=== PATIENT | female | born 1965 | race Caucasian/White ===

== ENCOUNTER → 2017-01-17 | Outpatient (CLI) | payer BC ==
[~2017-01-17] MED LIST: ACET-1256 PO; CYCL10TA6 PO; DICL-201 PO; GABA-113 PO; GADAVIST IV PRN; HYDR-5688 PO; LOSA1TAB38 PO; MRLP17 PO
--- NOTE | 2017-01-17 22:01 | DIAGNOSTIC IMAGING REPORT ---
LUMBAR SPINE COMBINATION CLINICAL HISTORY: 51 years-old Female presenting with STENOSIS, CAUDA EQUINA COMPRESSION, lumbar pain with bilateral leg pain, no strength in the legs, trouble walking, history of falls, history of surgery January 2016, acutely worsened on 01/06/2017. TECHNIQUE: Multisequence, multiplanar MR imaging of the lumbar spine was performed before and after the administration of intravenous contrast. IV contrast: 12 mL of Gadavist. COMPARISON: 01/08/2016. FINDINGS: Localizer images: Unremarkable. Postsurgical changes of bilateral transpedicular screw and brenden fixation of L3-L5 with laminectomy defects of L3 and L4. Regional susceptibility artifact limits evaluation. Adequate posterior decompression at these levels. Slight straightening of normal lumbar lordosis. Vertebral bodies maintain normal height, alignment, and bone marrow signal intensity apart from a benign hemangioma at L5 and minimal endplate edema at L2-3. Diffuse intervertebral disc desiccation. Multilevel degenerative changes detailed below: L1-2 disc bulge and facet arthropathy. Mild bilateral neural foraminal narrowing. No significant spinal canal narrowing. L2-3: Minimal endplate bony edema noted, likely degenerative in etiology. Focal disc bulge, ligamentum flavum thickening, and facet arthropathy. There is also focal disc extrusion along the right paramedian aspect with cranial and potentially caudal migration. The extruded disc material may also extend along the right lateral aspect of the thecal sac adjacent to the facet joint (series 5 image 7). This results in significant effacement of the right lateral recess at L2-3 as well as near complete effacement of CSF. This has significantly progressed since the prior exam in 2015. Moderate bilateral neural foraminal narrowing. L3-4: Effacement of the right lateral aspect of the thecal sac at the level of L3 with nonenhancing material (series 9 image 11) resulting in near complete effacement of CSF. No significant neural foraminal stenosis. L4-5: Disc bulge and facet arthropathy result in mild bilateral neural foraminal narrowing. No significant spinal canal narrowing. L5-S1: Minimal disc bulge without significant spinal canal or neural foraminal narrowing. Spinal cord in this in good position at the level of L1. Cauda equina has a buckled appearance suggesting impingement at the L2-3 level. Extensive fatty atrophy of paraspinal musculature. Superficial subcutaneous fluid collection in the posterior soft tissues likely seroma. This extends from the level of T12-L5. Mild enhancements of the distal spinal cord and nerve roots may relate to postsurgical change. Partially visualized cystic structures in the pelvis may be intraovarian. One of these cystic structures measures nearly 5 cm. IMPRESSION: 1. Postsurgical changes of L3-L5 posterior fusion and laminectomies of L3-4. Adequate posterior decompression of the thecal sac at these levels. Postsurgical seroma in the superficial soft tissues. 2. Interval development of significant spinal stenosis at L2-3 with findings concerning for cauda equina impingement, which appears to be due to an extruded L2-3 disc. The effacement of the thecal sac extends to the level of the inferior endplate of L3, which appears to be secondary to nonenhancing material along the right lateral aspect of the thecal sac. This may represent additional extruded disc, suggesting both cranial and caudal migration. The presence of only mild bony edema at the L2-3 endplates suggests against infection/epidural abscess. Correlate for symptoms of cauda equina syndrome. 3. Very degrees of neural foraminal narrowing as above. 4. Cystic structures in the pelvis may be intraovarian, one of which measures nearly 5 cm. In the perimenopausal or postmenopausal setting, this is unexpected. Further evaluation with dedicated pelvic ultrasound on a nonurgent basis recommended. The report will be called/faxed according to standard departmental protocol. Electronically signed by: Mo Marks M.D. 01/17/2017 10:00 PM Dictated Date/Time: 01/17/2017 9:42 PM
== END | disposition home or self-care (01) ==
LOC: C.MRI 20:11
PROVIDERS: ATTEND Orthopaedic Surgery Orthopaedic Surgery of the Spine
DX: G83.4 Cauda equina syndrome (principal); M48.061 Spinal stenosis, lumbar region without neurogenic claudication

== ENCOUNTER 2017-02-08 05:54 | Inpatient (IN) | payer BC ==
--- NOTE | 2017-01-24 12:54 | PAT Medication Instructions ---
Service Date Jan 24, 2017. Current Home Medication List Acetaminophen (Tylenol), 500 TAB PO PRN Diclofenac (Voltaren), 75 MG PO BID Hydrochlorothiazide (Hctz), 50 MG PO QAM Hydrocodone/Acetaminophen 10MG/325MG (Moody 10MG/325MG), 1 TAB PO Q6H PRN for rn Losartan Potassium (Cozaar), 100 MG PO QPM [zoloft], 1 TAB PO QPM Medication Instructions For Your Scheduled Surgery - Contact your surgeon for instructions for: Diclofenac (Voltaren), 75 MG PO BID - Hold the following medications the night before surgery: Losartan Potassium (Cozaar), 100 MG PO QPM - Hold the following medications the morning of surgery: Hydrochlorothiazide (Hctz), 50 MG PO QAM - Take the following medications the morning of surgery with a sip of water: Hydrocodone/Acetaminophen 10MG/325MG (Moody 10MG/325MG), 1 TAB PO Q6H PRN for rn (if needed, can be taken up to four hours before surgery) Acetaminophen (Tylenol), 500 TAB PO PRN (if needed, can be taken up to four hours before surgery) - Take the following medications as scheduled the night before surgery: [zoloft], 1 TAB PO QPM Hydrocodone/Acetaminophen 10MG/325MG (Moody 10MG/325MG), 1 TAB PO Q6H PRN for rn (if needed) Acetaminophen (Tylenol), 500 TAB PO PRN (if needed) If you have any questions please call us at [phone] or [phone] or [phone]
[2017-01-24 13:42] LABS: BASO % 0.5 %; BASO ABS # 0.04 K/uL (0-0.2); COMPLETE YES; EOS % 5.5 %; HEMATOCRIT 45.6 % (37-47); IG% 0.1 %; LYMPH % 30.6 %; MEAN CELL VOLUME 96.8 fL (80-100); MEAN CORPUSCULAR HEMOGLOBIN 33.3 pg (25-34); MEAN CORPUSCULAR HGB CONC 34.4 g/dl (32-36); MEAN PLATELET VOLUME 9.8 fL (7.4-10.4); MONO % 5.6 %; NEUT % 57.7 %; PLATELET COUNT 286 K/uL (130-400); RED BLOOD COUNT 4.71 M/uL (4.2-5.4); WHITE BLOOD COUNT 8.16 K/uL (4.8-10.8)
[2017-01-24 13:51] LABS: URINE APPEARANCE CLEAR (CLEAR); URINE BILIRUBIN NEG (NEG); URINE COLOR YELLOW; URINE NITRITE NEG (NEG); URINE SPECIFIC GRAVITY 1.023 (1.000-1.030); UROBILINOGEN NEG (NEG)
[2017-01-24 13:54] LABS: MANUAL MICROSCOPIC REQUIRED? NO; PROTHROMBIN TIME (PATIENT) 10.2 SECONDS (9.0-12.0); REVIEW REQ? NO
--- NOTE | 2017-01-24 13:58 | DIAGNOSTIC IMAGING REPORT ---
TWO VIEW CHEST CLINICAL HISTORY: Preoperative examination. FINDINGS: PA and lateral chest radiographs are compared to study dated 02/03/2016. The cardiomediastinal silhouette is unremarkable. The lungs and pleural spaces are clear. There is no pneumothorax. The bony thorax appears intact. Degenerative change is noted in the thoracic spine. Lumbar spinal fusion hardware is partially imaged. Cholecystectomy clips are present in the right upper quadrant. IMPRESSION: No active disease in the chest. Electronically signed by: Wai Galloway M.D. 01/24/2017 1:56 PM Dictated Date/Time: 01/24/2017 1:56 PM
[2017-01-24 15:34] LABS: BLOOD UREA NITROGEN 21 mg/dl (7-18); BUN/CREATININE RATIO 38.2 (10-20); CALCIUM 9.4 mg/dl (8.5-10.1); CARBON DIOXIDE 25 mmol/L (21-32); CHLORIDE 104 mmol/L (98-107); CREATININE 0.55 mg/dl (0.60-1.20); GLUCOSE 91 mg/dl (70-99); POTASSIUM 3.6 mmol/L (3.5-5.1); SODIUM 139 mmol/L (136-145)
[2017-01-25 16:29] VITALS: BMI 46.0
--- NOTE | 2017-02-07 11:52 | HISTORY & PHYSICAL EXAMINATION ---
DATE OF ADMISSION: 02/08/2017 HISTORY OF PRESENT ILLNESS: She has severe spinal stenosis of the spine, prior spinal reconstructive surgery. Her stenosis is up at to L2-L3 level of lumbar area. She has no gross deformity. MEDICATIONS: Include tramadol and losartan. PAST MEDICAL HISTORY: No anxiety or stroke. No asthma. No angina or chest pain. Gestational diabetes is positive. No blood disorders. No history of carcinoma. No renal or liver issues. She does list obesity. SOCIAL HISTORY: She is a smoker, 4-6 cigarettes per day. No alcohol. 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 PAST SURGICAL HISTORY: Left knee replacement, 2 C-sections, cholecystectomy, partial hysterectomy, and lumbar spine surgery. ALLERGIES: Denied. MEDICATIONS: Listed already including Zoloft, [place], Voltaren, and losartan. REVIEW OF SYSTEMS: She denies any fevers, sweats, chills, weight loss, gain or constitutional issues. Denies any HEENT complaints. Denies chest pain or palpitations. No asthma, wheezing, or shortness of breath. No nausea or vomiting. Her major complaint is musculoskeletal ower extremity difficulty with ambulation, weakness and occasional falling. OBJECTIVE: GENERAL: She is 5 feet 4 inches. She is 200 pounds. She is in distress. She communicates well. No anxiety or depression. Alert and oriented. VITAL SIGNS: Blood pressure 130/80, pulse 80. HEENT: Essentially normal. Specifically, pupils were reactive to light and accommodation. CARDIAC: Normal S1, S2. LUNGS: Clear. EXTREMITIES: Pulse was taken. There is no ectopy. ABDOMEN: Obese, nontender. Bowel sounds present. She has weakness of quadriceps function, iliopsoas function, profound decreased range of motion, gait abnormality, must use a cane or walker for support. Images were reviewed. She has some spinal stenosis above a prior fusion, postsurgical changes, significant stenosis at L2-L3, cauda equina impingement, no evidence of breakdown of implants. IMPRESSION: Includes a delightful patient with severe stenosis, prior lumbar spine surgery, slight degenerative scoliosis. DISPOSITION: Provinding a laminectomy and fusion at L1-L2, L2-L3, removal of existing rods and more than likely reinsertion to be done at [facility] coming up tomorrow.
[2017-02-08] VITALS (9 sets, daily range): BP systolic 134–171; BP diastolic 79–101; PULSE 81–100; TEMP 36.3–37; O2SAT 94–100; Ht 162.6 cm; Wt 121.5 kg
[~2017-02-08] VITALS: Ht 162.6 cm; Wt 121.5 kg
[~2017-02-08 05:54] MED LIST changes: -CYCL10TA6 PO; -GABA-113 PO; -GADAVIST IV PRN; +HYDR-4079 PO; -HYDR-5688 PO; +HYDR50TA3 PO; -MRLP17 PO; +zoloft PO
[2017-02-08] MEDS ORDERED: LACTATED RINGER'S 1000ML 1,000 ML IV SCH (06:00)
[2017-02-08] MEDS ORDERED: CEFAZOLIN 3000MG IV PUSH 15 ML IV SCH (06:00)
[2017-02-08] MEDS ORDERED: NSS 1000ML IV SCH (06:00)
[2017-02-08] MEDS ORDERED: GELATIN SPONGE SZ 100 ONE ×3 (06:49→10:05)
[2017-02-08] MEDS ORDERED: BUPIVACAINE/EPINEPHRINE 0.5% MPF 1:200,000 30 ML VIAL ONE (06:50)
[2017-02-08] MEDS ORDERED: THROMBIN FOR SOLN 20000 UNIT KIT ONE (06:50)
[2017-02-08] MEDS ORDERED: VANCOMYCIN HCL 1000MG/20ML VIAL ONE (06:50)
[2017-02-08] MEDS ORDERED: BACITRACIN 50000 UNIT VIAL ONE (06:50)
[2017-02-08] MEDS ORDERED: ONDANSETRON INJ 2 MG/ML 2 ML VIAL ONE ×2 (06:56→08:43)
[2017-02-08] MEDS ORDERED: LIDOCAINE HCL 2% 2 ML VIAL (20MG/ML) ONE (06:56)
[2017-02-08] MEDS ORDERED: MIDAZOLAM HCL 1 MG/ML 2ML VIAL ONE (06:56)
[2017-02-08] MEDS ORDERED: GLYCOPYRROLATE INJ 0.2 MG/ML VIAL ONE ×2 (06:56→08:43)
[2017-02-08] MEDS ORDERED: NEOSTIGMINE METHYLSULFATE 5 MG/5 ML SYR ONE (06:56)
[2017-02-08] MEDS ORDERED: DEXAMETHASONE SOD INJ 4 MG/ML VIAL ONE (06:56)
[2017-02-08] MEDS ORDERED: PROPOFOL IV EMULSION 10 MG/ML 20 ML VIAL IV ONE ×2 (06:56→08:42)
[2017-02-08] MEDS ORDERED: FENTANYL CITRATE INJ 50 MCG/1 ML 2 ML VIAL ONE ×4 (06:57→11:07)
--- NOTE | 2017-02-08 07:26 | History & Physical Bridge Note ---
H&P Re-Evaluation Bridge Note: I have examined the patient, reviewed the History & Physical and in the interval since the performance of the History & Physical I have noted the following changes of clinical significance: PLAN; DECOMPRESSION AND FUSION L1- 2, L2-3, REMOVAL OF OLD IMPLANTS AND REPLACEMENT
[2017-02-08] MEDS ORDERED: HYDROmorphone INJ 2 MG/ML SYR/VIAL ONE (08:11)
[2017-02-08] MEDS ORDERED: ROCURONIUM BROMIDE 10 MG/ML 5 ML VIAL IV ONE (08:43)
[2017-02-08] MEDS ORDERED: PROMETHAZINE HCL INJ 6.25 MG in SODIUM CHLORIDE 0.9% 50ML 50 ML IV PRN (09:00)
[2017-02-08] MEDS ORDERED: ATROPINE SULFATE 0.1 MG/ML 5ML SYR IV PRN (09:00)
[2017-02-08] MEDS ORDERED: EpHEDrine SULFATE INJ 50 MG/ML AMP IV PRN (09:00)
[2017-02-08] MEDS ORDERED: ONDANSETRON INJ 2 MG/ML 2 ML VIAL IV PRN ×2 (09:00→11:45)
[2017-02-08] MEDS ORDERED: ACETAMINOPHEN 1000 MG/100 ML IV IV ONE (09:43)
--- NOTE | 2017-02-08 11:07 | DIAGNOSTIC IMAGING REPORT ---
SPINE ONE VIEW, ANY LEVEL HISTORY: 51 years-old Female REMOVE HARDWARE/LAMINECTOMY/FUSION L1-5 status post removal of hardware. Laminectomy and fusion at L1-L5 COMPARISON: Lumbar spine radiographs 01/06/2017, lumbar spine MRI 01/17/2017 TECHNIQUE: 2 spot fluoroscopic images of the lumbar spine were obtained utilizing 20.2 seconds fluoroscopy time FINDINGS: Posterior interbody brenden and screw fusion hardware is seen extending from L1-L5. There is a few millimeters anterolisthesis L3 on L4. Alignment is otherwise satisfactory. Multilevel endplate spurring and intervertebral disc space narrowing of the spine. IMPRESSION: Fluoroscopic assistance as above. Please see operative report for further details. The above report was generated using voice recognition software. It may contain grammatical, syntax or spelling errors. Electronically signed by: Juan Garces M.D. 02/08/2017 11:05 AM Dictated Date/Time: 02/08/2017 11:02 AM
--- NOTE | 2017-02-08 11:37 | [facility] Post Operative Brief Note ---
Immediate Operative Summary Operative Date Feb 08, 2017. Pre-Operative Diagnosis Spinal stenosis Post-Operative Diagnosis Spinal stenosis Procedure(s) Performed L1-L2, L2-L3 Laminectomy and Fusion, L3-L4, L4-L5 Removal Existing Hardware and Reimplantation of new hardware Surgeon Dr. Esequiel Smyth Finishing Wire Sawyer Surgeon(s) Charly Evans PA-C Estimated Blood Loss 500 mL Findings stenosis and instability Specimens Permanent specimens A: Explanted hardware lumbar spine Complication(s) None Disposition Recovery Room / PACU
[2017-02-08] MEDS: FENTANYL CITRATE INJ 50 MCG/1 ML 2 ML VIAL IV PRN ×7 (11:38→12:45)
[2017-02-08] MEDS ORDERED: METOCLOPRAMIDE HCL INJ 5 MG/ML 2 ML VIAL IV PRN (11:45)
[2017-02-08] MEDS ORDERED: LORAZEPAM INJ 1 MG in SYRINGE 0.5 ML IV PRN (11:45)
[2017-02-08] MEDS ORDERED: CEFAZOLIN IV 1,000 MG in DEXTROSE 5% 50ML 50 ML IV SCH (11:45)
[2017-02-08] MEDS ORDERED: MAGNESIUM HYDROXIDE SUSP 30 ML UDC PO PRN (11:45)
[2017-02-08] MEDS ORDERED: HYDROmorphone INJ 1 MG/ML SYR IV PRN (11:45)
[2017-02-08] MEDS ORDERED: LORAZEPAM 1 MG TAB PO PRN (11:45)
[2017-02-08] MEDS ORDERED: OXYCODONE/ACETAMINOPHEN 5-325 TAB PO PRN ×2 (11:45)
[2017-02-08] MEDS ORDERED: HYDROmorphone INJ 2 MG/ML SYR/VIAL IV PRN (11:45)
[2017-02-08] MEDS ORDERED: ACETAMINOPHEN 325 MG TAB PO PRN (11:45)
[2017-02-08] MEDS ORDERED: PROMETHAZINE HCL INJ 12.5 MG in SODIUM CHLORIDE 0.9% 50ML 50 ML IV PRN (11:45)
[2017-02-08] MEDS: HYDROmorphone INJ 1 MG/ML SYR IV PRN ×6 (11:55→12:21)
[2017-02-08 12:11] LABS: HEMATOCRIT 39.7 % (37-47)
[2017-02-08] MEDS ORDERED: LORAZEPAM 2 MG/ML 1 ML VIAL ONE (12:22)
--- NOTE | 2017-02-08 12:29 | OPERATIVE REPORT ---
DATE OF OPERATION: 02/08/2017 PREOPERATIVE DIAGNOSIS: Severe stenosis and instability, lumbar spine at L1, L2, L3 and instabilities at the same levels. POSTOPERATIVE DIAGNOSIS: Same. PROCEDURES: 1. Extraction of prior instrumentation L3, L4, L5 lumbar spine. 2. Decompression lumbar spine at L1-L2, and L2-L3 lumbar spine. 3. Pedicle screw instrumentation, L1-L2 and revision L3, L4 and L5. 4. Posterior lateral effusion L1 through L4. 5. Posterior decompression laminectomy, foraminotomy and facetectomy L1 through L3. SURGEON: Dr. Smyth. TRUCK CLEANER: Charly Evans PA-C. COMPLICATIONS: Zero. BLOOD LOSS: Controlled, 500 mL. Sponge and needle count correct at the close. Globus instrumentation used. DESCRIPTION OF PROCEDURE: The patient was taken to the operating room and general intubated anesthetic provided to the patient. Antibiotics delivered, Acevedo catheter inserted, placed prone, prepped and draped sterile. We made a skin incision and fascia incision, putting a deep self-retaining retractor. The dissection was fairly tedious, but fairly easily done. We had cold exposure from L1 down to L5 bilaterally. I first removed the longitudinal brenden and caps from L3-L5. This opened up the spinal area. I meticulously decompressed the spinal canal L1, L2, L3, facetectomy, foraminotomy, partial facetectomy. We took off a significant amount of ligamentum flavum hypertrophy that was placed with the mechanical decompression of the associated nerve roots. We then instrumented the spine. On the right hand side, we exchanged screws and safely got pedicle screws in L1, L2, L3, L4, L5 on the right and duplicated the same effort on the left hand side. We connected it with a lordotic brenden for support. We tightened down the caps. We used a cross connector as well. We did posterolateral bone grafting at L1 down to L4 to initiate the fusion. We first irrigated thoroughly with about 800 mL of fluid, put some Gelfoam on the dura, put some vancomycin powder as well. We closed fascia to fascia with #1 Vicryl suture over a Hemovac drain, 2-0 in the subcuticular layer and staple gun on the skin. Sterile dressing applied. The patient returned to recovery room satisfactory and stable. No apparent complications. I attest to the content of the Intraoperative Record and any orders documented therein. Any exception s are noted below.
[2017-02-08] MEDS ORDERED: NURSING VERBAL MED ORDER ONE ×2 (12:30→12:45)
[2017-02-08] MEDS ORDERED: KETOROLAC TROMETHAMINE 30 MG/ML VIAL ONE (12:35)
[2017-02-08] MEDS ORDERED: HYDROmorphone HCL 0.5MG/ML 50 ML CASSETTE ONE (12:35)
[2017-02-08] MEDS ORDERED: KETOROLAC TROMETHAMINE 30 MG/ML VIAL IV. STA (13:20)
[2017-02-08] MEDS ORDERED: FENTANYL CITRATE INJ 50 MCG/1 ML 2 ML VIAL IV PRN (13:30)
[2017-02-08] MEDS ORDERED: NALOXONE HCL 0.4 MG/1 ML VIAL/CARP IV PRN (13:45)
[2017-02-08] MEDS: SODIUM CHLORIDE 0.9% 1000ML 1,000 ML IV SCH ×2 (13:45→14:23)
[2017-02-08] MEDS: HYDROmorphone HCL 0.5MG/ML 50 ML CASSETTE IV PRN (15:03)
[2017-02-08] MEDS: CEFAZOLIN IV 2,000 MG in SYRINGE 0 ML IV SCH ×2 (16:24→23:28)
[2017-02-08] MEDS: ACETAMINOPHEN IV 1,000 MG in EMPTY BAG 0 ML IV SCH ×2 (16:24→23:29)
[2017-02-08] MEDS: DEXAMETHASONE INJ 10 MG in SYRINGE 0 ML IV SCH ×2 (16:25→23:29)
[2017-02-08] MEDS: LOSARTAN POTASSIUM 50 MG TAB PO SCH (21:04)
[2017-02-09] VITALS (9 sets, daily range): BP systolic 141–164; BP diastolic 80–95; PULSE 95–112; TEMP 36.8–37.5; O2SAT 93–99
[2017-02-09] MEDS: SODIUM CHLORIDE 0.9% 1000ML 1,000 ML IV SCH ×2 (01:33)
[2017-02-09] MEDS ORDERED: BISACODYL 5 MG TABEC PO PRN (06:00)
[2017-02-09] MEDS ORDERED: BISACODYL 10 MG SUPP PR PRN (06:00)
[2017-02-09] MEDS: HYDROmorphone HCL 0.5MG/ML 50 ML CASSETTE IV PRN ×2 (07:04→22:51)
[2017-02-09] MEDS: ACETAMINOPHEN IV 1,000 MG in EMPTY BAG 0 ML IV SCH ×2 (07:35→15:31)
[2017-02-09] MEDS: DEXAMETHASONE INJ 10 MG in SYRINGE 0 ML IV SCH ×2 (07:35→15:30)
[2017-02-09] MEDS: CEFAZOLIN IV 2,000 MG in SYRINGE 0 ML IV SCH (07:35)
[2017-02-09] MEDS: HYDROCHLOROTHIAZIDE 50 MG TAB PO SCH (07:36)
[2017-02-09] MEDS: POLYETHYLENE (MIRALAX) 17 GM PACK PO SCH (07:36)
--- NOTE | 2017-02-09 10:22 | Anesthesiology Progress Note ---
Anesthesia Post Op Note Date & Time Feb 09, 2017 at 10:21 Vital Signs Vital Signs Past 12 Hours Date Time Temp Pulse Resp B/P (MAP) Pulse Ox O2 Delivery O2 Flow Rate FiO2 02/09/17 07:47 36.9 107 16 156/92 (113) 99 Room Air 02/09/17 07:30 Room Air 02/09/17 03:50 36.8 95 14 141/82 (101) 97 Room Air 02/09/17 00:00 Room Air 02/08/17 23:12 36.8 100 20 151/90 (110) 96 Room Air Notes Mental Status: alert / awake / arousable, participated in evaluation Pt Amnestic to Procedure: Yes Nausea / Vomiting: adequately controlled Pain: adequately controlled Airway Patency, RR, SpO2: stable & adequate BP & HR: stable & adequate Hydration State: stable & adequate Anesthetic Complications: no major complications apparent
--- NOTE | 2017-02-09 11:18 | PROGRESS NOTE ---
DATE: 02/09/2017 OBJECTIVE: Vital signs stable, alert, oriented. Mentation normal. Improvement in neurological status. 39.7 hematocrit. ASSESSMENT: Status post reconstructive lumbar spine surgery. DISPOSITION: We will get up and ambulatory today. We are pushing for [facility]. I think she needs a good 7-10 days there I think is the appropriate pathway as well. Hopefully get her to [facility] tomorrow or the next day.
[2017-02-09] MEDS ORDERED: NURSING VERBAL MED ORDER ONE (14:45)
[2017-02-09] MEDS: LOSARTAN POTASSIUM 50 MG TAB PO SCH (20:43)
[2017-02-10] MEDS: DEXAMETHASONE INJ 10 MG in SYRINGE 0 ML IV SCH
[2017-02-10] MEDS: ACETAMINOPHEN IV 1,000 MG in EMPTY BAG 0 ML IV SCH ×3 (00:01→16:00)
[2017-02-10 03:00] VITALS: BP 138/78; PULSE 95; TEMP 36.7; TEMP 36.9; O2SAT 94; O2SAT 96
[2017-02-10] MEDS: HYDROmorphone HCL 0.5MG/ML 50 ML CASSETTE IV PRN (06:56)
[2017-02-10] MEDS ORDERED: NURSING VERBAL MED ORDER ONE (07:15)
[2017-02-10 08:00] VITALS: BP 134/86; PULSE 88; TEMP 36.8; O2SAT 100
--- NOTE | 2017-02-10 08:05 | Discharge Instructions ---
Discharge Instructions Date of Service Feb 10, 2017. Admission Reason for Admission: Lumbar Spinal Stenosis Discharge Discharge Diagnosis / Problem: same, spinal reconstruction Discharge Goals Goal(s): Improve function Activity Recommendations Activity Limitations: as noted below Lifting Limitations: gradually increase as tolerated, until after follow-up appointment Exercise/Sports Limitations: gradually increase as tolerated May Resume Sexual Activity: after follow-up appointment Shower/Bathe: keep incision dry Driving or Machine Use: careful with bending . Current Hospital Diet Patient's current hospital diet: Regular Diet Discharge Diet Recommended Diet: Regular Diet Procedures Procedures Performed: L1-L2, L2-L3 Laminectomy and Fusion, L3-L4, L4-L5 Removal Existing Hardware and Reimplantation of new hardware Pending Studies Studies pending at discharge: no Medical Emergencies . Who to Call and When: Medical Emergencies: If at any time you feel your situation is an emergency, please call 911 immediately. . Non-Emergent Contact Non-Emergency issues call your: Surgeon . "Provider Documentation" section prepared by Esequiel Smyth. . VTE Core Measure Inpt VTE Proph given/why not?: Treatment not indicated
[2017-02-10] MEDS: HYDROCHLOROTHIAZIDE 50 MG TAB PO SCH (08:22)
[2017-02-10] MEDS: POLYETHYLENE (MIRALAX) 17 GM PACK PO SCH (08:22)
[2017-02-10 09:03] VITALS: O2SAT 100
[2017-02-10] MEDS: OXYCODONE HCL IR 5 MG TAB (IMMEDIATE RELEASE) PO PRN ×2 (11:34→16:06)
[2017-02-10 15:07] VITALS: BP 134/86; PULSE 88; TEMP 36.8; O2SAT 100
[2017-02-10 15:15] VITALS: BP 159/88; PULSE 107; TEMP 36.7; O2SAT 96
--- NOTE | 2017-02-11 08:55 | DISCHARGE SUMMARY ---
She is improved. She is stable. She was ready for discharge on 02/10/2017. That was accomplished, went to [facility]. She had no significant complications. No chest pain or shortness of breath. Vital signs stable. Neurological improvement seen already. Discharged home to [facility]. Follow up in 10 days. Instructions, precautions, warnings provided. Will continue with her medications.
== END 2017-02-10 18:10 | DRG 460 ==
LOC: C.ACU 05:54 → C.3E 11:38 → ENRESERV 12:16
PROVIDERS: ADMIT Orthopaedic Surgery Orthopaedic Surgery of the Spine; ATTEND Orthopaedic Surgery Orthopaedic Surgery of the Spine
PROC: 0SP004Z Removal of Internal Fixation Device from Lumbar Vertebral Joint, Open Approach (ICD-10-PCS; principal; 2017-02-08 07:30)
PROC: 0SG10K1 Fusion of 2 or more Lumbar Vertebral Joints with Nonautologous Tissue Substitute, Posterior Approach, Posterior Column, Open Approach (ICD-10-PCS; principal; 2017-02-08 07:30)
DX: M48.061 Spinal stenosis, lumbar region without neurogenic claudication (principal); Z68.41 Body mass index [BMI] 40.0-44.9, adult; M53.2X6 Spinal instabilities, lumbar region; F17.210 Nicotine dependence, cigarettes, uncomplicated; Z79.899 Other long term (current) drug therapy; Z79.891 Long term (current) use of opiate analgesic; Z98.1 Arthrodesis status; E66.9 Obesity, unspecified

== ENCOUNTER → 2017-03-23 | Outpatient (CLI) | payer BC ==
--- NOTE | 2017-03-23 15:53 | MAMMOGRAPHY REPORT ---
BILATERAL DIGITAL SCREENING MAMMOGRAM TOMOSYNTHESIS WITH CAD: 03/23/2017 CLINICAL HISTORY: Routine screening. Patient has no complaints. TECHNIQUE: Breast tomosynthesis in addition to standard 2D mammography was performed. Current study was also evaluated with a Computer Aided Detection (CAD) system. COMPARISON: Comparison is made to exams dated: 03/18/2016 mammogram, 03/11/2015 mammogram, 03/10/2014 beth mogram, 03/05/2012 mammogram, 03/07/2013 mammogram, and 03/04/2011 mammogram - [facility]ter. BREAST COMPOSITION: The tissue of both breasts is almost entirely fatty. FINDINGS: No suspicious masses, calcifications, or areas of architectural distortion are noted in ei ther breast. There has been no significant interval change compared to prior exams. IMPRESSION: ACR BI-RADS CATEGORY 1: NEGATIVE There is no mammographic evidence of malignancy. A 1 year screening mammogram is recommended. The pa tient will receive written notification of the results. Approximately 10% of breast cancers are not detected with mammography. A negative mammographic report should not delay biopsy if a clinically suggestive mass is present. Leny Reeder M.D. /:03/23/2017 10:35:03 [employer] Truck Driver: Shaniqua HAUSER(Constantine)(M), [facility] letter sent: Normal 1/2 BI-RADS Code: ACR BI-RADS Category 1: Negative
== END | disposition home or self-care (01) ==
LOC: C.MAMM 08:23
PROVIDERS: ATTEND Family Medicine
DX: Z12.31 Encounter for screening mammogram for malignant neoplasm of breast (principal)

== ENCOUNTER 2019-09-03 13:18 | Inpatient (IN) ==
[2019-09-03] MEDS ORDERED: PROCHLORPERAZINE 2 ML IV ONE (15:12)
[2019-09-03] MEDS ORDERED: ACETAMINOPHEN 500 MG TAB PO STA (15:12)
[2019-09-03] MEDS ORDERED: SODIUM CHLORIDE 0.9% 1000ML 1,000 ML IV SCH (15:14)
[2019-09-03 15:44] LABS: Basophils # (auto) 0.02 K/uL (0-0.2); Basophils % (auto) 0.1 %; Eosinophils # (auto) 0.04 K/uL (0-0.5); Eosinophils % (auto) 0.3 %; Hematocrit (blood only) 42.9 % (37-47); Hemoglobin 14.7 g/dL (12.0-16.0); Immature Granulocytes # (auto) 0.03 K/uL (0.00-0.02); Immature Granulocytes % (auto) 0.2 %; Lymphocytes # (auto) 1.31 K/uL (1.2-3.4); Lymphocytes % (auto) 9.8 %; Mean Corpuscular Hemoglobin 33.3 pg (25-34); Mean Corpuscular Hgb Conc 34.3 g/dL (32-36); Mean Corpuscular Volume 97.3 fL (80-100); Mean Platelet Volume 10.5 fL (7.4-10.4); Monocytes # (auto) 1.07 K/uL (0.11-0.59); Neutrophils # (auto) 10.94 K/uL (1.4-6.5); Neutrophils % (auto) 81.6 %; Platelet Count 258 K/uL (130-400); RDW Coefficient of Variation 12.6 % (11.5-14.5); RDW Standard Deviation 44.6 fL (36.4-46.3); Red Blood Count 4.41 M/uL (4.2-5.4); White Blood Count 13.41 K/uL (4.8-10.8)
[2019-09-03 15:54] LABS: BUN Creatinine Ratio 26.5 (10-20); Calcium 9.8 mg/dl (8.5-10.1); Creatinine Clr Calc Pharmacy 92.7 ml/min; Est GFR (African American) 85.2; Est GFR (Non-African American) 73.5; Potassium 2.8 mmol/L (3.5-5.1)
--- NOTE | 2019-09-03 15:59 | CT Scan Report ---
HEAD CT NONCONTRAST CT DOSE: 1121.36 mGy.cm HISTORY: Neck pain. headache TECHNIQUE: Multiaxial CT images of the head were performed without the use of intravenous contrast. A utomated exposure control was utilized for this study. A dose lowering technique was utilized adheri ng to the principles of ALARA. Comparison: None. Findings: The paranasal sinuses and mastoid air cells are clear. The calvarium and skull base are int act. The ventricles and sulci are within normal limits. There is no mass, hematoma, midline shift, or acute infarct. Impression: No acute intracranial abnormality. ACT 112: Negative or not required by law. Electronically signed by: Zhen Low M.D. 09/03/2019 3:58 PM
--- NOTE | 2019-09-03 16:03 | CT Scan Report ---
CERVICAL SPINE CT CT DOSE: HISTORY: neck pain TECHNIQUE: Multiaxial CT images of the cervical spine were performed and reformatted in the sagittal and coronal plane without the use of contrast. A dose lowering technique was utilized adhering to th e principles of ALARA. COMPARISON: None. FINDINGS: No fractures. Prevertebral soft tissues and the C1-C2 interval are intact. No pneumothorax. Mild dextroscoliosis which could be positional. 2 mm of anterolisthesis of C3 on C4 is likely due to long-standing degenerative change. Severe disc space narrowing at C4-C5 and moderate disc space narr owing at C5-C6 with endplate osteophytes. Mild right and moderate left facet osteoarthritis throughou t the majority of the cervical spine. Mild central canal narrowing at C4-C5 and C5-C6 due to the broa d-based posterior disc osteophyte complexes. IMPRESSION: 1. No fractures within the cervical spine. 2. Degenerative changes as described above. ACT 112: Negative or not required by law. Electronically signed by: Zhen Low M.D. 09/03/2019 4:01 PM
[2019-09-03] MEDS ORDERED: POTASSIUM CHLORIDE 10 MEQ TABCR PO STA (16:15)
[2019-09-03 17:21] LABS: Lyme Ab IgG w/WB Rflx Negative (Negative); Lyme Ab IgM w/WB Rflx Negative (Negative)
--- NOTE | 2019-09-03 17:46 | Fluoroscopy Report ---
FLUOROSCOPIC GUIDED LUMBAR PUNCTURE CLINICAL HISTORY: Neck pain. Leukocytosis. PROCEDURE: The risks, benefits, and alternatives to the procedure is discussed with the patient who v oiced understanding. Written informed consent was obtained. The patient was placed prone on the fluor oscopy table. The lower back was prepped and draped in the usual sterile fashion. 1% lidocaine was us ed for local anesthesia. A 20-gauge spinal needle was inserted into the L3-L4 laminectomy level, and approximately 10 cc of clear colorless cerebrospinal fluid was removed. A single spot fluoroscopic im age was saved. The patient tolerated the procedure well. There were no immediate complications. The p atient was then returned to the emergency department for further observation. Fluoroscopy time: 4 seconds. IMPRESSION: Fluoroscopic guided lumbar puncture with removal of approximately 10 cc of cerebrospinal fluid. There were no immediate complications. ACT 112: Negative or not required by law. Electronically signed by: Wai Galloway M.D. 09/03/2019 5:45 PM
[2019-09-03 18:05] LABS: CSF Glucose 71 mg/dl (40-70); Total Protein CSF 35.1 mg/dl (15-45)
[2019-09-03 18:24] LABS: Appearance CSF Clear; CSF Count Tube # 3; CSF Xanthrochromic No xanthochromia; Color CSF Colorless
[2019-09-03 18:26] LABS: Red Blood Cell CSF (A) 2 /uL (0-)
[2019-09-03 18:29] LABS: White Blood Cell CSF (A) 18 /uL (0-5)
[2019-09-03] MEDS ORDERED: VANCOMYCIN CONSULT ACTIVE PRN ×2 (18:34→21:14)
[2019-09-03] MEDS ORDERED: cefTRIAXone SODIUM 2,000 MG/70 ML BAG IV STA (18:34)
[2019-09-03] MEDS ORDERED: VANCOMYCIN HCL 2,500 MG in SODIUM CHLORIDE 0.9% 500 ML IV ONE (18:34)
[2019-09-03] MEDS ORDERED: DEXAMETHASONE SOD INJ 4 MG/ML VIAL IV STA (18:34)
[2019-09-03 18:35] LABS: CSF Chemistry Tube # 1
[2019-09-03] MEDS ORDERED: AMPICILLIN 2,000 MG in SODIUM CHLOR 0.9% AD-VAN 100 ML IV SCH (18:45)
--- NOTE | 2019-09-03 19:02 | History & Physical Report ---
Date of Service September 03, 2019 Assessment & Plan (1) Meningitis: Patient came to the emergency department with neck pain leukocytosis and vomiting lumbar puncture is abnormal with elevated white count mildly elevated protein concern for meningitis was undertaken cultures were sent patient was initiated on Rocephin ampicillin vancomycin and dexamethasone which will be continued until cultures are negative. This will be also unless the bio fire analysis of cerebrospinal fluid confirms a viral meningitis which is more likely to be discovered. Patient was administered dexamethasone in the emergency department prior to antibiotic ministration this might be continued the last Gram stain or culture confirmed meningococcal suspicion (2) Lumbar stenosis: Patient with history of chronic pain lumbar spinal stenosis status post surgical repair taking gabapentin which will be continued with offered Tylenol and morphine as needed (3) Diabetes: Patient typically takes Trulicity and metformin typically seeing [facility] patient week given sliding scale insulin and these medications will be held at this time she will be on a carbohydrate conservative diet (4) Hypothyroidism: Patient be maintained on Synthroid 25 mcg a day (5) Hypertension: Patient typically is on hydrochlorothiazide this is held that she is hydrated after lumbar puncture. Patient is marked hypokalemia in the ER this will be augmented by IV fluid and oral medication a magnesium will be checked in the morning (6) DVT prophylaxis: SCDs will be employed for DVT prevention given recent lumbar puncture History of Present Illness Primary Care Provider: [facility] 54-year-old female who has a history of diabetes chronic back pain who presents with 2-day history of headache neck pain and vomiting. She is found be markedly hypokalemic with a potassium of 2.8 however she has leukocytosis and there was initially some concern of possible meningitis. A lumbar puncture was performed which showed elevation of white count normal glucose and elevated protein. Subsequently a concern for meningitis was undertaken the patient was placed in isolation she was given ampicillin vancomycin dexamethasone and ceftriaxone. She was asked to be admitted until culture results and bio fire analysis of her cerebrospinal fluid could be undertaken. Remainder of her laboratories incl uding renal function hemoglobin and glucose were normal. The patient has a pending Lyme test also. Allergies Allergy/AdvReac Type Severity Reaction Status Date / Time celecoxib Allergy Intermediate RASH, Verified 09/03/19 15:21 TOLERATES ADVIL adhesive Allergy Unknown REDNESS Verified 09/03/19 15:21 WITH BANDAIDS Home Medications Home Medications Medication Instructions Recorded Confirmed Type dulaglutide [Trulicity] 1.5 mg SUBCUT WK 09/03/19 09/03/19 History gabapentin 300 - 600 mg PO BID 09/03/19 09/03/19 History hydrochlorothiazide 25 mg PO QAM 09/03/19 09/03/19 History levothyroxine 25 mcg PO QAM 09/03/19 09/03/19 History metformin 500 mg PO QAM 09/03/19 09/03/19 History naproxen 375 mg PO BID 09/03/19 09/03/19 History Past Med/Surg History Surgical History History of section History of cholecystectomy History of dilation and curettage History of foot surgery History of hysteroscopy with endometrial ablation Family History Mother Breast cancer Social History Feels Safe at Home: Yes Smoking Status: Current every day smoker Review of Systems Review of Systems: Mild distress and fatigue no headache, blurry or double vision no speech or swallowing issues no chest pain, pressure or palpitations no shortness of breath, cough or wheezes no abdominal pain, nausea or vomiting, diarrhea or constipation no dysuria, hematuria or frequency no focal joint pain or swelling no back pain, CVA tenderness or radicular pain no bruising, bleeding or rashes no focal signs of weakness or numbness or altered sensation no complaints or anxiety or depression. Physical Exam Physical Exam: The patient appeared well nourished and normally developed. Vital signs as documented. Head exam is normocephalic atraumatic no scleral icterus Neck is without JVD, thyromegaly, or carotid bruits. Lungs are clear to auscultation, no focal loss of breath sounds Cardiac exam, Rhythm is regular.. No murmurs, rubs or gallops. Abdominal exam reveals normal bowel sounds, soft non tender, no masses Extremities are nonedematous and both pedal pulses are normal. Neurologic exam is alert and oriented, no focal loss of strength or sensation Skin is without bruises or rashes Psychologically is without concerns for anxiety or depression Results & Data Results & Data ([facility]) Vital Signs (Past 12 Hours) Vital Signs Temp Pulse Pulse Resp BP Pulse Ox 09/03/19 18:01 97 H 12 96 09/03/19 18:00 91 H 19 132/84 95 09/03/19 17:45 94 H 16 143/81 H 94 09/03/19 17:37 96 H 98 09/03/19 17:36 126/83 96 09/03/19 16:30 96 H 16 134/86 09/03/19 16:00 101 H 19 09/03/19 15:38 95 H 18 98 09/03/19 15:30 98 H 22 09/03/19 15:23 98 H 20 09/03/19 13:25 98.4 F 98 H 18 154/[address] scan of the head 09/03/2019- negative CT scan of the neck 09/03/2019 no fractures within the cervical spine degenerative changes with mild central canal narrowing C4-5 C5-6 due to broad- based posterior disc osteophyte complexes. Code Status & VTE Plan VTE Prophylaxis Plan VTE Prophylaxis will be ordered: No PG Care Time/CCT Total # of Minutes Spent Total Time Spent with Patient: Total time spent is greater than 50% in coordination of care (as documented) at patient's floor/unit and/or counseling patient: Coding Level of Care Code 42361 Initial Inpt Care Lvl 3 Diagnoses Meningitis G03.9 Lumbar stenosis M48.061 Diabetes E11.9 Hypothyroidism E03.9 Hypertension I10 DVT prophylaxis Z29.9
--- NOTE | 2019-09-03 19:19 | Emergency Department Note ---
History of Present Illness General Chief complaint: Vomiting Stated complaint: VOMITING, NECK PAIN Time Seen by Provider: 09/03/19 14:37 Source: patient Mode of arrival: ambulatory Limitations: no limitations History of Present Illness Provider complaint: Headache, neck pain, vomiting Maximum Pain Intensity: 4 This patient is a 54-year-old female who presents to the emergency department with complaints of headache, neck pain and vomiting over the last several days. Patient states that she has not had a fever. Patient has a history of lumbar decompression and has hardware in place. She denies any history of significant headaches but does take gabapentin and NSAIDs for chronic back pain. Patient denies any chest pain, shortness of breath, abdominal pain, blood in the emesis or stools. Home Medications Home Medications Medication Instructions Recorded Confirmed Type dulaglutide [Trulicity] 1.5 mg SUBCUT WK 09/03/19 09/03/19 History gabapentin 300 - 600 mg PO BID 09/03/19 09/03/19 History hydrochlorothiazide 25 mg PO QAM 09/03/19 09/03/19 History levothyroxine 25 mcg PO QAM 09/03/19 09/03/19 History metformin 500 mg PO QAM 09/03/19 09/03/19 History naproxen 375 mg PO BID 09/03/19 09/03/19 History Allergies Allergy/AdvReac Type Severity Reaction Status Date / Time celecoxib Allergy Intermediate RASH, Verified 09/03/19 15:21 TOLERATES ADVIL adhesive Allergy Unknown REDNESS Verified 09/03/19 15:21 WITH BANDAIDS Past Med/Surg History Surgical History History of section History of cholecystectomy History of dilation and curettage History of foot surgery History of hysteroscopy with endometrial ablation Family History Mother Breast cancer Social History Feels Safe at Home: Yes Smoking Status: Current every day smoker Review of Systems See HPI for pertinent positives & negatives. and A total of 10 systems reviewed and were otherwise negative Physical Exam Vital Signs Vital Signs - 24 hr 09/03/19 13:25 09/03/19 15:23 09/03/19 15:30 Temperature 36.9 C Temperature Source Oral Pulse Rate 98 H 98 H 98 H Pulse Rate [Left Apical] Pulse Rate from SpO2 Sensor Pulse Rhythm [Left Apical] Pulse Strength [Left Apical] Respiratory Rate 18 20 22 Respiratory Effort / Characteristics Non-Labored Spontaneous Respiratory Depth Normal Blood Pressure 154/85 H Blood Pressure Mean 108 Pulse Oximetry 98 Oxygen Delivery Method Sepsis Recent Fever Within 48 Hours No Sepsis New/Unexplained Change in Mental Status No Sepsis Action Taken by Nursing No Action Required 09/03/19 15:38 09/03/19 16:00 09/03/19 16:30 Temperature Temperature Source Pulse Rate 101 H 96 H Pulse Rate [Left Apical] 95 H Pulse Rate from SpO2 Sensor Pulse Rhythm [Left Apical] Regular Pulse Strength [Left Apical] Normal Respiratory Rate 18 19 16 Respiratory Effort / Characteristics Non-Labored Spontaneous Respiratory Depth Normal Blood Pressure 134/86 Blood Pressure Mean 102 Pulse Oximetry 98 Oxygen Delivery Method Room Air Sepsis Recent Fever Within 48 Hours Sepsis New/Unexplained Change in Mental Status Sepsis Action Taken by Nursing 09/03/19 17:36 09/03/19 17:37 09/03/19 17:45 Temperature Temperature Source Pulse Rate 96 H 94 H Pulse Rate [Left Apical] Pulse Rate from SpO2 Sensor 92 H 97 H 94 H Pulse Rhythm [Left Apical] Pulse Strength [Left Apical] Respiratory Rate 16 Respiratory Effort / Characteristics Respiratory Depth Blood Pressure 126/83 143/81 H Blood Pressure Mean 98 96 Pulse Oximetry 96 98 94 Oxygen Delivery Method Sepsis Recent Fever Within 48 Hours Sepsis New/Unexplained Change in Mental Status Sepsis Action Taken by Nursing 09/03/19 18:00 09/03/19 18:01 Temperature Temperature Source Pulse Rate 91 H 97 H Pulse Rate [Left Apical] Pulse Rate from SpO2 Sensor 93 H 97 H Pulse Rhythm [Left Apical] Pulse Strength [Left Apical] Respiratory Rate 19 12 Respiratory Effort / Characteristics Respiratory Depth Blood Pressure 132/84 Blood Pressure Mean 109 Pulse Oximetry 95 96 Oxygen Delivery Method Sepsis Recent Fever Within 48 Hours Sepsis New/Unexplained Change in Mental Status Sepsis Action Taken by Nursing Vital signs reviewed. General: Generally well-appearing 54-year-old female, in no significant distress HEENT: No scleral icterus, PERRLA, neck supple. Atraumatic. Cardiovascular: Regular rate and rhythm, no extra sounds. Pulmonary: Clear to auscultation bilaterally, normal work of breathing. Abdomen: Soft, nontender, nondistended, positive bowel sounds. Musculoskeletal: Atraumatic, no peripheral edema. Nontender to palpation over the cervical, thoracic and lumbar spines. Tender to palpation of the trapezius muscles and cervical paraspinous muscles bilaterally Neurologic: Patient awake alert and oriented x 3, full range of motion of the neck without difficulty. Post surgical change noted to the lumbar spine that appears to be well-healed. Skin: Warm, dry, no rash Course Administered Medications Discontinued Medications Acetaminophen (Tylenol) 1,000 mg PO NOW STA Stop: 09/03/19 15:13 Last Admin: 09/03/19 15:35 Dose: 1,000 mg Documented by: [id number] Dexamethasone (Decadron) 10 mg IV NOW STA Stop: 09/03/19 18:35 Last Admin: 09/03/19 18:56 Dose: 10 mg Documented by: [id number] Diphenhydramine HCl (Benadryl Capsule) 25 mg PO NOW ONE Stop: 09/03/19 15:14 Last Admin: 09/03/19 15:36 Dose: 25 mg Documented by: [id number] Prochlorperazine (Compazine) 2 mls @ 1 mls/min IV ONE ONE Stop: 09/03/19 15:13 Last Admin: 09/03/19 15:35 Dose: 1 mls/min Documented by: [id number] Sodium Chloride (Nss 1000ml) 1,000 mls @ 999 mls/hr IV .Q1H1M CHAPITO Stop: 09/03/19 16:14 Last Infusion: 09/03/19 16:37 Dose: 0 mls/hr Documented by: [id number] Admin: 09/03/19 15:35 Dose: 999 mls/hr Documented by: [id number] Ceftriaxone Sodium (Rocephin) 2,000 mg in 70 mls @ 140 mls/hr IV NOW STA Stop: 09/03/19 19:03 Last Admin: 09/03/19 18:56 Dose: 140 mls/hr Documented by: [id number] Potassium Chloride (Klor-Con M10) 40 meq PO NOW STA Stop: 09/03/19 16:16 Last Admin: 09/03/19 18:17 Dose: 40 meq Documented by: [id number] Medical Decision Making Differential Diagnosis Differential diagnosis Intracranial hemorrhage, intracranial mass, migraine headache, tension headache, sinusitis, meningitis Medical Records Attestation: I reviewed the patient's medical records. Home Medications Current Medication List: was personally reviewed by me Laboratory Data Attestation: I reviewed the patient's lab results. Result diagrams: 09/03/19 15:27 09/03/19 15:27 Lab Results 09/03/19 09/03/19 09/03/19 Range/Units 15:27 15:27 15:27 WBC 13.41 H (4.8-10.8) K/uL RBC 4.41 (4.2-5.4) M/uL Hgb 14.7 (12.0-16.0) g/dL Hct 42.9 (37-47) % MCV 97.3 (80-100) fL MCH 33.3 (25-34) pg MCHC 34.3 (32-36) g/dL RDW Std Deviation 44.6 (36.4-46.3) fL RDW Coeff of Leo 12.6 (11.5-14.5) % Plt Count 258 (130-400) K/uL MPV 10.5 H (7.4-10.4) fL Immature Gran % (Auto) 0.2 % Neut % (Auto) 81.6 % Lymph % (Auto) 9.8 % Coles % (Auto) 8.0 % Eos % (Auto) 0.3 % Baso % (Auto) 0.1 % Neut # (Auto) 10.94 H (1.4-6.5) K/uL Lymph # (Auto) 1.31 (1.2-3.4) K/uL Coles # (Auto) 1.07 H (0.11-0.59) K/uL Eos # (Auto) 0.04 (0-0.5) K/uL Baso # (Auto) 0.02 (0-0.2) K/uL Immature Gran # (Auto) 0.03 H (0.00-0.02) K/uL Sodium 139 (136-145) mmol/L Potassium 2.8 L (3.5-5.1) mmol/L Chloride 105 (98-107) mmol/L Carbon Dioxide 30 (21-32) mmol/L Anion Gap 4.0 (3-11) BUN 24 H (7-18) mg/dl Creatinine 0.89 (0.6-1.2) mg/dl Est Cr Clr Drug Dosing 92.7 ml/min Est GFR ( Amer) 85.2 Est GFR (Non-Af Amer) 73.5 BUN/Creatinine Ratio 26.5 H (10-20) Glucose 118 H (70-99) mg/dl Calcium 9.8 (8.5-10.1) mg/dl CSF Appearance CSF Color Xanthrochromic CSF WBC (0-5) /uL CSF RBC (0-) /uL CSF Cell Count Tube # CSF Chemistry Tube # CSF Glucose (40-70) mg/dl CSF Total Protein (15-45) mg/dl Lyme Disease IgG Ab Negative (Negative) Lyme Disease IgM Ab Negative (Negative) 09/03/19 Range/Units 17:30 WBC (4.8-10.8) K/uL RBC (4.2-5.4) M/uL Hgb (12.0-16.0) g/dL Hct (37-47) % MCV (80-100) fL MCH (25-34) pg MCHC (32-36) g/dL RDW Std Deviation (36.4-46.3) fL RDW Coeff of Leo (11.5-14.5) % Plt Count (130-400) K/uL MPV (7.4-10.4) fL Immature Gran % (Auto) % Neut % (Auto) % Lymph % (Auto) % Coles % (Auto) % Eos % (Auto) % Baso % (Auto) % Neut # (Auto) (1.4-6.5) K/uL Lymph # (Auto) (1.2-3.4) K/uL Coles # (Auto) (0.11-0.59) K/uL Eos # (Auto) (0-0.5) K/uL Baso # (Auto) (0-0.2) K/uL Immature Gran # (Auto) (0.00-0.02) K/uL Sodium (136-145) mmol/L Potassium (3.5-5.1) mmol/L Chloride (98-107) mmol/L Carbon Dioxide (21-32) mmol/L Anion Gap (3-11) BUN (7-18) mg/dl Creatinine (0.6-1.2) mg/dl Est Cr Clr Drug Dosing ml/min Est GFR ( Amer) Est GFR (Non-Af Amer) BUN/Creatinine Ratio (10-20) Glucose (70-99) mg/dl Calcium (8.5-10.1) mg/dl CSF Appearance Clear CSF Color Colorless Xanthrochromic No xanthochromia CSF WBC 18 H* (0-5) /uL CSF RBC 2 (0-) /uL CSF Cell Count Tube # 3 CSF Chemistry Tube # 1 CSF Glucose 71 H (40-70) mg/dl CSF Total Protein 35.1 (15-45) mg/dl Lyme Disease IgG Ab (Negative) Lyme Disease IgM Ab (Negative) Imaging Data Radiologist's Impression: HEAD CT NONCONTRAST CT DOSE: 1121.36 mGy.cm HISTORY: Neck pain. headache TECHNIQUE: Multiaxial CT images of the head were performed without the use of intravenous contrast. Automated exposure control was utilized for this study. A dose lowering technique was utilized adhering to the principles of ALARA. Comparison: None. Findings: The paranasal sinuses and mastoid air cells are clear. The calvarium and skull base are intact. The ventricles and sulci are within normal limits. There is no mass, hematoma, midline shift, or acute infarct. Impression: No acute intracranial abnormality. ACT 112: Negative or not required by law. Electronically signed by: Zhen Low M.D. 09/03/2019 3:58 PM Dictated: 09/03/19 1553 Transcribed: 09/03/[address] DOSE: HISTORY: neck pain TECHNIQUE: Multiaxial CT images of the cervical spine were performed and reformatted in the sagittal and coronal plane without the use of contrast. A d ose lowering technique was utilized adhering to the principles of ALARA. COMPARISON: None. FINDINGS: No fractures. Prevertebral soft tissues and the C1-C2 interval are intact. No pneumothorax. Mild dextroscoliosis which could be positional. 2 mm of anterolisthesis of C3 on C4 is likely due to long-standing degenerative change. Severe disc space narrowing at C4-C5 and moderate disc space narrowing at C5-C6 with endplate osteophytes. Mild right and moderate left facet osteoarthritis throughout the majority of the cervical spine. Mild central canal narrowing at C4-C5 and C5-C6 due to the broad-based posterior disc osteophyte complexes. IMPRESSION: 1. No fractures within the cervical spine. 2. Degenerative changes as described above. ACT 112: Negative or not required by law. Electronically signed by: Zhen Low M.D. 09/03/2019 4:01 PM Dictated: 09/03/19 1558 Transcribed: 09/03/19 1558 Blood Pressure Blood Pressure Findings: Elevated blood pressure Blood Pressure Disposition: further management by hospitalist MDM Narrative This patient was evaluated and appeared to be in no significant distress. IV access was obtained and the patient was hydrated with normal saline solution. An order for cardiac monitoring was placed and the patient was found to be in normal sinus rhythm at 98 bpm. The patient was medicated with IV Compazine and IV Benadryl. CT scan of the head and neck was performed and reveals no acute abnormality, degenerative changes are noted. Patient's laboratory work reveals an elevated WBC. Given the patient's neck pain, headaches, vomiting and leukocytosis, a lumbar puncture was recommended. Patient agreed after disc ussing the pros and cons. Given her elevated BMI and postsurgical change to the lumbar spine, radiology was consulted for LP under fluoroscopy. CSF was obtained and reveals 18 WBCs, and slightly elevated glucose and normal protein. Patient was medicated with IV vancomycin, IV ceftriaxone and IV ampicillin after 10 mg of IV dexamethasone. Findings were discussed with the patient as well as Dr. Saldana of the hospitalist service and the patient will be evaluated for admission and further management. Impression & Plan Meningitis Discharge Plan Visit Data Chief Complaint: Vomiting Stated Complaint: VOMITING, NECK PAIN ED Provider: [facility] ED Midlevel Provider: Harris Gil Discharge Problem: Meningitis Patient Disposition: Home - Self-Care Discharge Instructions Adelita/Other Patient Handouts: Neck Exercises Active Neck Rotation, Radiculopathy Cervical Forms Stand Alone Forms: [facility], Virtual Emergency Department, Important Visit Information Prescriptions Prescriptions: No Action metformin 500 mg Tablet 500 mg PO QAM RF: 0 naproxen 375 mg Tablet 375 mg PO BID RF: 0 levothyroxine 25 mcg Tablet 25 mcg PO QAM RF: 0 hydrochlorothiazide 25 mg Tablet 25 mg PO QAM RF: 0 gabapentin 300 mg Tablet Extended Release 24 Hr 300 - 600 mg PO BID RF: 0 Trulicity 1.5 mg/0.5 mL Pen Injector 1.5 mg SUBCUT WK RF: 0 Referrals Referrals: [facility],Medicine [Primary Care Provider] -
[2019-09-03] MEDS ORDERED: CARBOHYDRATES FOR HYPOGLYCEMIA PO PRN (21:14)
[2019-09-03] MEDS ORDERED: GLUCOSE 10 TABS/TUBE PO PRN (21:14)
[2019-09-03] MEDS ORDERED: GLUCOSE 40% GEL 15 GM TUBE PO PRN (21:14)
[2019-09-03] MEDS ORDERED: MoRPHine SULFATE 2 MG/ML CARP IV PRN (21:14)
[2019-09-03] MEDS ORDERED: ONDANSETRON INJ 2 MG/ML 2 ML VIAL IV PRN (21:14)
[2019-09-03] MEDS ORDERED: LORazepam 0.5 MG/1 ML VIAL IV PRN (21:14)
[2019-09-03] MEDS ORDERED: DEXTROSE 50% 50 ML SYRINGE IV PRN (21:14)
[2019-09-03] MEDS ORDERED: GLUCAGON FOR INJ 1 MG VIAL SQ PRN (21:14)
[2019-09-03] MEDS ORDERED: PHARMACY GLYCEMIC MGMT CONSULT PRN (21:35)
[2019-09-03] MEDS: NAPROXEN 375 MG TAB PO SCH (22:22)
[2019-09-03] MEDS: POTASSIUM CHLORIDE 20 MEQ TABCR PO SCH (22:22)
[2019-09-03] MEDS: GABAPENTIN 300 MG CAP PO SCH (22:22)
[2019-09-03] MEDS: AMPICILLIN 2,000 MG in SODIUM CHLOR 0.9% AD-VAN 100 ML IV SCH (22:23)
[2019-09-03] MEDS: NSS + 20MEQ KCL 20 MEQ/1,000 ML BAG IV SCH (22:23)
[2019-09-03] MEDS: INSULIN ASPART 100 UNITS/ML 3 ML PEN SC SCH (22:26)
[2019-09-03] MEDS ORDERED: NovoLIN-N (NPH) PER UNIT CHARGE SQ ONE (22:30)
--- NOTE | 2019-09-03 22:46 | Pharmacy Report ---
Pharmacy Abx Dose Short Note - Date of Service September 03, 2019 - Assessment & Plan Assessment 54 year old F receiving ampicillin/vancomycin/Rocephin for treatment of possible meningitis Day # 1 of antimicrobial therapy. Plan Vancomycin * Vancomycin loading dose of 2500 mg IV x1 (21.9 mg/kg) given in ED. * Start vancomycin 1500 mg IV q10 hours at 0600 tomorrow (population pharmacokinetics suggest half-life of 8.88 hours plus elimination constant of 0.078 hr-1) * Trough prior to 1600 dose on 09/04/19 to assess for accumulation (will not be at steady state) * lower mg/kg plus extended dosing given due to body habitus. Pharmacy will continue to follow and will adjust dose/frequency as necessary. Thank you.
[2019-09-04] MEDS ORDERED: INSULIN ASPART 100 UNITS/ML 3 ML PEN SC SCH (04:00)
[2019-09-04] MEDS: AMPICILLIN 2,000 MG in SODIUM CHLOR 0.9% AD-VAN 100 ML IV SCH ×4 (04:01→21:39)
[2019-09-04] MEDS: LEVOTHYROXINE SODIUM 25 MCG TABLET PO SCH (05:25)
[2019-09-04] MEDS: VANCOMYCIN HCL 1,500 MG in SODIUM CHLORIDE 0.9% 500 ML IV SCH ×2 (05:25→17:24)
[2019-09-04] MEDS: cefTRIAXone SODIUM 2,000 MG in DEXTROSE 5% 50 ML IV SCH ×2 (05:25→18:10)
[2019-09-04 06:10] LABS: Hematocrit (blood only) 40.7 % (37-47); Mean Corpuscular Hgb Conc 34.4 g/dL (32-36); Mean Platelet Volume 10.7 fL (7.4-10.4); Platelet Count 254 K/uL (130-400); RDW Coefficient of Variation 12.7 % (11.5-14.5); RDW Standard Deviation 44.2 fL (36.4-46.3); Red Blood Count 4.24 M/uL (4.2-5.4); White Blood Count 11.08 K/uL (4.8-10.8)
[2019-09-04 06:40] LABS: Calcium 9.1 mg/dl (8.5-10.1); Creatinine Clr Calc Pharmacy 107.8 ml/min; Est GFR (African American) 106.5; Est GFR (Non-African American) 91.8; Magnesium 2.3 mg/dl (1.8-2.4); Potassium 4.1 mmol/L (3.5-5.1)
[2019-09-04 07:37] LABS: Estimated Average Glucose 120 mg/dl; Hemoglobin A1C 5.8 % (4.5-5.6)
[2019-09-04] MEDS ORDERED: NovoLIN-N (NPH) PER UNIT CHARGE SQ ONE (08:00)
[2019-09-04] MEDS: NAPROXEN 375 MG TAB PO SCH ×2 (08:26→20:09)
[2019-09-04] MEDS: POTASSIUM CHLORIDE 20 MEQ TABCR PO SCH ×2 (08:26→20:09)
[2019-09-04] MEDS: GABAPENTIN 300 MG CAP PO SCH ×3 (08:27→20:08)
[2019-09-04] MEDS: INSULIN ASPART 100 UNITS/ML 3 ML PEN SC SCH ×4 (08:30→21:09)
[2019-09-04] MEDS: NSS + 20MEQ KCL 20 MEQ/1,000 ML BAG IV SCH ×3 (09:37→22:06)
[2019-09-04] MEDS ORDERED: ACYCLOVIR SOD 775 MG in DEXTROSE 5% 250 ML IV SCH (10:00)
--- NOTE | 2019-09-04 10:51 | Pharmacy Report ---
Pharmacy Glycemic Short Note 2 - Date of Service September 04, 2019 - Glycemic Short BSG Results (Last 24 hours): 09/03/19 09/03/19 09/04/19 15:27 21:28 04:01 Glucose 118 H POC Glucose 157 H 163 H 09/04/19 09/04/19 05:32 08:11 Glucose 162 H POC Glucose 146 H OUTPATIENT ANTIDIABETIC REGIMEN: * Metformin 500mg daily * Trulicity 1.5mg weekly * HbA1c: 5.8% (09/04/19) ASSESSMENT: * Ms Quinones was admitted yesterday with suspicion of meningitis. * Pt received 10mg IV dexamethasone yesterday, which is expected to contribute to significant steroid-induced hyperglycemia. * NPH was given last evening and again this morning, to help cover DXM. * Novolog parameters loosened slightly this morning, as insulin requirements are expected to lessen as DXM wears off. PLAN FOR INPATIENT GLYCEMIC CONTROL: * Hold outpatient oral diabetes medications * Basal insulin * NPH 30 units SQ x1 dose last evening, then * NPH 15 units SQ x1 dose this morning * Bolus insulin * NovoLog per scale ACHS or Q6hrs while NPO * Goal Range: Low 110 mg/dL - High 140 mg/dL * Correction Factor: 20 mg/dL/unit * Nutritional / Prandial insulin per carb ratio of 1 unit per 7 grams CHO consumed PLAN FOR DISCHARGE: * Patient's A1c (5.8%) indicates great glycemic control as an outpatient. * Expect that pt may resume home regimen on discharge, as long as she does not report having episodes of hypoglycemia.
[2019-09-04 11:47] LABS: Cryptococcus neoformans/ga PCR Not Detected (NotDetected); Cytomegalovirus PCR Not Detected (NotDetected); Enterovirus PCR Not Detected (NotDetected); Escherichia coli K1 PCR Not Detected (NotDetected); Haemophilius influenzae PCR Not Detected (NotDetected); Herpes Simplex Virus 1 PCR Not Detected (NotDetected); Herpes Simplex Virus 2 PCR Not Detected (NotDetected); Human Herpes Virus 6 PCR Not Detected (NotDetected); Human Parechovirus PCR Not Detected (NotDetected); Listeria monocytogenes PCR Not Detected (NotDetected); Neisseria meningitidis PCR Not Detected (NotDetected); Streptococcus agalactiae PCR Not Detected (NotDetected); Streptococcus pneumoniae PCR Not Detected (NotDetected); Varicella Zoster Virus PCR Not Detected (NotDetected)
--- NOTE | 2019-09-04 12:16 | Hospitalist Progress Note ---
Date of Service September 04, 2019 Assessment & Plan (1) Meningitis: * Patient came to the emergency department with headache,neck pain, fevers at home, leukocytosis and vomiting * Lumbar puncture abnormal with elevated white count. Mildly elevated protein concern for meningitis was undertaken cultures were sent patient was initiated on Rocephin ampicillin vancomycin and dexamethasone in ER. * Of note, patient did receive dexamethasone prior to antibiotic administration and this could contribute to * Continue Rocephin, Ampicillin, Vancomycin until cultures are negative * Added Acyclovir empirically --> discontinued now that Biofire negative, Lyme CSF negative * COVID pending -- to be sent out as no more in house testing available today (2) Lumbar stenosis: * Patient with history of chronic pain lumbar spinal stenosis s/p surgical repair * Continue home gabapentin * Added tylenol, morphine prn (3) Diabetes: * A1c 5.8 * Patient on Trulicity 1.5mg SQ weekly and Metformin 500mg PO daily * BSG ac/hs * ISS while inpatient * BSGs acceptable * Continue to monitor (4) Hypertension: * Chronic. Well controlled --> currently 133/85 * Will resume HCTZ (5) Hypokalemia: * Markedly low K on admission at 2.8 --> given oral and IVF replacement. Mag 2.3 * K improved to 4.1 on AM labs * Mag wnl (6) Hypothyroidism: * Chronic. Last TSH 10/31/18 --> will repeat in AM * Continue home levothyroxine 25mcg PO daily (7) UTI (urinary tract infection): * Patient with reported hematuria/dysuria and typically asymptomatic with previous UTIs * UA obtained -- 1+ leuk esterase, >30 WBC, 10-30 RBC, trace blood, 1+ protein, trace glucose, 1+ ketones, negative bacteria * Follow cultures --> already on rocephin/ampicillin/vanc as above * May need further imaging (8) DVT prophylaxis: * SCDs will be employed for DVT prevention given recent lumbar puncture Admission and Anticipated Discharge Date Admission Date: September 03, 2019 Supervising Physician Co-Signing Physician Notes PA Supervision Note: I did not personally see or examine the patient today, but I verified all choudhury points of SWATHI Anderson's assessment and plan with the following exceptions/additions: Admitted with fevers at home, SUMMERS, neck pain, N/V, and concern for meningitis. Also with urinary symptoms but no CVA tenderness or back pain. While UA is abnormal, not sure it correlates with infection as no bacteria present, but perhaps. Urobilinogen concerning especially given N/V. No LFTs done on admission--> will order for in the AM but clinically seems improved. Check Hepatitis panel too in AM. COVID test sent today and pending -Continue abx for meningitis until CSF cx negative Subjective Patient evaluated this morning. Feeling better. Patient states that on admission she had a headache rated 7/10 and currently is a 3/10. She states this headache lasted 3 days prior to admission and started in her neck and wrapped up around to the front of her head. She states the headache is now "in the socket". She also notes that she had been having what felt like fever/chills with associated nausea/vomiting/cramping. Last episode of vomiting yesterday around 4-5pm. One episode of diarrhea this morning. She also notes that she has had UTIs in the past but has never had symptoms with them. She notes that she has had increased burning with urination and has noted blood in her urine over a month ago and again most recently. Pain neck/headache not worsened by flexion/extension of the head. She denies chest pain, shortness of breath, abdominal pain, n/v currently. Review of Systems Review of Systems: All systems reviewed & are unremarkable except as noted in HPI & below Physical Exam Constitutional: WD/WN, vitals as above + obese; no acute distress Eyes: + anicteric sclerae and PERRL ENMT: external ear and nose normal, oropharynx normal Neck: trachea midline, no thyromegaly Respiratory: normal respiratory effort, lungs clear to auscultation Cardiovascular: RRR, no murmur, no edema Gastrointestinal (Abdomen): normal bowel sounds, soft, nontender, no hepatosplenomegaly Musculoskeletal: no cyanosis or clubbing, extremities motor strength 5/5 Skin: no rashes, warm and dry Neurologic: PERRL, EOMI, accommodation nl, no face palsy, no dysarthria negative Kernig/Brudzinski Psychiatric: A+Ox3, euthymic affect Lymphatic: no cervical or axillary lymphadenopathy Results & Data Results & Data ([facility]) Vital Signs (Past 12 Hours) Vital Signs Temp Pulse Resp BP Pulse Ox 09/04/19 08:04 36.5 C 76 18 125/81 98 09/04/19 04:11 36.4 C L 76 15 136/90 97 Laboratory Results 09/04/19 09/04/19 09/04/19 Range/Units 17:23 16:00 13:45 WBC (4.8-10.8) K/uL RBC (4.2-5.4) M/uL Hgb (12.0-16.0) g/dL Hct (37-47) % MCV (80-100) fL MCH (25-34) pg MCHC (32-36) g/dL RDW Std Deviation (36.4-46.3) fL RDW Coeff of Leo (11.5-14.5) % Plt Count (130-400) K/uL MPV (7.4-10.4) fL Sodium (136-145) mmol/L Potassium (3.5-5.1) mmol/L Chloride (98-107) mmol/L Carbon Dioxide (21-32) mmol/L Anion Gap (3-11) BUN (7-18) mg/dl Creatinine (0.6-1.2) mg/dl Est Cr Clr Drug Dosing ml/min Est GFR ( Amer) Est GFR (Non-Af Amer) BUN/Creatinine Ratio (10-20) Glucose (70-99) mg/dl POC Glucose 117 H (70-99) mg/dl Estimat Average Glucose mg/dl Hemoglobin A1c (4.5-5.6) % Calcium (8.5-10.1) mg/dl Magnesium (1.8-2.4) mg/dl Urine Color Urine Appearance (Clear) Urine pH (4.5-7.5) Ur Specific [place] (1.000-1.030) Urine Protein (Negative) Urine Glucose (UA) (Negative) Urine Ketones (Negative) Urine Blood (Negative) Urine Nitrite (Negative) Urine Bilirubin (Negative) Urine Urobilinogen (Negative) Ur Leukocyte Esterase (Negative) Urine WBC (Auto) (0-5) /hpf Urine RBC (Auto) (0-4) /hpf U Hyaline Cast (Auto) (0-5) /lpf U Epithel Cells (Auto) (0-5) /lpf Urine Bacteria (Auto) (Negative) CSF Appearance CSF Color Xanthrochromic CSF WBC (0-5) /uL CSF RBC (0-) /uL CSF Cell Count Tube # CSF Chemistry Tube # CSF Glucose (40-70) mg/dl CSF Total Protein (15-45) mg/dl CSF C.neoform/gat PCR (NotDetected) CSF CMV DNA (PCR) (NotDetected) CSF Enterovirus (PCR) (NotDetected) CSF E. coli K1 (PCR) (NotDetected) CSF H. influenzae (PCR) (NotDetected) CSF HSV I (PCR) (NotDetected) CSF HSV II (PCR) (NotDetected) CSF HHV 6 (PCR) (NotDetected) CSF L.monocytogenes PCR (NotDetected) CSF N. meningitidis PCR (NotDetected) CSF Parechovirus (PCR) (NotDetected) CSF S. agalactiae (PCR) (NotDetected) CSF S. pneumoniae (PCR) (NotDetected) CSF VZV DNA (PCR) (NotDetected) Vancomycin Trough 14.0 (See Comment) mcg/ml SARS-CoV-2 RNA (RT-PCR) Pending 09/04/19 09/04/19 09/04/19 Range/Units 13:00 12:16 08:11 WBC (4.8-10.8) K/uL RBC (4.2-5.4) M/uL Hgb (12.0-16.0) g/dL Hct (37-47) % MCV (80-100) fL MCH (25-34) pg MCHC (32-36) g/dL RDW Std Deviation (36.4-46.3) fL RDW Coeff of Leo (11.5-14.5) % Plt Count (130-400) K/uL MPV (7.4-10.4) fL Sodium (136-145) mmol/L Potassium (3.5-5.1) mmol/L Chloride (98-107) mmol/L Carbon Dioxide (21-32) mmol/L Anion Gap (3-11) BUN (7-18) mg/dl Creatinine (0.6-1.2) mg/dl Est Cr Clr Drug Dosing ml/min Est GFR ( Amer) Est GFR (Non-Af Amer) BUN/Creatinine Ratio (10-20) Glucose (70-99) mg/dl POC Glucose 161 H 146 H (70-99) mg/dl Estimat Average Glucose mg/dl Hemoglobin A1c (4.5-5.6) % Calcium (8.5-10.1) mg/dl Magnesium (1.8-2.4) mg/dl Urine Color Dark Yellow Urine Appearance Cloudy A (Clear) Urine pH 6.5 (4.5-7.5) Ur Specific [place] 1.038 H (1.000-1.030) Urine Protein 1+ H (Negative) Urine Glucose (UA) Trace H (Negative) Urine Ketones 1+ H (Negative) Urine Blood Trace H (Negative) Urine Nitrite Negative (Negative) Urine Bilirubin Negative (Negative) Urine Urobilinogen Positive H (Negative) Ur Leukocyte Esterase 1+ H (Negative) Urine WBC (Auto) >30 H (0-5) /hpf Urine RBC (Auto) 10-30 H (0-4) /hpf U Hyaline Cast (Auto) 5-10 H (0-5) /lpf U Epithel Cells (Auto) 20-30 H (0-5) /lpf Urine Bacteria (Auto) Negative (Negative) CSF Appearance CSF Color Xanthrochromic CSF WBC (0-5) /uL CSF RBC (0-) /uL CSF Cell Count Tube # CSF Chemistry Tube # CSF Glucose (40-70) mg/dl CSF Total Protein (15-45) mg/dl CSF C.neoform/gat PCR (NotDetected) CSF CMV DNA (PCR) (NotDetected) CSF Enterovirus (PCR) (NotDetected) CSF E. coli K1 (PCR) (NotDetected) CSF H. influenzae (PCR) (NotDetected) CSF HSV I (PCR) (NotDetected) CSF HSV II (PCR) (NotDetected) CSF HHV 6 (PCR) (NotDetected) CSF L.monocytogenes PCR (NotDetected) CSF N. meningitidis PCR (NotDetected) CSF Parechovirus (PCR) (NotDetected) CSF S. agalactiae (PCR) (NotDetected) CSF S. pneumoniae (PCR) (NotDetected) CSF VZV DNA (PCR) (NotDetected) Vancomycin Trough (See Comment) mcg/ml SARS-CoV-2 RNA (RT-PCR) 09/04/19 09/04/19 09/04/19 Range/Units 05:32 05:32 05:32 WBC 11.08 H (4.8-10.8) K/uL RBC 4.24 (4.2-5.4) M/uL Hgb 14.0 (12.0-16.0) g/dL Hct 40.7 (37-47) % MCV 96.0 (80-100) fL MCH 33.0 (25-34) pg MCHC 34.4 (32-36) g/dL RDW Std Deviation 44.2 (36.4-46.3) fL RDW Coeff of Leo 12.7 (11.5-14.5) % Plt Count 254 (130-400) K/uL MPV 10.7 H (7.4-10.4) fL Sodium 140 (136-145) mmol/L Potassium 4.1 D (3.5-5.1) mmol/L Chloride 109 H (98-107) mmol/L Carbon Dioxide 25 (21-32) mmol/L Anion Gap 7.0 (3-11) BUN 26 H (7-18) mg/dl Creatinine 0.74 (0.6-1.2) mg/dl Est Cr Clr Drug Dosing 107.8 ml/min Est GFR ( Amer) 106.5 Est GFR (Non-Af Amer) 91.8 BUN/Creatinine Ratio 35.0 H (10-20) Glucose 162 H (70-99) mg/dl POC Glucose (70-99) mg/dl Estimat Average Glucose 120 mg/dl Hemoglobin A1c 5.8 H (4.5-5.6) % Calcium 9.1 (8.5-10.1) mg/dl Magnesium 2.3 (1.8-2.4) mg/dl Urine Color Urine Appearance (Clear) Urine pH (4.5-7.5) Ur Specific [place] (1.000-1.030) Urine Protein (Negative) Urine Glucose (UA) (Negative) Urine Ketones (Negative) Urine Blood (Negative) Urine Nitrite (Negative) Urine Bilirubin (Negative) Urine Urobilinogen (Negative) Ur Leukocyte Esterase (Negative) Urine WBC (Auto) (0-5) /hpf Urine RBC (Auto) (0-4) /hpf U Hyaline Cast (Auto) (0-5) /lpf U Epithel Cells (Auto) (0-5) /lpf Urine Bacteria (Auto) (Negative) CSF Appearance CSF Color Xanthrochromic CSF WBC (0-5) /uL CSF RBC (0-) /uL CSF Cell Count Tube # CSF Chemistry Tube # CSF Glucose (40-70) mg/dl CSF Total Protein (15-45) mg/dl CSF C.neoform/gat PCR (NotDetected) CSF CMV DNA (PCR) (NotDetected) CSF Enterovirus (PCR) (NotDetected) CSF E. coli K1 (PCR) (NotDetected) CSF H. influenzae (PCR) (NotDetected) CSF HSV I (PCR) (NotDetected) CSF HSV II (PCR) (NotDetected) CSF HHV 6 (PCR) (NotDetected) CSF L.monocytogenes PCR (NotDetected) CSF N. meningitidis PCR (NotDetected) CSF Parechovirus (PCR) (NotDetected) CSF S. agalactiae (PCR) (NotDetected) CSF S. pneumoniae (PCR) (NotDetected) CSF VZV DNA (PCR) (NotDetected) Vancomycin Trough (See Comment) mcg/ml SARS-CoV-2 RNA (RT-PCR) 09/04/19 09/03/19 09/03/19 Range/Units 04:01 21:28 17:36 WBC (4.8-10.8) K/uL RBC (4.2-5.4) M/uL Hgb (12.0-16.0) g/dL Hct (37-47) % MCV (80-100) fL MCH (25-34) pg MCHC (32-36) g/dL RDW Std Deviation (36.4-46.3) fL RDW Coeff of Leo (11.5-14.5) % Plt Count (130-400) K/uL MPV (7.4-10.4) fL Sodium (136-145) mmol/L Potassium (3.5-5.1) mmol/L Chloride (98-107) mmol/L Carbon Dioxide (21-32) mmol/L Anion Gap (3-11) BUN (7-18) mg/dl Creatinine (0.6-1.2) mg/dl Est Cr Clr Drug Dosing ml/min Est GFR ( Amer) Est GFR (Non-Af Amer) BUN/Creatinine Ratio (10-20) Glucose (70-99) mg/dl POC Glucose 163 H 157 H (70-99) mg/dl Estimat Average Glucose mg/dl Hemoglobin A1c (4.5-5.6) % Calcium (8.5-10.1) mg/dl Magnesium (1.8-2.4) mg/dl Urine Color Urine Appearance (Clear) Urine pH (4.5-7.5) Ur Specific [place] (1.000-1.030) Urine Protein (Negative) Urine Glucose (UA) (Negative) Urine Ketones (Negative) Urine Blood (Negative) Urine Nitrite (Negative) Urine Bilirubin (Negative) Urine Urobilinogen (Negative) Ur Leukocyte Esterase (Negative) Urine WBC (Auto) (0-5) /hpf Urine RBC (Auto) (0-4) /hpf U Hyaline Cast (Auto) (0-5) /lpf U Epithel Cells (Auto) (0-5) /lpf Urine Bacteria (Auto) (Negative) CSF Appearance CSF Color Xanthrochromic CSF WBC (0-5) /uL CSF RBC (0-) /uL CSF Cell Count Tube # CSF Chemistry Tube # CSF Glucose (40-70) mg/dl CSF Total Protein (15-45) mg/dl CSF C.neoform/gat PCR Not Detected (NotDetected) CSF CMV DNA (PCR) Not Detected (NotDetected) CSF Enterovirus (PCR) Not Detected (NotDetected) CSF E. coli K1 (PCR) Not Detected (NotDetected) CSF H. influenzae (PCR) Not Detected (NotDetected) CSF HSV I (PCR) Not Detected (NotDetected) CSF HSV II (PCR) Not Detected (NotDetected) CSF HHV 6 (PCR) Not Detected (NotDetected) CSF L.monocytogenes PCR Not Detected (NotDetected) CSF N. meningitidis PCR Not Detected (NotDetected) CSF Parechovirus (PCR) Not Detected (NotDetected) CSF S. agalactiae (PCR) Not Detected (NotDetected) CSF S. pneumoniae (PCR) Not Detected (NotDetected) CSF VZV DNA (PCR) Not Detected (NotDetected) Vancomycin Trough (See Comment) mcg/ml SARS-CoV-2 RNA (RT-PCR) 09/03/19 Range/Units 17:30 WBC (4.8-10.8) K/uL RBC (4.2-5.4) M/uL Hgb (12.0-16.0) g/dL Hct (37-47) % MCV (80-100) fL MCH (25-34) pg MCHC (32-36) g/dL RDW Std Deviation (36.4-46.3) fL RDW Coeff of Leo (11.5-14.5) % Plt Count (130-400) K/uL MPV (7.4-10.4) fL Sodium (136-145) mmol/L Potassium (3.5-5.1) mmol/L Chloride (98-107) mmol/L Carbon Dioxide (21-32) mmol/L Anion Gap (3-11) BUN (7-18) mg/dl Creatinine (0.6-1.2) mg/dl Est Cr Clr Drug Dosing ml/min Est GFR ( Amer) Est GFR (Non-Af Amer) BUN/Creatinine Ratio (10-20) Glucose (70-99) mg/dl POC Glucose (70-99) mg/dl Estimat Average Glucose mg/dl Hemoglobin A1c (4.5-5.6) % Calcium (8.5-10.1) mg/dl Magnesium (1.8-2.4) mg/dl Urine Color Urine Appearance (Clear) Urine pH (4.5-7.5) Ur Specific [place] (1.000-1.030) Urine Protein (Negative) Urine Glucose (UA) (Negative) Urine Ketones (Negative) Urine Blood (Negative) Urine Nitrite (Negative) Urine Bilirubin (Negative) Urine Urobilinogen (Negative) Ur Leukocyte Esterase (Negative) Urine WBC (Auto) (0-5) /hpf Urine RBC (Auto) (0-4) /hpf U Hyaline Cast (Auto) (0-5) /lpf U Epithel Cells (Auto) (0-5) /lpf Urine Bacteria (Auto) (Negative) CSF Appearance Clear CSF Color Colorless Xanthrochromic No xanthochromia CSF WBC 18 H* (0-5) /uL CSF RBC 2 (0-) /uL CSF Cell Count Tube # 3 CSF Chemistry Tube # 1 CSF Glucose 71 H (40-70) mg/dl CSF Total Protein 35.1 (15-45) mg/dl CSF C.neoform/gat PCR (NotDetected) CSF CMV DNA (PCR) (NotDetected) CSF Enterovirus (PCR) (NotDetected) CSF E. coli K1 (PCR) (NotDetected) CSF H. influenzae (PCR) (NotDetected) CSF HSV I (PCR) (NotDetected) CSF HSV II (PCR) (NotDetected) CSF HHV 6 (PCR) (NotDetected) CSF L.monocytogenes PCR (NotDetected) CSF N. meningitidis PCR (NotDetected) CSF Parechovirus (PCR) (NotDetected) CSF S. agalactiae (PCR) (NotDetected) CSF S. pneumoniae (PCR) (NotDetected) CSF VZV DNA (PCR) (NotDetected) Vancomycin Trough (See Comment) mcg/ml SARS-CoV-2 RNA (RT-PCR) PG Care Time/CCT Total # of Minutes Spent Total Time Spent with Patient: Total time spent is greater than 50% in coordination of care (as documented) at patient's floor/unit and/or counseling patient: Coding Level of Care Code 45195 Subseq Hosp Care Lvl 3 Diagnoses Meningitis G03.9 Lumbar stenosis M48.061 Diabetes E11.9 Hypertension I10 Hypokalemia E87.6 Hypothyroidism E03.9 UTI (urinary tract infection) N39.0 DVT prophylaxis Z29.9
[2019-09-04 13:30] LABS: Appearance Urine Cloudy (Clear); Bacteria Urine Automated Negative (Negative); Blood Urine Trace (Negative); Color Urine Dark Yellow; Epithelial Cell Urine Auto 20-30 /lpf (0-5); Glucose Urine UA Trace (Negative); Ketones Urine 1+ (Negative); Leukocyte Esterase Urine 1+ (Negative); Nitrite Urine Negative (Negative); Protein Urine 1+ (Negative); Specific Gravity Urine 1.038 (1.000-1.030); Urobilinogen Urine Positive (Negative); WBC Urine Automated >30 /hpf (0-5); pH Urine 6.5 (4.5-7.5)
[2019-09-04 13:43] LABS: Bilirubin Urine Negative (Negative); Ictotest Urine Negative (Negative)
[2019-09-04] MEDS ORDERED: VANCOMYCIN TROUGH ONE (15:30)
--- NOTE | 2019-09-04 17:00 | Pharmacy Report ---
Pharmacy Abx Dose Short Note - Date of Service September 04, 2019 - Assessment & Plan Assessment 54 year old F receiving vancomycin, Rocephin, and acyclovir for treatment of meningitis Day # 2 of antimicrobial therapy. Plan Vancomycin * Trough level of 14 mcg/mL is almost therapeutic --- expect accumulation due to body habitus. * Change to 1500 mg IV every 12 hours * Goal trough level for meningitis: 15 to 20 mcg/mL * Trough ordered for: 09/06/19 Pharmacy will continue to follow and will adjust dose/frequency as necessary. Thank you.
[2019-09-04] MEDS: ACETAMINOPHEN 325 MG TAB PO PRN (18:09)
[2019-09-04] MEDS: hydroCHLOROthiazide 25 MG TAB PO SCH (19:17)
[2019-09-04] MEDS ORDERED: ZOLPIDEM TARTRATE 5 MG TAB PO ONE (22:20)
[2019-09-05] MEDS: AMPICILLIN 2,000 MG in SODIUM CHLOR 0.9% AD-VAN 100 ML IV SCH ×2 (04:06→08:56)
[2019-09-05] MEDS: cefTRIAXone SODIUM 2,000 MG in DEXTROSE 5% 50 ML IV SCH (04:48)
[2019-09-05] MEDS ORDERED: VANCOMYCIN HCL 1,500 MG in SODIUM CHLORIDE 0.9% 500 ML IV SCH (05:00)
[2019-09-05] MEDS: LEVOTHYROXINE SODIUM 25 MCG TABLET PO SCH (05:39)
[2019-09-05 07:44] LABS: Alanine Aminotransferase 47 U/L (12-78); Albumin Level 2.4 gm/dl (3.4-5.0); Aspartate Aminotransferase 34 U/L (15-37); BUN Creatinine Ratio 29.7 (10-20); Bilirubin Direct < 0.1 mg/dl (0-0.2); Blood Urea Nitrogen 22 mg/dl (7-18); Calcium 8.6 mg/dl (8.5-10.1); Carbon Dioxide 25 mmol/L (21-32); Chloride 110 mmol/L (98-107); Creatinine Clr Calc Pharmacy 106.4 ml/min; Est GFR (African American) 104.7; Est GFR (Non-African American) 90.4; Glucose 92 mg/dl (70-99); Potassium 3.2 mmol/L (3.5-5.1); Sodium 141 mmol/L (136-145)
[2019-09-05 07:58] LABS: Alkaline Phosphatase 64 U/L (45-117); Bilirubin,Total 0.3 mg/dl (0.2-1); Total Protein 6.2 gm/dl (6.4-8.2)
[2019-09-05 08:16] LABS: Hepatitis B Surface Antigen Neg (Neg)
[2019-09-05 08:19] LABS: Hematocrit (blood only) 35.9 % (37-47); Hemoglobin 12.4 g/dL (12.0-16.0); Mean Corpuscular Hemoglobin 33.2 pg (25-34); Mean Corpuscular Hgb Conc 34.5 g/dL (32-36); Mean Corpuscular Volume 96.2 fL (80-100); Mean Platelet Volume 10.6 fL (7.4-10.4); Platelet Count 260 K/uL (130-400); RDW Coefficient of Variation 12.9 % (11.5-14.5); RDW Standard Deviation 45.4 fL (36.4-46.3); Red Blood Count 3.73 M/uL (4.2-5.4); White Blood Count 10.12 K/uL (4.8-10.8)
[2019-09-05] MEDS ORDERED: POTASSIUM CHLORIDE 20 MEQ TABCR PO STA (08:36)
[2019-09-05 08:45] LABS: Hepatitis C IgG 13Yrs+Old_Rflx Neg (Neg)
[2019-09-05] MEDS: NAPROXEN 375 MG TAB PO SCH ×2 (08:54→20:44)
[2019-09-05] MEDS: GABAPENTIN 300 MG CAP PO SCH (08:54)
[2019-09-05] MEDS: hydroCHLOROthiazide 25 MG TAB PO SCH (08:54)
[2019-09-05] MEDS: NSS + 20MEQ KCL 20 MEQ/1,000 ML BAG IV SCH (08:56)
[2019-09-05] MEDS: INSULIN ASPART 100 UNITS/ML 3 ML PEN SC SCH ×4 (09:55→20:51)
--- NOTE | 2019-09-05 10:22 | Hospitalist Progress Note ---
Date of Service September 05, 2019 Assessment & Plan (1) Meningitis: RULED OUT * Patient came to the emergency department with headache,neck pain, fevers at home, leukocytosis and vomiting * Lumbar puncture abnormal with elevated white count. Mildly elevated protein concern for meningitis was undertaken cultures were sent patient was initiated on Rocephin ampicillin vancomycin and dexamethasone in ER. * CSF Gram Stain without WBC or organisms seen/Culture NO GROWTH - FINAL * Of note, patient did receive dexamethasone prior to antibiotic administration and this could contribute to elevated WBCs in CSF on initial labs * --> discontinued Ampicillin, Vancomycin, Acyclovir (biofire, Lyme CSF negat katelyn) * Continue rocephin for now in case of [employer] disease, but switched to 2gm daily Urine culture with pin-point growth, re-incubating --> follow * COVID pending -- was send out (2) Lumbar stenosis: * Patient with history of chronic pain lumbar spinal stenosis s/p surgical repair * Continue home gabapentin but changed to 300mg QAM and 600mg HS as that is how she takes at home and helps her get better sleep * Added tylenol, morphine prn (3) Diabetes: * A1c 5.8 * Patient on Trulicity 1.5mg SQ weekly and Metformin 500mg PO daily * BSG ac/hs * ISS while inpatient * BSGs acceptable * Continue to monitor (4) Hypertension: * Chronic. Had episode 151/101 evening 09/03 * Resumed HCTZ, however patient now again with hypokalemia, K 3.2 * --> will switch to lisinopril 5mg QAM. Patient also with DM and should be on MATHIEU/ARB * BP currently 135/74 (5) Hypokalemia: * Markedly low K on admission at 2.8 --> given oral and IVF replacement. Mag 2.3. Had resolved * K 3.2 on AM labs --> given 40MEQ PO (of note, resumed her HCTZ 09/03) --> may ne ed to be on PO supplementation outpatient but will switch to lisinopril and repeat labs in AM * Repeat in AM (6) Hypothyroidism: * Chronic. Last TSH 10/31/18 1.65--> currently 4.5, upper limit of normal but in setting of acute illness * Continue home levothyroxine 25mcg PO daily * Rec repeat TFT in 6-8 weeks outpatient and possibly need to increase dose of levothyroxine (7) UTI (urinary tract infection): * Patient with reported hematuria/dysuria and typically asymptomatic with previous UTIs * UA obtained -- 1+ leuk esterase, >30 WBC, 10-30 RBC, trace blood, 1+ protein, trace glucose, 1+ ketones, negative bacteria * Follow cultures --> already on rocephin/ampicillin/vanc as above and now just Rocephin * Initial cultures without growth however re-incubating --> follow * Hepatitis panel -- Bs antigen, C antibody negative. others pending * LFTs on AM labs wnl (8) Hematuria: * Family hx renal ca (mother in her 60s) --> blood on UA. No evidence of stones. No CVA tenderness on exam * Ordered Renal US -- not to be done until after covid resulted * Will check urine cytology but will need further work-up outpatient (9) DVT prophylaxis: * SCDs will be employed for DVT prevention given recent lumbar puncture Dispo: awaiting COVID results. Possible discharge tomorrow. Admission and Anticipated Discharge Date Admission Date: September 03, 2019 Supervising Physician Co-Signing Physician Notes PA Supervision Note: I did not personally see or examine the patient today, but I verified all choudhury points of SWATHI Anderson's assessment and plan with the following exceptions/additions: None Subjective Patient evaluated this morning. Headache resolved. Still with urinary frequency and dysuria as well as hematuria. Denies any itching or discharge. Minimal improvement with Pyridium as she has utilized this in the past with UTI. No further n/v. One bowel movement, no further diarrhea. Denies abdominal pain. Denies back pain outside of her typical stenosis type pain. Did not get much sleep last night and would like gabapentin dosing changed as she takes this 300mg in the morning and 600mg in the evening. Currently denies chest pain, shortness of breath, abdominal pain at this time. Denies visual changes or neck pain. She states she thought maybe her sugars were running high at home prior to admission because she has a son with DM I and thought she had been having symptoms similar to when he had been in DKA. Sugars have been controlled while inpatient. Of note, she states her mother was diagnosed with renal carcinoma in her sixties and does have some concerns that her hematuria may have been from this. No history of stones. History of hysterectomy for heavy bleeding, but does have ovaries/cervix. She states that she has had a 40lb weight loss in the past 4 months since starting Trulicity and has noticed early satiety as well. Discussed obtaining US but unfortunately will await results of COVID testing prior to going down for testing. Questions/concerns addressed at this time. Review of Systems Review of Systems: All systems reviewed & are unremarkable except as noted in HPI & below Physical Exam Constitutional: WD/WN, vitals as above + obese; no acute distress Eyes: + anicteric sclerae and PERRL ENMT: external ear and nose normal, oropharynx normal Neck: trachea midline, no thyromegaly Respiratory: normal respiratory effort, lungs clear to auscultation Cardiovascular: RRR, no murmur, no edema Gastrointestinal (Abdomen): normal bowel sounds, soft, nontender, no hepatosplenomegaly Musculoskeletal: no cyanosis or clubbing, extremities motor strength 5/5 Skin: no rashes, warm and dry Neurologic: PERRL, EOMI, accommodation nl, no face palsy, no dysarthria Psychiatric: A+Ox3, euthymic affect Genitourinary: no CVA tenderness Lymphatic: no cervical or axillary lymphadenopathy Results & Data Results & Data ([facility]) Vital Signs (Past 12 Hours) Vital Signs Temp Pulse Resp BP Pulse Ox 09/05/19 09:10 36.6 C 83 16 127/83 99 09/04/19 23:26 36.8 C 74 16 129/84 96 Laboratory Results 09/05/19 09/05/19 09/05/19 Range/Units 13:33 08:50 06:40 WBC (4.8-10.8) K/uL RBC (4.2-5.4) M/uL Hgb (12.0-16.0) g/dL Hct (37-47) % MCV (80-100) fL MCH (25-34) pg MCHC (32-36) g/dL RDW Std Deviation (36.4-46.3) fL RDW Coeff of Leo (11.5-14.5) % Plt Count (130-400) K/uL MPV (7.4-10.4) fL Sodium (136-145) mmol/L Potassium (3.5-5.1) mmol/L Chloride (98-107) mmol/L Carbon Dioxide (21-32) mmol/L Anion Gap (3-11) BUN (7-18) mg/dl Creatinine (0.6-1.2) mg/dl Est Cr Clr Drug Dosing ml/min Est GFR ( Amer) Est GFR (Non-Af Amer) BUN/Creatinine Ratio (10-20) Glucose (70-99) mg/dl POC Glucose 109 H 75 (70-99) mg/dl Calcium (8.5-10.1) mg/dl Total Bilirubin (0.2-1) mg/dl Direct Bilirubin (0-0.2) mg/dl AST (15-37) U/L ALT (12-78) U/L Alkaline Phosphatase (45-117) U/L Total Protein (6.4-8.2) gm/dl Albumin (3.4-5.0) gm/dl TSH (0.300-4.500) uIu/ml Fld Lyme DNA (PCR) (Not Detected) Vancomycin Trough (See Comment) mcg/ml Lyme Specimen Source Hepatitis A IgM Ab Pending Hep Bs Antigen (Neg) Hep B Core IgM Ab Pending Hepatitis C Antibody (Neg) 09/05/19 09/05/19 09/05/19 Range/Units 06:40 06:40 06:40 WBC 10.12 (4.8-10.8) K/uL RBC 3.73 L (4.2-5.4) M/uL Hgb 12.4 (12.0-16.0) g/dL Hct 35.9 L (37-47) % MCV 96.2 (80-100) fL MCH 33.2 (25-34) pg MCHC 34.5 (32-36) g/dL RDW Std Deviation 45.4 (36.4-46.3) fL RDW Coeff of Leo 12.9 (11.5-14.5) % Plt Count 260 (130-400) K/uL MPV 10.6 H (7.4-10.4) fL Sodium 141 (136-145) mmol/L Potassium 3.2 L D (3.5-5.1) mmol/L Chloride 110 H (98-107) mmol/L Carbon Dioxide 25 (21-32) mmol/L Anion Gap 6.0 (3-11) BUN 22 H (7-18) mg/dl Creatinine 0.75 (0.6-1.2) mg/dl Est Cr Clr Drug Dosing 106.4 ml/min Est GFR ( Amer) 104.7 Est GFR (Non-Af Amer) 90.4 BUN/Creatinine Ratio 29.7 H (10-20) Glucose 92 (70-99) mg/dl POC Glucose (70-99) mg/dl Calcium 8.6 (8.5-10.1) mg/dl Total Bilirubin 0.3 (0.2-1) mg/dl Direct Bilirubin < 0.1 (0-0.2) mg/dl AST 34 (15-37) U/L ALT 47 (12-78) U/L Alkaline Phosphatase 64 (45-117) U/L Total Protein 6.2 L (6.4-8.2) gm/dl Albumin 2.4 L (3.4-5.0) gm/dl TSH 4.500 (0.300-4.500) uIu/ml Fld Lyme DNA (PCR) (Not Detected) Vancomycin Trough (See Comment) mcg/ml Lyme Specimen Source Hepatitis A IgM Ab Hep Bs Antigen Neg (Neg) Hep B Core IgM Ab Hepatitis C Antibody Neg (Neg) 09/04/19 09/04/19 09/04/19 Range/Units 20:49 17:23 16:00 WBC (4.8-10.8) K/uL RBC (4.2-5.4) M/uL Hgb (12.0-16.0) g/dL Hct (37-47) % MCV (80-100) fL MCH (25-34) pg MCHC (32-36) g/dL RDW Std Deviation (36.4-46.3) fL RDW Coeff of Leo (11.5-14.5) % Plt Count (130-400) K/uL MPV (7.4-10.4) fL Sodium (136-145) mmol/L Potassium (3.5-5.1) mmol/L Chloride (98-107) mmol/L Carbon Dioxide (21-32) mmol/L Anion Gap (3-11) BUN (7-18) mg/dl Creatinine (0.6-1.2) mg/dl Est Cr Clr Drug Dosing ml/min Est GFR ( Amer) Est GFR (Non-Af Amer) BUN/Creatinine Ratio (10-20) Glucose (70-99) mg/dl POC Glucose 132 H 117 H (70-99) mg/dl Calcium (8.5-10.1) mg/dl Total Bilirubin (0.2-1) mg/dl Direct Bilirubin (0-0.2) mg/dl AST (15-37) U/L ALT (12-78) U/L Alkaline Phosphatase (45-117) U/L Total Protein (6.4-8.2) gm/dl Albumin (3.4-5.0) gm/dl TSH (0.300-4.500) uIu/ml Fld Lyme DNA (PCR) (Not Detected) Vancomycin Trough 14.0 (See Comment) mcg/ml Lyme Specimen Source Hepatitis A IgM Ab Hep Bs Antigen (Neg) Hep B Core IgM Ab Hepatitis C Antibody (Neg) 09/03/19 Range/Units 17:30 WBC (4.8-10.8) K/uL RBC (4.2-5.4) M/uL Hgb (12.0-16.0) g/dL Hct (37-47) % MCV (80-100) fL MCH (25-34) pg MCHC (32-36) g/dL RDW Std Deviation (36.4-46.3) fL RDW Coeff of Leo (11.5-14.5) % Plt Count (130-400) K/uL MPV (7.4-10.4) fL Sodium (136-145) mmol/L Potassium (3.5-5.1) mmol/L Chloride (98-107) mmol/L Carbon Dioxide (21-32) mmol/L Anion Gap (3-11) BUN (7-18) mg/dl Creatinine (0.6-1.2) mg/dl Est Cr Clr Drug Dosing ml/min Est GFR ( Amer) Est GFR (Non-Af Amer) BUN/Creatinine Ratio (10-20) Glucose (70-99) mg/dl POC Glucose (70-99) mg/dl Calcium (8.5-10.1) mg/dl Total Bilirubin (0.2-1) mg/dl Direct Bilirubin (0-0.2) mg/dl AST (15-37) U/L ALT (12-78) U/L Alkaline Phosphatase (45-117) U/L Total Protein (6.4-8.2) gm/dl Albumin (3.4-5.0) gm/dl TSH (0.300-4.500) uIu/ml Fld Lyme DNA (PCR) Not detected (Not Detected) Vancomycin Trough (See Comment) mcg/ml Lyme Specimen Source CSF Hepatitis A IgM Ab Hep Bs Antigen (Neg) Hep B Core IgM Ab Hepatitis C Antibody (Neg) PG Care Time/CCT Total # of Minutes Spent Total Time Spent with Patient: Total time spent is greater than 50% in coordination of care (as documented) at patient's floor/unit and/or counseling patient: Coding Level of Care Code 21483 Subseq Hosp Care Lvl 3 Diagnoses Meningitis G03.9 Lumbar stenosis M48.061 Diabetes E11.9 Hypertension I10 Hypokalemia E87.6 Hypothyroidism E03.9 UTI (urinary tract infection) N39.0 Hematuria R31.9 DVT prophylaxis Z29.9
[2019-09-05] MEDS: ACETAMINOPHEN 325 MG TAB PO PRN ×2 (10:24→18:30)
[2019-09-05] MEDS: PHENAZOPYRIDINE HCL 100 MG TAB PO PRN ×2 (11:15→20:45)
--- NOTE | 2019-09-05 14:12 | Pharmacy Report ---
Pharmacy Glycemic Short Note 2 - Date of Service September 05, 2019 - Glycemic Short BSG Results (Last 24 hours): 09/04/19 09/04/19 09/05/19 17:23 20:49 06:40 Glucose 92 POC Glucose 117 H 132 H 09/05/19 09/05/19 08:50 13:33 Glucose POC Glucose 75 109 H OUTPATIENT ANTIDIABETIC REGIMEN: * Metformin 500mg daily * Trulicity 1.5mg weekly * HbA1c: 5.8% (09/04/19) ASSESSMENT: 09/04: * Katrin has demonstrated excellent glycemic control over the past 24 hours * No further basal insulin will be given today per fasting BSG was 75 mg/dL * Post prandial BSGs at/near goal. May need to loosen Novolog CF/CR moving forward. 09/03: * Ms Quinones was admitted yesterday with suspicion of meningitis. * Pt received 10mg IV dexamethasone yesterday, which is expected to contribute to significant steroid-induced hyperglycemia. * NPH was given last evening and again this morning, to help cover DXM. * Novolog parameters loosened slightly this morning, as insulin requirements are expected to lessen as DXM wears off. PLAN FOR INPATIENT GLYCEMIC CONTROL: * Hold outpatient oral diabetes medications * Basal insulin * none today * Bolus insulin * NovoLog per scale ACHS or Q6hrs while NPO * Goal Range: Low 110 mg/dL - High 140 mg/dL * Correction Factor: 20 mg/dL/unit * Nutritional / Prandial insulin per carb ratio of 1 unit per 7 grams CHO consumed PLAN FOR DISCHARGE: * Patient's A1c (5.8%) indicates great glycemic control as an outpatient. * Expect that pt may resume home regimen on discharge, as long as she does not report having episodes of hypoglycemia.
[2019-09-05 14:44] LABS: Lyme DNA PCR CSF or Synovial Not detected (Not Detected); Lyme DNA Source CSF
[2019-09-05] MEDS: lisinopriL 5 MG TAB PO SCH (17:46)
[2019-09-05] MEDS ORDERED: POLYETHYLENE (MIRALAX) 17 GM PACK PO PRN (19:11)
[2019-09-05] MEDS: GABAPENTIN 600 MG TAB PO SCH (20:44)
[2019-09-05] MEDS ORDERED: ZOLPIDEM TARTRATE 5 MG TAB PO PRN (20:51)
[2019-09-06] MEDS: ACETAMINOPHEN 325 MG TAB PO PRN ×2 (00:12→19:08)
[2019-09-06] MEDS ORDERED: VANCOMYCIN TROUGH ONE (04:30)
[2019-09-06 05:15] LABS: Hepatitis A Antibody IgM NON-REACTIVE (NON-REACTIVE); Hepatitis B Core Antibody IgM NON-REACTIVE (NON-REACTIVE)
[2019-09-06] MEDS: cefTRIAXone SODIUM 2,000 MG in DEXTROSE 5% 50 ML IV SCH (05:15)
[2019-09-06] MEDS: LEVOTHYROXINE SODIUM 25 MCG TABLET PO SCH (05:16)
[2019-09-06] MEDS: lisinopriL 5 MG TAB PO SCH (08:30)
[2019-09-06] MEDS: PHENAZOPYRIDINE HCL 100 MG TAB PO PRN (08:30)
[2019-09-06] MEDS: NAPROXEN 375 MG TAB PO SCH ×2 (08:30→20:26)
[2019-09-06] MEDS: GABAPENTIN 300 MG CAP PO SCH (08:37)
[2019-09-06] MEDS: INSULIN ASPART 100 UNITS/ML 3 ML PEN SC SCH ×4 (08:40→21:04)
[2019-09-06 09:14] LABS: Hemoglobin 12.7 g/dL (12.0-16.0); Mean Corpuscular Hemoglobin 32.3 pg (25-34); Mean Corpuscular Hgb Conc 32.6 g/dL (32-36); Mean Corpuscular Volume 99.2 fL (80-100); Platelet Count 268 K/uL (130-400); RDW Standard Deviation 47.6 fL (36.4-46.3); Red Blood Count 3.93 M/uL (4.2-5.4)
[2019-09-06 09:46] LABS: BUN Creatinine Ratio 19.3 (10-20); Calcium 8.8 mg/dl (8.5-10.1); Creatinine Clr Calc Pharmacy 122.7 ml/min; Est GFR (African American) 116.7; Est GFR (Non-African American) 100.7; Potassium 3.4 mmol/L (3.5-5.1)
--- NOTE | 2019-09-06 10:29 | Pharmacy Report ---
Pharmacy Glycemic Short Note 2 - Date of Service September 06, 2019 - Glycemic Short BSG Results (Last 24 hours): 09/05/19 09/05/19 09/05/19 13:33 17:44 20:33 Glucose POC Glucose 109 H 91 104 H 09/06/19 09/06/19 08:30 08:43 Glucose 99 POC Glucose 98 OUTPATIENT ANTIDIABETIC REGIMEN: * Metformin 500mg daily * Trulicity 1.5mg weekly * HbA1c: 5.8% (09/04/19) ASSESSMENT: 09/05: * Katrin received only 9 units of novolog yesterday with excellent BSG control * Patient is tolerating an oral diet and will likely be discharged soon, therefore I will resume home dose of metformin. * I will remove novolog carb coverage with metformin on board. 09/04: * Katrin has demonstrated excellent glycemic control over the past 24 hours * No further basal insulin will be given today per fasting BSG was 75 mg/dL * Post prandial BSGs at/near goal. May need to loosen Novolog CF/CR moving forward. 09/03: * Ms Quinones was admitted yesterday with suspicion of meningitis. * Pt received 10mg IV dexamethasone yesterday, which is expected to contribute to significant steroid-induced hyperglycemia. * NPH was given last evening and again this morning, to help cover DXM. * Novolog parameters loosened slightly this morning, as insulin requirements are expected to lessen as DXM wears off. PLAN FOR INPATIENT GLYCEMIC CONTROL: * Resume metformin 500 mg PO daily * Basal insulin * none * Bolus insulin - remove carb ratio * NovoLog per scale ACHS or Q6hrs while NPO * Goal Range: Low 110 mg/dL - High 140 mg/dL * Correction Factor: 20 mg/dL/unit PLAN FOR DISCHARGE: * Patient's A1c (5.8%) indicates great glycemic control as an outpatient. * Expect that pt may resume home regimen on discharge, as long as she does not report having episodes of hypoglycemia.
[2019-09-06] MEDS ORDERED: POTASSIUM CHLORIDE 20 MEQ TABCR PO STA (11:09)
--- NOTE | 2019-09-06 11:17 | Ultrasound Report ---
RENAL ULTRASOUND HISTORY: hematuria COMPARISON: Abdomen and pelvis CT 06/10/2014. FINDINGS: Right kidney: 13.8 cm. No hydronephrosis. Normal corticomedullary differentiation and cortical thickn ess. Left kidney: 13.4 cm. Mild left hydronephrosis. Normal corticomedullary differentiation and cortical thickness. Bladder: Bladder distended and not visualized. IMPRESSION: 1. Mild left hydronephrosis. 2. Normal right kidney. ACT 112: Positive. There are findings on this exam that require communication between the performing entity and the patient following Patient Test Result Information Act ([place] Act 112) guidelines. Electronically signed by: Zhen Low M.D. 09/06/2019 11:16 AM
[2019-09-06] MEDS: METFORMIN HCL 500 MG TAB PO SCH (11:40)
[2019-09-06] MEDS ORDERED: IOVERSOL 100ml IV PRN (14:15)
--- NOTE | 2019-09-06 15:02 | CT Scan Report ---
CT UROGRAM CLINICAL HISTORY: Hematuria. COMPARISON STUDY: Abdominal CT dated 06/10/2014. TECHNIQUE: Before and following the IV administration of 93 cc of Optiray 320, CT urogram of the abd omen and pelvis is performed from the lung bases to the proximal femora. Images are reviewed in the a xial, sagittal, and coronal planes. IV contrast was administered without complication. A dose loweri ng technique was utilized adhering to the principles of ALARA. The examination is degraded by streak artifact from extensive metallic spinal hardware. CT DOSE: 2067.66 mGycm FINDINGS: Lung bases: The heart is normal in size and without pericardial effusion. The lung bases are clear. Liver: The contrast-enhanced liver is enlarged, measuring 19.7 cm in length. The liver demonstrates d iffusely diminished attenuation consistent with hepatic steatosis. There is no intrahepatic biliary d uctal dilatation. The hepatic veins and portal veins are patent. Gallbladder: Surgically absent noting clips in the gallbladder fossa. Spleen: Normal in size and attenuation. Pancreas: Moderately atrophic and grossly unremarkable. Adrenal glands: There is mild nodular thickening of the adrenal glands. Kidneys and ureters: The contrast enhanced kidneys are normal in size. There is a 5 mm obstructing ca lculus in the left proximal ureter at the level of L4 seen on image #167. This causes mild to moderat e left hydroureteronephrosis comment with associated left-sided perinephric stranding. An additional punctate nonobstructing calculus is noted in left kidney. No right renal calculi are identified and t here is no right-sided hydronephrosis. The kidneys enhance symmetrically. There is slightly delayed e xcretion from the left kidney. There is no enhancing renal cortical mass lesion identified. There is no evidence of urothelial lesion within the renal pelvis bilaterally or along the course of either ur eter. The left ureter is not opacified by excreted contrast. There is also suboptimal opacification o f the mid to distal right ureter. Abdominal vasculature: The abdominal aorta is normal in course and caliber. Bowel: There is no bowel obstruction. Moderate fecal retention is seen throughout the colon. The appe ndix is well-visualized and normal. Peritoneum: There is no intraperitoneal free air or abdominal ascites. There is laxity of the ventral pelvic wall. Lymphadenopathy: None. Pelvic viscera: The bladder is normal as visualized. The uterus is diminutive versus surgically absen t. Gas is noted within the vagina. No adnexal lesion is seen. Skeletal structures: The skeletal structures are osteopenic. There is advanced lumbosacral spondylosi s. There is postoperative change from laminectomy and posterior fusion seen from L1-L5. Lucency aroun d the interpedicular screws at L1 suggests loosening. The left L1 screw extends through the superior endplate of the L1 vertebral body which is sclerotic. Sclerotic change is seen in the sacroiliac join ts. No lytic or blastic lesions are seen. IMPRESSION: 1. There is a 5 mm obstructing calculus in the left proximal ureter. This causes mild left hydrourete ronephrosis. 2. An additional punctate nonobstructing calculus is seen in the left kidney. No right renal calculi are identified. 3. There is postoperative change from extensive lumbar spinal fusion surgery as above. There is evide nce of loosening of the L1 interpedicular screws. The left interpedicular screw at L1 extends through the superior endplate and into the disc space. 4. No enhancing renal cortical mass is identified. No evidence of urothelial lesion is seen; however, the left renal collecting system and left ureter are not well opacified. 5. Hepatomegaly and hepatic steatosis. 6. Moderate constipation. 7. Additional findings as above. ACT 112: Negative or not required by law. Electronically signed by: Wai Galloway M.D. 09/06/2019 3:01 PM
[2019-09-06] MEDS ORDERED: MoRPHine SULFATE 2 MG/ML CARP IV PRN (15:30)
--- NOTE | 2019-09-06 15:44 | Hospitalist Progress Note ---
Date of Service September 06, 2019 Assessment & Plan (1) Hydronephrosis with obstructing calculus: Patient with reported hematuria x 1 month * Family hx renal ca (mother in her 60s) --> blood on UA. Urine cytology pending given family hx renal ca in 60s * Ordered Renal US -- showed L sided hydro * CT A/P with 5mm L obstructing calculus in left proximal ureter with mild left hydroureteronephrosis, additional punctate nonobstructing calculus L kidney. Of note, evidence of loosening of L1 interpedicular screws * Cr stable * Nephrology consulted -- appreciate assistance Will be made NPO after midnight Strain all urine Morphine prn pain (2) Hematuria: * Secondary to stone (3) Lumbar stenosis: * Patient with history of chronic pain lumbar spinal stenosis s/p surgical repair [address] Smyth * Continue home gabapentin but changed to 300mg QAM and 600mg HS as that is how she takes at home and helps her get better sleep * Added tylenol, morphine prn * CT A/P --> with postoperative change from extensive lumbar spinal fusion surgery as above. There is evidence of loosening of the L1 interpedicular screws. The left interpedicular screw at L1 extends through the superior endplate and into the disc space. * Will discuss with ortho spine to see if this requires further evaluation (4) Meningitis: RULED OUT * Patient came to the emergency department with headache,neck pain, fevers at home, leukocytosis and vomiting * Lumbar puncture abnormal with elevated white count. Mildly elevated protein concern for meningitis was undertaken cultures were sent patient was initiated on Rocephin ampicillin vancomycin and dexamethasone in ER. * CSF Gram Stain without WBC or organisms seen/Culture NO GROWTH - FINAL * Of note, patient did receive dexamethasone prior to antibiotic administration and this could contribute to elevated WBCs in CSF on initial labs * --> discontinued Ampicillin, Vancomycin, Acyclovir (biofire, Lyme CSF negative) * Continue rocephin for now in case of [employer] disease, but switched to 2gm daily Urine culture with pin-point growth, re-incubating --> follow * COVID negative (5) Diabetes: * A1c 5.8 * Patient on Trulicity 1.5mg SQ weekly and Metformin 500mg PO daily * BSG ac/hs * ISS while inpatient * BSGs acceptable * Continue to monitor (6) Hypertension: * Chronic. Had episode 151/101 evening 09/03 * Resumed HCTZ, however patient now again with hypokalemia, K 3.2 * --> switched to lisinopril 5mg QAM. Patient also with DM and should be on MATHIEU/ARB * BP currently 112/74 (7) Hypokalemia: * Markedly low K on admission at 2.8 --> given oral and IVF replacement. Mag 2.3. Had resolved * K 3.4 with switch from HCTZ to Lisinopril (given hx DM) -- ordered 20meq PO replacement * BMP in AM (8) Hypothyroidism: * Chronic. Last TSH 10/31/18 1.65--> currently 4.5, upper limit of normal but in setting of acute illness * Continue home levothyroxine 25mcg PO daily * Rec repeat TFT in 6-8 weeks outpatient and possibly need to increase dose of levothyroxine (9) UTI (urinary tract infection): * Patient with reported hematuria/dysuria and typically asymptomatic with previous UTIs * UA obtained -- 1+ leuk esterase, >30 WBC, 10-30 RBC, trace blood, 1+ protein, trace glucose, 1+ ketones, negative bacteria * Follow cultures --> already on rocephin/ampicillin/vanc as above prior to obtaining UA --> continued now on Rocephin (will continue to cover given hydro) * Initial cultures without growth however re-incubating --> normal sonny * Hepatitis panel -- Bs antigen, C antibody negative. others pending * LFTs on AM labs wnl (10) Abnormal finding of diagnostic imaging: See above (11) DVT prophylaxis: * SCDs will be employed for DVT prevention given recent lumbar puncture Dispo: Urology consulted for obstructing stone --> NPO after midnight for possible intervention Admission and Anticipated Discharge Date Admission Date: September 03, 2019 Supervising Physician Co-Signing Physician Notes SWATHI Supervision Note: I did not personally see or examine the patient today, but I verified all choudhury points of SWATHI Anderson's assessment and plan with the following exceptions/additions: None Subjective Patient evaluated this morning. States she is feeling better. Decreased pain with urination and frequency. Discussed renal US results and that we will obtain CT to r/o stone/masses. Denied headache, nausea or pain at this time outside of with urination. Upon re-evaluation this afternoon following CT patient with increased lower back pain. Discussed findings of 5mm obstructing stone and that we will consult Urology for possible stent/stone extraction. Denies fevers, chills, chest pain, shortness of breath, abdominal pain, n/v/d at this time. Will be made NPO after midnight in anticipation for intervention. Review of Systems Review of Systems: All systems reviewed & are unremarkable except as noted in HPI & below Physical Exam Constitutional: WD/WN, vitals as above + obese; no acute distress Eyes: + anicteric sclerae and PERRL ENMT: external ear and nose normal, oropharynx normal Neck: trachea midline, no thyromegaly Respiratory: normal respiratory effort, lungs clear to auscultation Cardiovascular: RRR, no murmur, no edema Gastrointestinal (Abdomen): normal bowel sounds, soft, nontender, no hepatosplenomegaly Musculoskeletal: no cyanosis or clubbing, extremities motor strength 5/5 Skin: no rashes, warm and dry Neurologic: PERRL, EOMI, accommodation nl, no face palsy, no dysarthria Psychiatric: A+Ox3, euthymic affect Genitourinary: no CVA tenderness (initially, then L CVA tenderness in after noon) Lymphatic: no cervical or axillary lymphadenopathy Results & Data Results & Data ([facility]) Vital Signs (Past 12 Hours) Vital Signs Temp Pulse Resp BP Pulse Ox 09/06/19 08:43 36.5 C 76 16 112/74 95 Laboratory Results 09/06/19 09/06/19 09/06/19 Range/Units 11:54 08:43 08:43 WBC 8.60 (4.8-10.8) K/uL RBC 3.93 L (4.2-5.4) M/uL Hgb 12.7 (12.0-16.0) g/dL Hct 39.0 (37-47) % MCV 99.2 (80-100) fL MCH 32.3 (25-34) pg MCHC 32.6 (32-36) g/dL RDW Std Deviation 47.6 H (36.4-46.3) fL RDW Coeff of Leo 13.0 (11.5-14.5) % Plt Count 268 (130-400) K/uL MPV 10.0 (7.4-10.4) fL Sodium 142 (136-145) mmol/L Potassium 3.4 L (3.5-5.1) mmol/L Chloride 109 H (98-107) mmol/L Carbon Dioxide 27 (21-32) mmol/L Anion Gap 6.0 (3-11) BUN 13 (7-18) mg/dl Creatinine 0.65 (0.6-1.2) mg/dl Est Cr Clr Drug Dosing 122.7 ml/min Est GFR ( Amer) 116.7 Est GFR (Non-Af Amer) 100.7 BUN/Creatinine Ratio 19.3 (10-20) Glucose 99 (70-99) mg/dl POC Glucose 113 H (70-99) mg/dl Calcium 8.8 (8.5-10.1) mg/dl Hepatitis A IgM Ab (NON-REACTIVE) Hep B Core IgM Ab (NON-REACTIVE) SARS-CoV-2 RNA (RT-PCR) (Negative) 09/06/19 09/05/19 09/05/19 Range/Units 08:30 20:33 17:44 WBC (4.8-10.8) K/uL RBC (4.2-5.4) M/uL Hgb (12.0-16.0) g/dL Hct (37-47) % MCV (80-100) fL MCH (25-34) pg MCHC (32-36) g/dL RDW Std Deviation (36.4-46.3) fL RDW Coeff of Leo (11.5-14.5) % Plt Count (130-400) K/uL MPV (7.4-10.4) fL Sodium (136-145) mmol/L Potassium (3.5-5.1) mmol/L Chloride (98-107) mmol/L Carbon Dioxide (21-32) mmol/L Anion Gap (3-11) BUN (7-18) mg/dl Creatinine (0.6-1.2) mg/dl Est Cr Clr Drug Dosing ml/min Est GFR ( Amer) Est GFR (Non-Af Amer) BUN/Creatinine Ratio (10-20) Glucose (70-99) mg/dl POC Glucose 98 104 H 91 (70-99) mg/dl Calcium (8.5-10.1) mg/dl Hepatitis A IgM Ab (NON-REACTIVE) Hep B Core IgM Ab (NON-REACTIVE) SARS-CoV-2 RNA (RT-PCR) (Negative) 09/05/19 09/04/19 Range/Units 06:40 13:45 WBC (4.8-10.8) K/uL RBC (4.2-5.4) M/uL Hgb (12.0-16.0) g/dL Hct (37-47) % MCV (80-100) fL MCH (25-34) pg MCHC (32-36) g/dL RDW Std Deviation (36.4-46.3) fL RDW Coeff of Leo (11.5-14.5) % Plt Count (130-400) K/uL MPV (7.4-10.4) fL Sodium (136-145) mmol/L Potassium (3.5-5.1) mmol/L Chloride (98-107) mmol/L Carbon Dioxide (21-32) mmol/L Anion Gap (3-11) BUN (7-18) mg/dl Creatinine (0.6-1.2) mg/dl Est Cr Clr Drug Dosing ml/min Est GFR ( Amer) Est GFR (Non-Af Amer) BUN/Creatinine Ratio (10-20) Glucose (70-99) mg/dl POC Glucose (70-99) mg/dl Calcium (8.5-10.1) mg/dl Hepatitis A IgM Ab NON-REACTIVE (NON-REACTIVE) Hep B Core IgM Ab NON-REACTIVE (NON-REACTIVE) SARS-CoV-2 RNA (RT-PCR) NEGATIVE (Negative) Diagnostic Findings Renal US IMPRESSION: 1. Mild left hydronephrosis. 2. Normal right kidney. CT Abdomen /Pelvis w/wo IMPRESSION: 1. There is a 5 mm obstructing calculus in the left proximal ureter. This causes mild left hydroureteronephrosis. 2. An additional punctate nonobstructing calculus is seen in the left kidney. No right renal calculi are identified. 3. There is postoperative change from extensive lumbar spinal fusion surgery as above. There is evidence of loosening of the L1 interpedicular screws. The left interpedicular screw at L1 extends through the superior endplate and into the disc space. 4. No enhancing renal cortical mass is identified. No evidence of urothelial lesion is seen; however, the left renal collecting system and left ureter are no t well opacified. 5. Hepatomegaly and hepatic steatosis. 6. Moderate constipation. 7. Additional findings as above. PG Care Time/CCT Total # of Minutes Spent Total Time Spent with Patient: Total time spent is greater than 50% in coordination of care (as documented) at patient's floor/unit and/or counseling patient: Coding Level of Care Code 73527 Subseq Hosp Care Lvl 3 Diagnoses Hydronephrosis with obstructing calculus N13.2 Hematuria R31.9 Lumbar stenosis M48.061 Meningitis G03.9 Diabetes E11.9 Hypertension I10 Hypokalemia E87.6 Hypothyroidism E03.9 UTI (urinary tract infection) N39.0 Abnormal finding of diagnostic imaging R93.89 DVT prophylaxis Z29.9
[2019-09-06] MEDS: MoRPHine SULFATE 4 MG/ML 1 ML CARP\\VIAL IV PRN ×2 (16:13→21:09)
[2019-09-06] MEDS: GABAPENTIN 600 MG TAB PO SCH (20:26)
[2019-09-07] MEDS: NSS + 20MEQ KCL 20 MEQ/1,000 ML BAG IV SCH ×2 (00:25→13:47)
[2019-09-07] MEDS: TAMSULOSIN HCL 0.4 MG CAP PO SCH ×2 (00:25→20:32)
[2019-09-07] MEDS: MoRPHine SULFATE 4 MG/ML 1 ML CARP\\VIAL IV PRN ×2 (04:04→23:12)
[2019-09-07] MEDS: LEVOTHYROXINE SODIUM 25 MCG TABLET PO SCH (05:29)
[2019-09-07] MEDS: cefTRIAXone SODIUM 2,000 MG in DEXTROSE 5% 50 ML IV SCH (05:30)
[2019-09-07] MEDS ORDERED: Nursing to Pharmacy Communication SCH ×2 (06:00→17:00)
[2019-09-07] MEDS: INSULIN ASPART 100 UNITS/ML 3 ML PEN SC SCH ×4 (06:39→20:44)
[2019-09-07 07:27] LABS: Hematocrit (blood only) 36.8 % (37-47); Hemoglobin 12.1 g/dL (12.0-16.0); Mean Corpuscular Hemoglobin 32.8 pg (25-34); Mean Corpuscular Hgb Conc 32.9 g/dL (32-36); Mean Corpuscular Volume 99.7 fL (80-100); Platelet Count 271 K/uL (130-400); RDW Coefficient of Variation 12.9 % (11.5-14.5); RDW Standard Deviation 47.3 fL (36.4-46.3); Red Blood Count 3.69 M/uL (4.2-5.4); White Blood Count 8.96 K/uL (4.8-10.8)
[2019-09-07 07:52] LABS: BUN Creatinine Ratio 21.4 (10-20); Calcium 8.6 mg/dl (8.5-10.1); Creatinine Clr Calc Pharmacy 128.7 ml/min; Est GFR (African American) 118.5; Est GFR (Non-African American) 102.2; Potassium 3.6 mmol/L (3.5-5.1)
[2019-09-07] MEDS: NAPROXEN 375 MG TAB PO SCH ×2 (09:03→20:33)
[2019-09-07] MEDS: GABAPENTIN 300 MG CAP PO SCH (09:03)
--- NOTE | 2019-09-07 09:12 | Urology Consultation ---
Date of Consultation September 07, 2019 Assessment & Plan (1) Hydronephrosis with obstructing calculus: 4 to 5 mm left proximal ureteral calculus We had a very clarke conversation today that I am uncertain that the stone is causing her symptoms although it is certainly a possibility I have discussed the option of observation and trial of passage, intervention in the form of emergent cystoscopy and ureteral stent placement, delayed intervention for definitive stone treatment as a solitary surgeryoutpatient She was very aggressive with attacking me and stating that she cannot return in the future for an outpatient procedure and would have to have everything taken care of as an inpatient I have discussed that emergent stent placement will require a second procedure regardless as I will not be able to treat her stone definitively during a single setting She remains resolute that she would like intervention RAEANN I have discussed this with the operating room, unfortunately given the current emergency schedule it is better to delay the surgery until tomorrow morning I will place her on the schedule for cystoscopy left ureteral stent placement for tomorrow morning She can have a diet now and can be n.p.o. after midnight in preparation History of Present Illness Attending Physician: Karuna Torres MD History of Present Illness Consult placed secondary to left proximal ureteral calculus identified during CT to work-up indeterminate pain0 Has had a variety of urinary symptoms since her admission including some dysuria, urgency, frequencythe symptoms seem to wax and wane She additionally has chronic lower back pain related to prior spine surgeries She reports that her only pain now is the chronic lower back pain She also has had intermittent nausea and some vomiting She denies a history of kidney stones Unfortunately, she was very challenging to deal with during this visit as she immediately began to attack me verbally stating that we needed to go to the operating room immediately because she is not getting answers and she does not have insurance CT showing a 4 to 5 mm left proximal ureteral calculus with minimal hydronephrosis and minimal perinephric stranding No leukocytosis, creatinine 0.62 Urine culture negative Allergies Allergy/AdvReac Type Severity Reaction Status Date / Time celecoxib Allergy Intermediate RASH, Verified 09/03/19 15:21 TOLERATES ADVIL adhesive Allergy Unknown REDNESS Verified 09/03/19 15:21 WITH BANDAIDS Home Medications Home Medications Medication Instructions Recorded Confirmed Type dulaglutide [Trulicity] 1.5 mg SUBCUT WK 09/03/19 09/03/19 History gabapentin 300 - 600 mg PO BID 09/03/19 09/03/19 History hydrochlorothiazide 25 mg PO QAM 09/03/19 09/03/19 History levothyroxine 25 mcg PO QAM 09/03/19 09/03/19 History metformin 500 mg PO QAM 09/03/19 09/03/19 History naproxen 375 mg PO BID 09/03/19 09/03/19 History Patient History Medical History (Updated 09/07/19 @ 09:14 by Usman Urban MD) Hypertension Hypothyroidism Surgical History History of section History of cholecystectomy History of dilation and curettage History of foot surgery History of hysteroscopy with endometrial ablation Family History Mother Breast cancer Social History Preferred Language: [place] Citizen Communication Ability: Effective 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 Beliefs That Will Affect Care: None Current Living Situation: Spouse and Family Feels Safe at Home: Yes Smoking Status: Current every day smoker Tobacco Type: cigarettes ; Cigarettes Per Day: 1/2 pack ; Second Hand Exposure: Yes ; Hx Alcohol Use: Yes Alcohol type: beer, wine and hard liquor Hx Substance Use: No Review of Systems Constitutional: + body aches; no fever, no chills and no fatigue Eyes: no worsening vision Ear, Nose, Mouth, Throat: no facial pain and no pain with swallowing Respiratory: no cough and no dyspnea Cardiovascular: no chest pain and no palpitations Gastrointestinal: + abdominal pain, + nausea and + vomiting Genitourinary: + dysuria and + hematuria; no difficulty urinating and no urinary frequency Musculoskeletal: + back pain Integumentary: no rash and no urticaria Neurologic: no gait abnormality and no unsteadiness Psychiatric: no behavioral changes and no depression Endocrine: no fatigue Physical Exam Physical Exam: Nontoxic appearing Abdomen soft, no rebound, no significant left flank pain Constitutional: well developed and well nourished Neck: neck nontender Respiratory: normal respiratory effort; no respiratory distress and does not use accessory muscles Cardiovascular: Rate/Rhythm: regular rate Vessels: radial pulses present Extremities: no edema Gastrointestinal (Abdomen): Inspection/Auscultation: abdomen normal to inspection Percussion/Palpation: abdomen soft; abdomen nontender and no guarding Musculoskeletal: Head/Neck/Chest: normocephalic and head atraumatic Extremities: extremities normal to inspection Skin: no rashes and no lesions Trauma: no evidence of skin trauma Neurologic: awake; not obtunded Speech / Cognition: normal speech Motor/Sensory: no tremor Psychiatric: Orientation: alert and oriented x 3 Lymphatic: no lymphadenopathy Results & Data Vital Signs (Past 12 Hours) Vital Signs Temp Pulse Resp BP Pulse Ox 09/07/19 07:20 36.6 C 68 16 116/76 97 09/06/19 23:10 36.5 C 76 17 141/85 H 99 PG Care Time/CCT Total # of Minutes Spent Total Time Spent with Patient: Total time spent is greater than 50% in coordination of care (as documented) at patient's floor/unit and/or counseling patient: Coding Level of Care Code 43439 Inpt Consult Level 4 Diagnoses Hydronephrosis with obstructing calculus N13.2
[2019-09-07] MEDS: METFORMIN HCL 500 MG TAB PO SCH (09:31)
[2019-09-07] MEDS ORDERED: hydroCHLOROthiazide 25 MG TAB PO STA (10:35)
[2019-09-07] MEDS ORDERED: LORazepam 0.5 MG TAB PO STA (10:37)
--- NOTE | 2019-09-07 11:03 | Pharmacy Report ---
Pharmacy Glycemic Short Note 2 - Date of Service September 07, 2019 - Glycemic Short BSG Results (Last 24 hours): 09/06/19 09/06/19 09/06/19 11:54 16:31 20:35 Glucose POC Glucose 113 H 116 H 141 H 09/07/19 09/07/19 06:18 06:57 Glucose 104 H POC Glucose 113 H OUTPATIENT ANTIDIABETIC REGIMEN: * Metformin 500mg daily * Trulicity 1.5mg weekly * HbA1c: 5.8% (09/04/19) ASSESSMENT: * Patient is scheduled for ureteral stent insertion/removal tomorrow morning * NPO after midnight * IV contrast administered yesterday for abdominal/pelvis CT scan * BSGs well-controlled yesterday - ranging 98-141 mg/dL * Patient received metformin 500 mg x 1 + 7 units of prandial/correctional insulin PLAN FOR INPATIENT GLYCEMIC CONTROL: * Metformin previously restarted - will d/c in light of IV contrast and uncertainty in diet moving forward * Basal insulin * none * Bolus insulin - add carb coverage with discontinuation of metformin * NovoLog per scale ACHS or Q6hrs while NPO * Goal Range: Low 110 mg/dL - High 140 mg/dL * Correction Factor: 20 mg/dL/unit * INS:CHO Ratio: 1unit per 10 gm CHO consumed PLAN FOR DISCHARGE: * Patient's A1c (5.8%) indicates great glycemic control as an outpatient. * Expect that pt may resume home regimen on discharge, as long as she does not report having episodes of hypoglycemia.
--- NOTE | 2019-09-07 11:47 | Hospitalist Progress Note ---
Date of Service September 07, 2019 Assessment & Plan (1) Hydronephrosis with obstructing calculus: Patient with reported hematuria x 1 month * Family hx renal ca (mother in her 60s) --> blood on UA. Urine cytology pending given family hx renal ca in 60s * Ordered Renal US -- showed L sided hydro * CT A/P with 5mm L obstructing calculus in left proximal ureter with mild left hydroureteronephrosis, additional punctate nonobstructing calculus L kidney. Of note, evidence of loosening of L1 interpedicular screws * Cr stable * Nephrology consulted -- appreciate assistance To have diet today, NPO after midnight Continue to strain all urine Pain/nausea control (2) Hematuria: * Secondary to stone (3) Lumbar stenosis: * Patient with history of chronic pain lumbar spinal stenosis s/p surgical repair [address] Smyth * Continue home gabapentin but changed to 300mg QAM and 600mg HS as that is how she takes at home and helps her get better sleep * Added tylenol, morphine prn * CT A/P --> with postoperative change from extensive lumbar spinal fusion surgery as above. There is evidence of loosening of the L1 interpedicular screws. The left interpedicular screw at L1 extends through the superior endplate and into the disc space. * Discussed case with ortho spine early childhood education worker -- rec follow up imaging but non- urgent As patient with increasing back pain, highly likely secondary to obstructing stone with hydro and CVA tenderness, but will obtain MRI lumbar spine for further evaluation and will set up outpatient follow up pending results (4) Meningitis: RULED OUT * Patient came to the emergency department with headache,neck pain, fevers at home, leukocytosis and vomiting * Lumbar puncture abnormal with elevated white count. Mildly elevated protein concern for meningitis was undertaken cultures were sent patient was initiated on Rocephin ampicillin vancomycin and dexamethasone in ER. * CSF Gram Stain without WBC or organisms seen/Culture NO GROWTH - FINAL * Of note, patient did receive dexamethasone prior to antibiotic administration and this could contribute to elevated WBCs in CSF on initial labs * --> discontinued Ampicillin, Vancomycin, Acyclovir (biofire, Lyme CSF negative) * Continue rocephin for now in case of [employer] disease, but switched to 2gm daily Urine culture with pin-point growth, re-incubating --> follow * COVID negative (5) Diabetes: * A1c 5.8 * Patient on Trulicity 1.5mg SQ weekly and Metformin 500mg PO daily * BSG ac/hs * ISS while inpatient * BSGs acceptable * Continue to monitor (6) Hypertension: * Chronic. Had episode 151/101 evening 09/03 * Resumed HCTZ, however patient again with hypokalemia, K 3.2 and was switched to lisinopril 5mg. * Given HCTZ x 1 dose given increased edema today --> would consider combination product in future to prevent continued hypokalemia * BP 141/83 * Continue to monitor (7) Hypokalemia: * Markedly low K on admission at 2.8 --> given oral and IVF replacement. Mag 2.3 * K 3.6 (8) Hypothyroidism: * Chronic. Last TSH 10/31/18 1.65--> currently 4.5, upper limit of normal but in setting of acute illness * Continue home levothyroxine 25mcg PO daily * Rec repeat TFT in 6-8 weeks outpatient and possibly need to increase dose of levothyroxine (9) UTI (urinary tract infection): * Patient with reported hematuria/dysuria and typically asymptomatic with previous UTIs * UA obtained -- 1+ leuk esterase, >30 WBC, 10-30 RBC, trace blood, 1+ protein, trace glucose, 1+ ketones, negative bacteria * Cultures with low counts probable skin sonny, HOWEVER was collected after already on abx for meningitis as above * Continued now on Rocephin (will continue to cover given hydro) unless otherwise rec by Urology for OR tomorrow * Initial cultures without growth however re-incubating --> normal sonny * Hepatitis panel negative. LFTs wnl (10) Abnormal finding of diagnostic imaging: See above (11) DVT prophylaxis: * SCDs will be employed for DVT prevention given recent lumbar puncture * Chemoproph held as patient for OR in AM Dispo: OR tomorrow with Dr. Urban Admission and Anticipated Discharge Date Admission Date: September 03, 2019 Supervising Physician Co-Signing Physician Notes PA Supervision Note: I did not personally see or examine the patient today, but I verified all choudhury points of SWATHI Anderson's assessment and plan with the following exceptions/additions: None Subjective Patient evaluated this morning. Became tearful as she said she did not have a good interaction this morning after being woken up from her sleep to discuss treatment for her stone. Patient felt provider did not want to be here on a holiday weekend and that pain not possibly related to her stone seen on imaging. Denies passing of stone with urination after starting flomax. Less hematuria. Denies fevers/chills, chest pain, shortness of breath, abdominal pain, headache at this time. Does have some increased swelling of legs/hands today since stopping her HCTZ. Discussed resuming this medication and possibly getting a combination product to help with swelling and keep potassium from dropping. States she has a aching pain in her left back today. Tolerable with medication ordered. Some nausea. Agreeable to MRI this afternoon for further evaluation of findings on imaging as discussed with ortho spine early childhood education worker. Plan for diet today and NPO after midnight for OR in AM. Questions/concerns addressed at this time. Review of Systems Review of Systems: All systems reviewed & are unremarkable except as noted in HPI & below Physical Exam Constitutional: WD/WN, vitals as above + obese; no acute distress Eyes: + anicteric sclerae and PERRL Neck: trachea midline, no thyromegaly Respiratory: normal respiratory effort, lungs clear to auscultation Cardiovascular: Rate/Rhythm: regular rate and regular rhythm Heart Sounds: no murmur Extremities: + edema (b/l LE) Gastrointestinal (Abdomen): normal bowel sounds, soft, nontender, no hepatosplenomegaly Musculoskeletal: no cyanosis or clubbing, extremities motor strength 5/5 Skin: no rashes, warm and dry Neurologic: PERRL, EOMI, accommodation nl, no face palsy, no dysarthria Psychiatric: Orientation: alert and oriented x 3 Affect: + tearful affect Genitourinary: + CVA tenderness (LEFT) Lymphatic: no cervical or axillary lymphadenopathy Results & Data Results & Data ([facility]) Vital Signs (Past 12 Hours) Vital Signs Temp Pulse Resp BP Pulse Ox 09/07/19 07:20 36.6 C 68 16 116/76 97 Laboratory Results 09/07/19 09/07/19 09/07/19 Range/Units 06:57 06:57 06:18 WBC 8.96 (4.8-10.8) K/uL RBC 3.69 L (4.2-5.4) M/uL Hgb 12.1 (12.0-16.0) g/dL Hct 36.8 L (37-47) % MCV 99.7 (80-100) fL MCH 32.8 (25-34) pg MCHC 32.9 (32-36) g/dL RDW Std Deviation 47.3 H (36.4-46.3) fL RDW Coeff of Leo 12.9 (11.5-14.5) % Plt Count 271 (130-400) K/uL MPV 10.0 (7.4-10.4) fL Sodium 142 (136-145) mmol/L Potassium 3.6 (3.5-5.1) mmol/L Chloride 110 H (98-107) mmol/L Carbon Dioxide 30 (21-32) mmol/L Anion Gap 2.0 L (3-11) BUN 13 (7-18) mg/dl Creatinine 0.62 (0.6-1.2) mg/dl Est Cr Clr Drug Dosing 128.7 ml/min Est GFR ( Amer) 118.5 Est GFR (Non-Af Amer) 102.2 BUN/Creatinine Ratio 21.4 H (10-20) Glucose 104 H (70-99) mg/dl POC Glucose 113 H (70-99) mg/dl Calcium 8.6 (8.5-10.1) mg/dl 09/06/19 09/06/19 09/06/19 Range/Units 20:35 16:31 11:54 WBC (4.8-10.8) K/uL RBC (4.2-5.4) M/uL Hgb (12.0-16.0) g/dL Hct (37-47) % MCV (80-100) fL MCH (25-34) pg MCHC (32-36) g/dL RDW Std Deviation (36.4-46.3) fL RDW Coeff of Leo (11.5-14.5) % Plt Count (130-400) K/uL MPV (7.4-10.4) fL Sodium (136-145) mmol/L Potassium (3.5-5.1) mmol/L Chloride (98-107) mmol/L Carbon Dioxide (21-32) mmol/L Anion Gap (3-11) BUN (7-18) mg/dl Creatinine (0.6-1.2) mg/dl Est Cr Clr Drug Dosing ml/min Est GFR ( Amer) Est GFR (Non-Af Amer) BUN/Creatinine Ratio (10-20) Glucose (70-99) mg/dl POC Glucose 141 H 116 H 113 H (70-99) mg/dl Calcium (8.5-10.1) mg/dl PG Care Time/CCT Total # of Minutes Spent Total Time Spent with Patient: Total time spent is greater than 50% in coordination of care (as documented) at patient's floor/unit and/or counseling patient: Coding Level of Care Code 96301 Subseq Hosp Care Lvl 3 Diagnoses Hydronephrosis with obstructing calculus N13.2 Hematuria R31.9 Lumbar stenosis M48.061 Meningitis G03.9 Diabetes E11.9 Hypertension I10 Hypokalemia E87.6 Hypothyroidism E03.9 UTI (urinary tract infection) N39.0 Abnormal finding of diagnostic imaging R93.89 DVT prophylaxis Z29.9
[2019-09-07] MEDS: GABAPENTIN 600 MG TAB PO SCH (20:33)
[2019-09-07] MEDS ORDERED: GADOBUTROL 30ML VIAL IV PRN (22:25)
[2019-09-08] MEDS ORDERED: Nursing to Pharmacy Communication SCH ×2 (03:30→09:45)
[2019-09-08] MEDS: cefTRIAXone SODIUM 2,000 MG in DEXTROSE 5% 50 ML IV SCH (05:11)
[2019-09-08] MEDS: LEVOTHYROXINE SODIUM 25 MCG TABLET PO SCH (05:12)
[2019-09-08] MEDS ORDERED: INSULIN ASPART 100 UNITS/ML 3 ML PEN SC SCH ×2 (06:00→11:30)
[2019-09-08 07:02] LABS: BUN Creatinine Ratio 19.4 (10-20); Calcium 8.9 mg/dl (8.5-10.1); Creatinine Clr Calc Pharmacy 147.7 ml/min; Potassium 3.5 mmol/L (3.5-5.1)
--- NOTE | 2019-09-08 07:21 | Urology Progress Note ---
Date of Service September 08, 2019 Assessment & Plan (1) Hydronephrosis, left: Left hydronephrosis secondary to an obstructing ureteral calculus Plan for cystoscopy left ureteral stent placement today Currently on ceftriaxonethis should be sufficient coverage for the procedure Subjective No major changes overnight Prepared for the OR this morning for cystoscopy and left ureteral stent placement Physical Exam Constitutional: well developed and well nourished Neck: neck nontender Respiratory: normal respiratory effort; no respiratory distress and does not use accessory muscles Cardiovascular: Rate/Rhythm: regular rate Vessels: radial pulses present Extremities: no edema Gastrointestinal (Abdomen): Inspection/Auscultation: abdomen normal to inspection Percussion/Palpation: abdomen soft; abdomen nontender and no guarding Musculoskeletal: Head/Neck/Chest: normocephalic and head atraumatic Extremities: extremities normal to inspection Skin: no rashes and no lesions Trauma: no evidence of skin trauma Neurologic: awake; not obtunded Speech / Cognition: normal speech Motor/Sensory: no tremor Psychiatric: Orientation: alert and oriented x 3 Lymphatic: no lymphadenopathy Results & Data Vital Signs (Past 12 Hours) Vital Signs Temp Pulse Resp BP Pulse Ox 09/08/19 06:33 36.9 C 72 16 97 09/07/19 22:53 36.9 C 81 16 151/75 H 94 PG Care Time/CCT Total # of Minutes Spent Total Time Spent with Patient: Total time spent is greater than 50% in coordination of care (as documented) at patient's floor/unit and/or counseling patient: Coding Level of Care Code 44275 Subseq Hosp Care Lvl 2 Diagnoses Hydronephrosis, left N13.30
[2019-09-08] MEDS ORDERED: ATROPINE SULFATE 0.1 MG/ML 10ML SYR IV PRN (07:25)
[2019-09-08] MEDS ORDERED: ONDANSETRON INJ 2 MG/ML 2 ML VIAL IV PRN (07:25)
[2019-09-08] MEDS ORDERED: fentaNYL citrate 100 MCG/2 ML VIAL IV PRN (07:25)
[2019-09-08] MEDS ORDERED: ePHEDrine sulfate 50 MG/ML AMP IV PRN (07:25)
[2019-09-08] MEDS ORDERED: MIDAZOLAM HCL 1 MG/ML 2ML VIAL ONE (08:11)
[2019-09-08] MEDS ORDERED: PROPOFOL IV EMULSION 10 MG/ML 20 ML VIAL IV ONE (08:11)
[2019-09-08] MEDS ORDERED: fentaNYL citrate 100 MCG/2 ML VIAL ONE (08:11)
[2019-09-08] MEDS ORDERED: LIDOCAINE HCL 2% 2 ML VIAL/AMP(20MG/ML) INFIL ONE (08:11)
--- NOTE | 2019-09-08 08:24 | Anesthesiology Consultation ---
Date of Service September 08, 2019 Assessment & Plan (1) Encounter for pre-operative examination: Chart Review Chart Review: Acceptable Risk for Surgery Consults Requested none ASA ASA3 Proposed Anesthesia Anesthesia Type: MAC Risk / Benefits Reviewed With: PT / POA / Parent / Guardian, Accepts Plan and Informed Consent Obtained History Surgery Operation Date: 09/08/19 08:30 Proposed Procedures p Ureteral Stent Insertion/Removal(Left) - Usman Urban MD Height/Weight Height: 5 ft 4 in Weight: 114.4 kg Allergies Allergy/AdvReac Type Severity Reaction Status Date / Time celecoxib Allergy Intermediate RASH, Verified 09/03/19 15:21 TOLERATES ADVIL adhesive Allergy Unknown REDNESS Verified 09/03/19 15:21 WITH BANDAIDS Medications Home Medications Medication Instructions Recorded Confirmed Last Taken dulaglutide [Trulicity] 1.5 mg SUBCUT WK 09/03/19 09/03/19 08/31/19 gabapentin 300 - 600 mg PO BID 09/03/19 09/03/19 09/03/19 hydrochlorothiazide 25 mg PO QAM 09/03/19 09/03/19 09/02/19 levothyroxine 25 mcg PO QAM 09/03/19 09/03/19 09/02/19 metformin 500 mg PO QAM 09/03/19 09/03/19 09/01/19 naproxen 375 mg PO BID 09/03/19 09/03/19 09/03/19 Active Medications Generic Name Dose Route Start Last Admin Trade Name Freq PRN Reason Stop Dose Admin Acetaminophen 650 mg 09/03/19 21:14 09/06/19 19:08 Tylenol PO 10/03/19 21:13 650 mg Q4H PRN Administration pain/fever Gabapentin 300 mg 09/06/19 09:00 09/07/19 09:03 Neurontin PO 10/06/19 08:59 300 mg QAM CHAPITO Administration Gabapentin 600 mg 09/05/19 21:00 09/07/19 20:33 Neurontin PO 10/05/19 20:59 600 mg HS CHAPITO Administration Gadobutrol 11.4 ml 09/07/19 22:25 09/07/19 22:01 Gadavist 30ml IV 09/11/19 22:24 11.4 ml ONCE PRN Administration Interaction Checking Ceftriaxone Sodium 2,000 mg/ 70 mls @ 140 mls/hr 09/06/19 06:00 09/08/19 05:41 Dextrose IV 09/14/19 05:59 Infused Q24H CHAPITO Infusion Protocol Insulin Aspart 0 units 09/08/19 06:00 09/08/19 06:08 Novolog Flexpen SC 10/08/19 05:59 Not Given Q6 CHAPITO Protocol Ioversol 93 ml 09/06/19 14:15 09/06/19 14:15 Optiray 320 100ml IV 09/10/19 14:14 93 ml ONCE PRN Administration Interaction Checking Levothyroxine Sodium 25 mcg 09/04/19 06:30 09/08/19 05:12 Synthroid PO 10/04/19 06:29 Not Given DAILYBB CHAPITO Lisinopril 5 mg 09/05/19 16:30 09/06/19 08:30 Zestril PO 10/05/19 16:29 5 mg QAM CHAPITO Administration Morphine Sulfate 2 mg 09/03/19 21:14 09/05/19 01:07 Morphine Sulfate IV 09/17/19 21:13 2 mg Q4 PRN Administration Pain Morphine Sulfate 4 mg 09/03/19 21:14 09/07/19 23:12 Morphine Sulfate IV 09/17/19 21:13 4 mg Q4 PRN Administration Pain Naproxen 375 mg 09/03/19 23:00 09/07/19 20:33 Naprosyn PO 10/03/19 22:59 375 mg BID CHAPITO Administration Phenazopyridine HCl 100 mg 09/05/19 10:46 09/06/19 08:30 Pyridium PO 10/05/19 10:45 100 mg TID PRN Administration Dysuria Tamsulosin HCl 0.4 mg 09/06/19 23:15 09/07/19 20:32 Flomax PO 10/06/19 23:14 0.4 mg HS CHAPITO Administration NPO Date Last Intake of Fluids: 09/07/19 Time Last Intake of Fluids: 23:59 Date Last Intake of Solids: 09/07/19 Time Last Intake of Solids: 23:59 Past Medical History Medical History (Updated 09/08/19 @ 08:24 by Pool Lacey DO) Diabetes Hypertension Hypothyroidism Exercise / Class Metabolic Activity II 4-5 Yardwork/Stairs/Walk up hill Past Family History Family History Mother Breast cancer Past Surgical History Surgical History History of section History of cholecystectomy History of dilation and curettage History of foot surgery History of hysteroscopy with endometrial ablation Past Anesthesia History No Hx of Anesthesia Complications and No Family Hx of Anesthesia Complications History of PONV No Hx of PONV and No Hx of Motion Sickness Social History Smoking Status: Current every day smoker tobacco type: cigarettes Smoking cigarettes per day: 1/2 pack Do You Dip or Chew Tobacco: No Hx Alcohol Use: Yes Alcohol type: beer, wine and hard liquor alcohol intake frequency: holidays/special occasions only Hx Substance Use: No substance use type: does not use Physical Exam Vital Signs Last Vital Signs Temp 98.4 F 09/08/19 06:33 Pulse 72 09/08/19 06:33 Resp 16 09/08/19 06:33 BP 151/75 H 09/07/19 22:53 Pulse Ox 97 09/08/19 06:33 ENMT Mouth: no dentition abnormality Thyromental Distance: > or= 3.5 Finger Breadths Mallampati Class: II Neck normal visual inspection Respiratory normal respiratory effort Auscultation: lungs clear to auscultation bilaterally Cardiovascular Rate/Rhythm: regular rate and regular rhythm Testing Laboratory Results 09/07/19 06:57 09/08/19 06:01 Hemoglobin A1c 5.8 % (4.5-5.6) H 09/04/19 05:32 Urine Color Dark Yellow 09/04/19 13:00 Urine Appearance Cloudy (Clear) A 09/04/19 13:00 Urine pH 6.5 (4.5-7.5) 09/04/19 13:00 Ur Specific [place] 1.038 (1.000-1.030) H 09/04/19 13:00 Urine Protein 1+ (Negative) H 09/04/19 13:00 Urine Glucose (UA) Trace (Negative) H 09/04/19 13:00 Urine Ketones 1+ (Negative) H 09/04/19 13:00 Urine Nitrite Negative (Negative) 09/04/19 13:00 Ur Leukocyte Esterase 1+ (Negative) H 09/04/19 13:00 Urine WBC (Auto) >30 /hpf (0-5) H 09/04/19 13:00 Urine RBC (Auto) 10-30 /hpf (0-4) H 09/04/19 13:00 U Hyaline Cast (Auto) 5-10 /lpf (0-5) H 09/04/19 13:00 U Epithel Cells (Auto) 20-30 /lpf (0-5) H 09/04/19 13:00 Urine Bacteria (Auto) Negative (Negative) 09/04/19 13:00 09/04/19 13:00 Urine Culture - Final Urine,Clean Catch Three types of organisms present, all low counts probable skin sonny. No further identifications or sensitivities to follow. 09/03/19 17:30 Gram Stain - Final Cerebral Spinal Fluid CSF Culture - Final No growth 09/08/19 09/07/19 05:52 20:34 POC Glucose 117 H 137 H
--- NOTE | 2019-09-08 09:04 | Fluoroscopy Report ---
FL retrograde includes kub HISTORY: 54 years-old Female LEFT SIDE STENT STATUS post placement of a left ureteral stent COMPARISON: CT abdomen pelvis 09/06/2019 TECHNIQUE: One spot fluoroscopic image of the left upper quadrant abdomen was obtained utilizing 2.9 seconds fluoroscopy time FINDINGS: Proximal portion of a left ureteral stent appears to be in satisfactory positioning. The distal porti on of the stent is not imaged. Partially imaged lumbar spinal fusion hardware. IMPRESSION: Fluoroscopic assistance as above. Please see procedural report for further details. ACT 112: Negative or not required by law. The above report was generated using voice recognition software. It may contain grammatical, syntax o r spelling errors. Electronically signed by: Juan Garces M.D. 09/08/2019 9:03 AM
--- NOTE | 2019-09-08 09:07 | Operative Report ---
PG Post Operative Report Pre & Post Diagnosis Operation Date: 09/08/19 08:30 Pre-Op Diagnosis: Hydronephrosis with obstructing calculus: 4 to 5 mm left proximal ureteral calculus Post-Op Diagnosis: Hydronephrosis with obstructing calculus: 4 to 5 mm left proximal ureteral calculus I identified the patient and participated in the time-out.: Yes Procedure Operation Date: 09/08/19 08:30 Actual Procedures p Ureteral Stent Insertion, Left(Left) - Usman Urban MD Surgeon Jesse Urban MD Postal Delivery Officer none Estimated Blood Loss 0 Findings Consistent with Post-Op Diagnosis Specimens none Description of Procedure The patient was identified in the preoperative holding area, appropriate informed consents were reviewed and completed and the patient was transferred to the operative suite. Upon arrival, appropriate antibiotics and anesthesia were administered and the patient was placed in dorsal lithotomy position and prepped and draped in sterile fashion. To begin the case I passed a 22 Wolof cystoscope with 30 degree lens. Inspection revealed healthy appearing bladder mucosa. Ureteral orifices were in orthotopic position. The left UO was cannulated with a sensor wire which advanced the kidney without difficulty. I then placed a 6 Wolof by 24 cm double-J ureteral stent. There was good curl in the kidney and the bladder. The bladder was decompressed and the case concluded. She was taken to the PACU in stable condition. No complications. I attest to the content of the Intraoperative Record and any orders documented therein. Any exceptions are noted below.
--- NOTE | 2019-09-08 09:20 | Anesthesiology Progress Note ---
Date of Service September 08, 2019 Anesthesia Post Procedure Vital Signs Vital Signs: Temp Pulse Pulse Resp BP Pulse Ox 09/08/19 09:15 98.4 F 79 15 122/82 96 09/08/19 09:05 88 21 138/84 97 09/08/19 08:59 98.8 F 84 14 134/82 97 09/08/19 06:33 98.4 F 72 16 97 09/07/19 22:53 98.4 F 81 16 151/75 H 94 09/07/19 15:17 98.4 F 77 18 141/83 H 98 Pain Intensity Neck: Pain Intensity: 9 Lower Back: Pain Intensity: 6 Lower Abdomen: Pain Intensity: 1 Transfer of Care Handoff Completed per policy Notes Mental Status: alert / awake / arousable and participated in evaluation Patient Amnestic to Procedure: Yes Nausea / Vomiting: adequately controlled Pain: adequately controlled Airway Patency, RR, SpO2: stable & adequate BP & HR: stable & adequate Hydration State: stable & adequate Anesthetic Complications: no major complications apparent and Pt Satisfied with anesthetic care
[2019-09-08] MEDS: GABAPENTIN 300 MG CAP PO SCH (09:43)
[2019-09-08] MEDS: NAPROXEN 375 MG TAB PO SCH (09:43)
--- NOTE | 2019-09-08 09:48 | Magnetic Resonance Report ---
MRI OF THE LUMBAR SPINE WITH AND WITHOUT CONTRAST CLINICAL HISTORY: loosening L1 interpedicular screws, low back pain COMPARISON STUDY: Lumbar spine MRI January 17, 2017. TECHNIQUE: Utilizing a 1.5 Stormy magnet and dedicated coil, multiplanar, multiecho imaging of the [facility] spine was performed before and after uneventful IV administration of 11.4 mL of Gadavist. FINDINGS: For purposes of numbering on this exam, the L5-S1 disc space is assigned to axial image 28 of 31. Pos terior decompression is noted. There are bilateral pedicle screws from L1 through L5. The left L1 ped icle screw extends through the superior endplate of L1 into the T12-L1 disc. Evidence for loosening i s better depicted on CT of September 06, 2019. No epidural fluid collection is noted. Note is made of a 5.3 x 10.7 x 4 cm laminectomy bed fluid collection that extends from the L3-L5 levels. The conus termina mikel at the T12-L1 level. There is mild increased signal within the L3-L4 disc but there is no evidenc e for endplate erosion. There is no paravertebral edema. Revision since MRI of January 17, 2017 is n oted. T12-L1: There is mild central canal narrowing due to disc bulge. Neural foramen are patent. L1-2: There is disc bulge. Central canal is patent. There is mild right neural foraminal stenosis. L2-3: Central canal is patent. There is mild right neural foraminal stenosis. L3-4: Central canal is patent. Neural foramen are patent. L4-5: Central canal is patent. There is mild left neural foraminal stenosis. L5-S1: There is disc bulge. There is mild to moderate central canal stenosis. IMPRESSION: 1. Status post posterior decompression and bilateral pedicle screw fusion from L1 through L5. Left L1 pedicle screw extends through the superior endplate into the disc. Evidence for loosening of these s crews are depicted on CT. 2. 5.3 x 10.7 x 4 cm laminectomy bed fluid collection which is likely chronic. This favors a seroma. 3. Mild to moderate central canal stenosis at L5-S1. Mild central canal narrowing at T12-L1. 4. Mild multilevel neural foraminal narrowing, as described above. ACT 112: Negative or not required by law. Electronically signed by: Ubaldo Bunn M.D. 09/08/2019 9:47 AM
--- NOTE | 2019-09-08 10:42 | Pharmacy Report ---
Pharmacy Glycemic Short Note 2 - Date of Service September 08, 2019 - Glycemic Short BSG Results (Last 24 hours): 09/07/19 09/07/19 09/07/19 12:05 17:26 20:34 Glucose POC Glucose 169 H 85 137 H 09/08/19 09/08/19 09/08/19 05:52 06:01 09:12 Glucose 112 H POC Glucose 117 H 116 H OUTPATIENT ANTIDIABETIC REGIMEN: * Metformin 500mg daily * Trulicity 1.5mg weekly * HbA1c: 5.8% (09/04/19) ASSESSMENT: * Patient is now POD #0 s/p cystoscopy with ureteral stent insertion * IV contrast administered on 09/05 for abdominal/pelvis CT scan * BSGs well-controlled yesterday - ranging 85-169 mg/dL * Patient received 11 units of prandial/correctional insulin * Fasting BSG of 117 mg/dL PLAN FOR INPATIENT GLYCEMIC CONTROL: * Metformin previously restarted - will d/c in light of IV contrast and uncertainty in diet moving forward * Basal insulin * hold * Bolus insulin - loosen * NovoLog per scale ACHS or Q6hrs while NPO * Goal Range: Low 110 mg/dL - High 140 mg/dL * Correction Factor: 30 mg/dL/unit * INS:CHO Ratio: 1unit per 10 gm CHO consumed PLAN FOR DISCHARGE: * Patient's A1c (5.8%) indicates great glycemic control as an outpatient. * Expect that pt may resume home regimen on discharge, as long as she does not report having episodes of hypoglycemia.
[2019-09-08] MEDS ORDERED: OXYCODONE HCL IR 5 MG TAB (IMMEDIATE RELEASE) PO PRN (11:08)
[2019-09-08] MEDS: PHENAZOPYRIDINE HCL 100 MG TAB PO PRN (13:43)
--- NOTE | 2019-09-08 14:08 | Discharge Summary ---
Date of Service September 08, 2019 Admission HPI Per Admitting Provider 54-year-old female who has a history of diabetes chronic back pain who presents with 2-day history of headache neck pain and vomiting. She is found be markedly hypokalemic with a potassium of 2.8 however she has leukocytosis and there was initially some concern of possible meningitis. A lumbar puncture was performed which showed elevation of white count normal glucose and elevated protein. Subsequently a concern for meningitis was undertaken the patient was placed in isolation she was given ampicillin vancomycin dexamethasone and ceftriaxone. She was asked to be admitted until culture results and bio fire analysis of her cerebrospinal fluid could be undertaken. Remainder of her laboratories including renal function hemoglobin and glucose were normal. The patient has a pending Lyme test also. Admission Exam Per Admitting Provider The patient appeared well nourished and normally developed. Vital signs as documented. Head exam is normocephalic atraumatic no scleral icterus Neck is without JVD, thyromegaly, or carotid bruits. Lungs are clear to auscultation, no focal loss of breath sounds Cardiac exam, Rhythm is regular.. No murmurs, rubs or gallops. Abdominal exam reveals normal bowel sounds, soft non tender, no masses Extremities are nonedematous and both pedal pulses are normal. Neurologic exam is alert and oriented, no focal loss of strength or sensation Skin is without bruises or rashes Psychologically is without concerns for anxiety or depression Principal Diagnosis 5mm obstructing LEFT calculi with hydroureteronephrosis Discharge Exam Constitutional WD/WN, vitals as above + obese; no acute distress Eyes + anicteric sclerae and PERRL ENMT external ear and nose normal, oropharynx normal Neck trachea midline, no thyromegaly Respiratory normal respiratory effort, lungs clear to auscultation Cardiovascular Rate/Rhythm: regular rate and regular rhythm Heart Sounds: no murmur Extremities: + edema Gastrointestinal (Abdomen) normal bowel sounds, soft, nontender, no hepatosplenomegaly Musculoskeletal no cyanosis or clubbing, extremities motor strength 5/5 Skin no rashes, warm and dry Neurologic PERRL, EOMI, accommodation nl, no face palsy, no dysarthria Psychiatric A+Ox3, euthymic affect Lymphatic no cervical or axillary lymphadenopathy Discharge Data Allergies Allergy/AdvReac Type Severity Reaction Status Date / Time celecoxib Allergy Intermediate RASH, Verified 09/03/19 15:21 TOLERATES ADVIL adhesive Allergy Unknown REDNESS Verified 09/03/19 15:21 WITH BANDAIDS Consultations 09/03/19 18:35 ED Decision to Admit Stat 09/06/19 15:11 Consult Urology Routine Procedures Performed Operation Date: 09/08/19 08:30 Actual Procedures p Ureteral Stent Insertion, Left(Left) - Usman Urban MD Ordered Studies 09/03/19 15:09 CT head/brain wo con Stat 09/03/19 15:11 CT cervical spine wo con Stat 09/03/19 16:44 FL lumbar puncture diagnostic Stat 09/06/19 10:00 US renal/blad retro comp Urgent 09/06/19 12:42 CT abdomen pelvis wo/w con Urgent 09/07/19 10:37 MR lumbar spine wo/w con Urgent 09/08/19 FL retrograde includes kub Routine Hospital Course (1) Hydronephrosis with obstructing calculus: Patient with reported hematuria x 1 month * Family hx renal ca (mother in her 60s) --> blood on UA. Urine cytology negative. Ordered given family hx renal ca in 60s and reported hematuria * Ordered Renal US -- showed L sided hydro * CT A/P with 5mm L obstructing calculus in left proximal ureter with mild left hydroureteronephrosis, additional punctate nonobstructing calculus L kidney. Of note, evidence of loosening of L1 interpedicular screws * Cr stable * Nephrology consulted * S/P ureteral stent insertion by Dr. Urban on 09/07. Received 6 days IV rocephin while inpatient as coverage for possible meningitis on admission. No further abx. * Discharged with flomax, pain medication and antiemetic * To have follow up with urology outpatient in 2 weeks (2) Hematuria: * Secondary to stone * Urine cytology negative (3) Lumbar stenosis: * Patient with history of chronic pain lumbar spinal stenosis s/p surgical repair [address] Smyth * Continue home gabapentin but changed to 300mg QAM and 600mg HS as that is how she takes at home and helps her get better sleep * Added tylenol, morphine prn * CT A/P --> with postoperative change from extensive lumbar spinal fusion surgery as above. There is evidence of loosening of the L1 interpedicular screws. The left interpedicular screw at L1 extends through the superior endplate and into the disc space. * Discussed case with ortho spine recreation professor -- rec follow up imaging but non- urgent. * MRI Lumbar Spine: * Status post posterior decompression and bilateral pedicle screw fusion from L1 through L5. Left L1 pedicle screw extends through the superior endplate into the disc. Evidence for loosening of these screws are depicted on CT. * 5.3 x 10.7 x 4 cm laminectomy bed fluid collection which is likely chronic. This favors a seroma. * Mild to moderate central canal stenosis at L5-S1. Mild central canal narrowing at T12-L1. Mild multilevel neural foraminal narrowing. * Recommended to follow up with orthopedics as outpatient (4) Meningitis: RULED OUT * Patient came to the emergency department with headache,neck pain, fevers at home, leukocytosis and vomiting * Lumbar puncture abnormal with elevated white count. Mildly elevated protein concern for meningitis was undertaken cultures were sent patient was initiated on Rocephin ampicillin vancomycin and dexamethasone in ER. * CSF Gram Stain without WBC or organisms seen/Culture NO GROWTH - FINAL * Of note, patient did receive dexamethasone prior to antibiotic administration and this could contribute to elevated WBCs in CSF on initial labs * --> discontinued Ampicillin, Vancomycin, Acyclovir (biofire, Lyme CSF negative) * Continued to cover for #1. Urine with mixed sonny, although had been on abx for days prior * COVID negative (5) Diabetes: * A1c 5.8 * Patient on Trulicity 1.5mg SQ weekly and Metformin 500mg PO daily * BSG ac/hs, ISS while inpatient * Resumed home medications on discharge (6) Hypertension: * Chronic. * Discharged home 12.5mg HCTZ daily (half tablet of what she has at home as she just filled 90 day supply and without insurance) due to edema as it was discontinued given hypokalemia * NEW -- Lisinopril 5mg PO daily given hx DM -- continued at discharge * Rec patient follow up with [facility] once prescription runs out about getting combination vasotec or similar if BP controlled and BMP stable on current combination * BP 124/82 * Repeat labs in 2-3 days to see if she will need supplemental potassium (7) Hypokalemia: * Markedly low K on admission at 2.8 --> given oral and IVF replacement. Mag 2.3 * K wnl on repeat even with HCTZ and MATHIEU as above for HTN * Repeat labs in 2-3 days to monitor K (8) Hypothyroidism: * Chronic. Last TSH 10/31/18 1.65--> currently 4.5, upper limit of normal but in setting of acute illness * Continued home levothyroxine 25mcg PO daily * Rec repeat TFT in 6-8 weeks outpatient and possibly need to increase dose of levothyroxine (9) UTI (urinary tract infection): * Patient with reported hematuria/dysuria and typically asymptomatic with previous UTIs * UA obtained -- 1+ leuk esterase, >30 WBC, 10-30 RBC, trace blood, 1+ protein, trace glucose, 1+ ketones, negative bacteria * Cultures with low counts probable skin sonny, HOWEVER was collected after already on abx for meningitis as above * Continued now on Rocephin (will continue to cover given hydro) --> received 6 days IV Rocephin. No further abx * Hepatitis panel negative. LFTs wnl (10) Abnormal finding of diagnostic imaging: See above (11) DVT prophylaxis: * SCDs will be employed for DVT prevention given recent lumbar puncture * Chemoproph held in light of LP and then for OR Discharged home with family. F/u with Urology 2 weeks as well as PCP. Repeat labs in 2-3 days and possible potassium supplementation if low Total Time Total Time Spent Total Time Spent (In Minutes): 70 Discharge Plan Discharge Items Patient Disposition: Home - Self-Care Reason For Visit: HEADACHE MENINGITIS RULE OUT Discharge Diagnosis: Left sided kidney stone with obstruction Goals: You have been hospitalized for an urgent problem which required surgery. During your stay at [facility], we have made an effort to correct the problem that brought you to the hospital while keeping you as comfortable as possible. Surgery and medications were used to bring your condition under control and your discharge instructions will include directions for any medications you should take after leaving the hospital. Please make sure to follow the advice of your surgeon regarding follow up with the surgeon and with your primary care provider. Activity: Resume your previous activity Non-emergency contact: Primary Care Provider and Urologist Call non-emergency contact if: you have any medication questions, your pain is not controlled and you have a fever Follow-up/Referrals: Cornelius Sosa MD [Physician] - 09/23/19 3:10 pm (Please, follow up at [facility] Urology Office with Dr. Sosa on MondaySeptember 22 at 3:20 pm (arrive 3:10 pm). *The office is located at [address] in [place]. If you need to change this appointment, call the office at [phone].) Richi Fontenot DO [Surgeon] - (1 month) [facility],Medicine [Primary Care Provider] - (Please, follow up at [facility] in Medicine. *Call the office to make an appointment, the phone number is [phone].) Diet: Carb Consistent or DM2 and Heart Healthy Ambulatory Orders: Basic Metabolic Panel (Routine) Timeframe: 3 Days Location: Determined by Patient Ordered By: Gwendolyn Palafox Attending Provider Instructions: You have been hospitalized and testing was done initially for meningitis given symptoms. You were treated with antibiotics and antivirals and this was RULED OUT. Given your hematuria and urinary discomfort, imaging was done and you were found to have a left sided kidney stone and Urology was consulted. You were taken to the operating room for a stent placement by Dr. Urban. It is recommended that you follow up with his office in the next two weeks for stent removal. They will contact you with an appointment time. You have been sent prescriptions for pain medication as well as Flomax. Please utilize only as needed and use Tylenol for all other pain. Please make sure not to exceed 3,000mg in a 24 hour period of time as discussed. Please avoid NSAIDs (ibuprofen, Aleve, NAPROXEN) for the next two week. You potassium was on the lower end while you have been in the hospital, which is likely initially related to your acute illness, but may continue to be low given your blood pressure medication, hydrochlorothiazide. It is recommended that you continue at half your usual dose at discharge. As discussed, given you already have a 90 day supply of the 25mg tablets, you may cut this in half and take with the new medication, lisinopril 5mg by mouth daily. You have been provided a lab slip to have repeat renal function testing in the next 2-3 days to monitor your potassium on this combination. There is a combination product that you may be continued on as prescribed by your PCP Dr. Delcid at follow up. Please see him in the next 5-7 days to monitor your progress. Please continue to remain well hydrated and strain your urine. As discussed lemonade can be sometimes helpful at assisting to dissolve stones, and you have multiple smaller stones that are non-obstructing at this time. Urine cytology was done given family history of cancer and this was negative. Imaging of your back was done given surgery and pain since 3 years ago. This did reveal a loosening of one of the screws, but imaging was reviewed with on-call ortho spine surgeon and he recommended outpatient follow-up at this time and conservative management. Please return to the emergency room for any worsening pain, fevers, or for any symptoms that are concerning for you. It has been a pleasure being a part of the care team providing for you while you have been in the hospital. Take care! Pending Studies at Discharge: No Stand-Alone Forms: My [facility], Opioid Pain Management, Smoking Ce ssation Medications and DC Order Prescriptions: New tamsulosin 0.4 mg Capsule 0.4 mg PO HS 4 Days Qty: 4 RF: 0 lisinopril [Zestril] 5 mg Tablet 5 mg PO QAM 30 Days Qty: 30 RF: 0 oxycodone 5 mg capsule 5 mg PO Q6H PRN (Reason: pain) Qty: 8 RF: 0 ondansetron 4 mg film 4 mg PO Q8H PRN (Reason: nausea and vomiting) 4 Days Qty: 12 RF: 0 Continued metformin 500 mg Tablet 500 mg PO QAM RF: 0 levothyroxine 25 mcg Tablet 25 mcg PO QAM RF: 0 gabapentin 300 mg Tablet Extended Release 24 Hr 300 - 600 mg PO BID RF: 0 Trulicity 1.5 mg/0.5 mL Pen Injector 1.5 mg SUBCUT WK RF: 0 Changed hydrochlorothiazide 25 mg Tablet 12.5 mg PO QAM Qty: 0 RF: 0 Discontinued naproxen 375 mg Tablet 375 mg PO BID RF: 0 Discharge Orders: Discharge Order (Routine); Ordered 09/08/19 Ordered By: Karuna Ureña/Other Patient Handouts: Having a Ureteral Stent, Cystoscopy Admission Data Admit Date/Time: 09/03/19 18:55 Attending Provider: Karuna Torres Admit Provider: Sal Wilkinson Primary Care Provider: [facility],Medicine Other Providers: Sal Wilkinson ; Usman Urban Other Interventions: Discharge Summary Assessment (RN) Last Done: 09/08/19 15:43 DC Date/Time DO NOT enter until pt leaves facility: 09/08/19 16:12 Supervising Physician Co-Signing Physician Notes PA Supervision Note: I personally saw and examined the patient. I verified all choudhury points and agree with SWATHI Anderson with the following exceptions and/or additions: Pt feeling much better now s/p left ureteral stent placement. Denies any further acute issues. Feels ready to go home. Vitals reviewed NAD, obese RRR no mgr CTAB no wcr Abd +BS soft NT ND, obese, mild +L CVA tenderness Ext 2+ pitting edema to knees bilat chronic for her Skin diaphoretic on feet and hands only 54 yo female here with chills, headache, neck pain, left flank pain and left obstructing renal stone. Worked up for meningitis and negative, but likely had UTI and left sided stone. Ur culture collected after on abx therapy so not reliable. Has completed 6 days of IV abx and stent placed, no further abx needed, nontoxic, doing very well Medically stable for discharge Coding Level of Care Code D/C Day Management >30 mins Diagnoses Hydronephrosis with obstructing calculus N13.2 Hematuria R31.9 Lumbar stenosis M48.061 Meningitis G03.9 Diabetes E11.9 Hypertension I10 Hypokalemia E87.6 Hypothyroidism E03.9 UTI (urinary tract infection) N39.0 Abnormal finding of diagnostic imaging R93.89 DVT prophylaxis Z29.9
--- NOTE | 2019-09-17 12:04 | Coding Query ---
BMI To promote full compliance with coding requirements relating to patient care, physician participation is requested in all cases of seat coverer uncertainty. Please assist us with the question(s) below: Please place an X within the parenthesis (x). If other, please document: BMI 43.2 was documented in this record for this patient and the ER documents, " Given her elevated BMI and postsurgical change to the lumbar spine, radiology was consulted for LP under fluoroscopy.". If the BMI is significant, please check the box that provides a more specific associated diagnosis: ( ) Overweight/Obese ( ) Obesity (x ) Morbid obesity ( ) Obesity Hypoventilation Syndrome (OHS) ( ) Heathy weight, not significant ( ) Underweight/Thin ( ) Other, please specify Thank you Xiao OZUNA
== END 2019-09-08 16:12 | disposition home or self-care (01) | DRG 660 ==
LOC: ED 13:18 → 3E 18:55 → SUATTDRO 18:55 → 3E 20:53 → 3W 09-04 17:07

== ENCOUNTER 2022-04-21 19:56 | Inpatient (IN) ==
[2022-04-21 21:08] LABS: Basophils # (auto) 0.07 K/uL (0-0.2); Basophils % (auto) 0.5 %; Eosinophils # (auto) 0.17 K/uL (0-0.50); Eosinophils % (auto) 1.2 %; Hematocrit (blood only) 41.2 % (37.0-47.0); Hemoglobin 14.3 g/dl (12.0-16.0); Immature Granulocytes # (auto) 0.06 K/uL (0.01-0.20); Immature Granulocytes % (auto) 0.4 %; Lymphocytes # (auto) 1.52 K/uL (1.2-3.4); Lymphocytes % (auto) 10.5 %; Mean Corpuscular Hemoglobin 32.3 pg (25.0-34.0); Mean Corpuscular Hgb Conc 34.7 g/dL (32.0-36.0); Mean Platelet Volume 9.6 fL (9.4-12.4); Monocytes # (auto) 1.31 K/uL (0.11-0.59); Monocytes % (auto) 9.1 %; Neutrophils # (auto) 11.31 K/uL (1.40-6.50); Neutrophils % (auto) 78.3 %; Platelet Count 286 K/uL (130-400); RDW Coefficient of Variation 12.2 % (11.5-14.5); RDW Standard Deviation 42.2 fL (36.4-46.3); Red Blood Count 4.43 M/uL (4.20-5.40); White Blood Count 14.44 K/ul (4.8-10.8)
[2022-04-21 21:15] LABS: Appearance Urine Clear (Clear); Bacteria Urine Automated Negative (Negative); Bilirubin Urine Negative (Negative); Blood Urine 1+ (Negative); Cast Urine Automated 0 /lpf (0-5); Color Urine Yellow; Glucose Urine UA Negative (Negative); Ketones Urine Negative (Negative); Leukocyte Esterase Urine 1+ (Negative); Nitrite Urine Negative (Negative); Protein Urine Negative (Negative); Specific Gravity Urine 1.012 (1.000-1.030); Urobilinogen Urine Negative (Negative); WBC Urine Automated >30 /hpf (0-5); pH Urine 8.5 (4.5-7.5)
[2022-04-21 21:25] LABS: Alanine Aminotransferase 10 U/L (7-52); Albumin Globulin Ratio 1.1 (0.9-2); Alkaline Phosphatase 52 U/L (34-104); Anion Gap 8 (3-11); Aspartate Aminotransferase 12 U/L (13-39); BUN Creatinine Ratio 20.3 (10-20); Bilirubin,Total 1.2 mg/dl (0.2-1.0); Blood Urea Nitrogen 15 mg/dl (6-23); Calcium 9.7 mg/dl (8.5-10.1); Carbon Dioxide 28 mmol/L (21-32); Chloride 101 mmol/L (98-107); Est GFR (Non-African American) 90.6 ml/min; Globulin 3.8 gm/dl (2.5-4.0); Glucose 141 mg/dl (70-99(Fasting)); Lipase 14 U/L (11-82); Potassium 3.2 mmol/L (3.5-5.1); Sodium 137 mmol/L (136-145); Total Protein 7.8 gm/dl (6.0-8.3)
[2022-04-21] MEDS ORDERED: SODIUM CHLORIDE 0.9% 1000ML 1,000 ML IV ONE (21:27)
[2022-04-21] MEDS ORDERED: cefTRIAXone SODIUM 2,000 MG/70 ML BAG IV STA (21:27)
[2022-04-21] MEDS ORDERED: ACETAMINOPHEN 1,000 MG/100 ML VIAL IV STA (21:37)
--- NOTE | 2022-04-21 22:06 | Emergency Department Note ---
History of Present Illness General Chief complaint: Urinary Symptoms Stated complaint: POSSIBLE UTI Time Seen by Provider: 04/21/22 21:26 History of Present Illness Maximum Pain Intensity: 5 This 56-year-old female who had a ureteral stent removed yesterday presents to the ER complaining of fever, chills, back pain and urinary symptoms. Patient is concerned she has a urine infection. No history of pyelonephritis or abscess. Patient has chest pain, dyspnea, vomiting, diarrhea, cough, congestion. Home Medications Medication Instructions Recorded Confirmed Type gabapentin 300 mg tablet,extended 300 - 600 mg PO BID 09/03/19 04/11/22 History release 24 hr metformin 500 mg tablet 500 mg PO QAM 09/03/19 04/11/22 History hydrochlorothiazide 25 mg tablet 50 mg PO QAM 09/18/20 04/11/22 History naproxen 375 mg tablet 375 mg PO BID 09/18/20 04/11/22 History sertraline 50 mg tablet (Zoloft) 50 mg PO HS 09/18/20 04/11/22 History Medical Marijuana 1 dose PO BID PRN Pain 02/01/21 04/11/22 History acetaminophen 325 mg tablet 325 mg PO QID PRN Pain 02/01/21 04/11/22 History (Tylenol) epinephrine 0.3 mg/0.3 mL 0.3 mg (0.3 mL) IM Q4H PRN 05/13/21 04/11/22 Rx injection, auto-injector (EpiPen anaphylaxis #2 ea 2-Fredrick) levothyroxine 25 mcg tablet 25 mcg PO QAM 05/19/21 04/11/22 History (Synthroid) valacyclovir 1 gram tablet 1,000 mg PO Q12H PRN cold sores 06/30/21 04/11/22 History (Valtrex) losartan 25 mg tablet 25 mg PO QAM 08/12/21 04/11/22 History nitrofurantoin 100 mg PO BID 7 days #14 caps 04/07/22 04/11/22 Rx monohydrate/macrocrystals 100 mg capsule (Macrobid) dulaglutide 0.75 mg/0.5 mL 0.75 mg subcut WK 04/11/22 04/11/22 History subcutaneous pen injector (Trulicity) famotidine 40 mg tablet (Pepcid) 40 mg PO DAILY 04/11/22 04/11/22 History oxycodone-acetaminophen 7.5 mg-325 1 tab PO Q8H PRN pain #7 tabs 04/11/22 04/11/22 Rx mg tablet (Percocet) phenazopyridine 200 mg tablet 200 mg PO Q8H PRN pain #10 tabs 04/11/22 04/11/22 Rx (Pyridium) tamsulosin 0.4 mg capsule 0.4 mg PO HS #30 caps 04/11/22 04/11/22 Rx Allergies Allergy/AdvReac Type Severity Reaction Status Date / Time celecoxib Allergy Intermediate RASH, Verified 04/11/22 07:05 TOLERATES ADVIL adhesive Allergy Unknown REDNESS Verified 04/11/22 07:05 WITH BANDAIDS latex Allergy Rash Verified 04/11/22 07:05 Past Med/Surg History Medical History Anxiety Diabetes NIDDM Hyperlipidemia Hypertension Hypothyroidism Kidney stones Morbid obesity with BMI of 45.0-49.9, adult Surgical History Family history of reaction to anesthesia Mother has nausea after anesthesia H/O spinal fusion x2 lumbar History of section x2 History of cholecystectomy History of colonoscopy History of cystoscopy History of dilation and curettage History of foot surgery right History of hysteroscopy with endometrial ablation History of lithotripsy History of partial hysterectomy History of total knee replacement left 2014 S/P epidural steroid injection Family History Mother Breast cancer Diabetes Social History Smoking Status: Never smoker Tobacco Type: Cigarettes Cigarettes Per Day: few cigs per week; Second Hand Exposure: No; Hx Alcohol Use: No Hx Substance Use: Yes (medical marijuana) Last Used Substance: Days (ago) Substance Use Type Other:: has card but does not use Preferred Language: Syriac Communication Ability: Effective Coach Operator Required: No Beliefs That Will Affect Care: None Current Living Situation: Spouse Current Living Situation Comment: lives with Feels Safe at Home: Yes Assistive Devices: Glasses Review of Systems A total of 10 systems reviewed and were otherwise negative Physical Exam Vital Signs Vital Signs - 24 hr 04/21/22 20:14 04/21/22 21:27 Temperature 36 C L 37.7 C H Temperature Source Temporal Artery Scan Oral Pulse Rate 96 H Respiratory Rate 18 Respiratory Effort / Characteristics Non-Labored Spontaneous Respiratory Depth Normal Blood Pressure 138/75 Blood Pressure Mean 96 Blood Pressure Position Sitting Pulse Oximetry 92 Oxygen Delivery Method Room Air Sepsis Recent Fever Within 48 Hours No Sepsis New/Unexplained Change in Mental Status No Sepsis Action Taken by Nursing No Action Required VITALS: Vitals are noted on the nurse's note and reviewed by myself. Vital signs temperature 99.3 orally done by myself at bedside. GENERAL: Pleasant female, in no acute distress, nondiaphoretic, well-developed well-nourished. SKIN: The skin was without rashes, erythema, edema, or bruising. There is no tenting of the skin. Capillary reflex less than 2 seconds. HEAD: Normocephalic atraumatic. EARS: External auditory canals clear, EYES: Pupils equal round and reactive to light and accommodation. Conjunctivae without injection, sclerae without icterus. Extraocular movements intact. NOSE: Patent, turbinates without inflammation or discharge. MOUTH: Mucous membranes moist. Pharynx without erythema or exudate. Uvula midline. Airway patent. Tongue does not deviate. NECK: Supple without nuchal rigidity. No lymphadenopathy. No thyromegaly. Cervical spine is nontender. No JVD. HEART: Regular rate and rhythm LUNGS: Clear to auscultation bilaterally without wheezes, rales or rhonchi. No retractions or accessory muscle use. ABDOMEN: Positive bowel sounds x 4. Normal tympanic percussion. Soft, bilateral CVA tenderness, tender lower abdomen, without masses or organomegaly. Duong sign negative. No guarding or rebound tenderness. MUSCULOSKELETAL: No muscle atrophy, erythema, or edema noted. NEURO: Patient was alert and oriented to person place and time. Normal sens ation to light and sharp touch. No focal neurological deficits. Course Administered Medications Discontinued Medications Ceftriaxone Sodium (Rocephin) 2,000 mg in 70 mls @ 140 mls/hr IV NOW STA Stop: 04/21/22 21:56 Last Admin: 04/21/22 22:38 Dose: 140 mls/hr Documented By: CRISS Sodium Chloride (Nss 1000ml) 1,000 mls @ 999 mls/hr IV .Q1H1M ONE Stop: 04/21/22 22:27 Last Admin: 04/21/22 22:38 Dose: 999 mls/hr Documented By: CRISS Acetaminophen (Ofirmev) 1,000 mg in 100 mls @ 400 mls/hr IV NOW STA Stop: 04/21/22 21:51 Last Admin: 04/21/22 22:38 Dose: 400 mls/hr Documented By: CRISS Ioversol (Optiray 350 100ml) 82 ml IV ONCE ONE Stop: 04/21/22 22:09 Last Admin: 04/21/22 22:09 Dose: 82 ml Documented By: CHRIS Medical Decision Making Medical Records Attestation: I reviewed the patient's medical records. Home Medications Current Medication List: was personally reviewed by me Laboratory Data Attestation: I reviewed the patient's lab results. 04/21/22 20:50 04/21/22 20:50 Lab Results 04/21/22 04/21/22 04/21/22 Range/Units 20:40 20:50 20:50 WBC 14.44 H (4.8-10.8) K/ul RBC 4.43 (4.20-5.40) M/uL Hgb 14.3 (12.0-16.0) g/dl Hct 41.2 (37.0-47.0) % MCV 93.0 (80.0-100.0) fL MCH 32.3 (25.0-34.0) pg MCHC 34.7 (32.0-36.0) g/dL RDW Std Deviation 42.2 (36.4-46.3) fL RDW Coeff of Leo 12.2 (11.5-14.5) % Plt Count 286 (130-400) K/uL MPV 9.6 (9.4-12.4) fL Immature Gran % (Auto) 0.4 % Neut % (Auto) 78.3 % Lymph % (Auto) 10.5 % [place] % (Auto) 9.1 % Eos % (Auto) 1.2 % Baso % (Auto) 0.5 % Neut # (Auto) 11.31 H (1.40-6.50) K/uL Lymph # (Auto) 1.52 (1.2-3.4) K/uL [place] # (Auto) 1.31 H (0.11-0.59) K/uL Eos # (Auto) 0.17 (0-0.50) K/uL Baso # (Auto) 0.07 (0-0.2) K/uL Immature Gran # (Auto) 0.06 (0.01-0.20) K/uL Sodium 137 (136-145) mmol/L Potassium 3.2 L (3.5-5.1) mmol/L Chloride 101 (98-107) mmol/L Carbon Dioxide 28 (21-32) mmol/L Anion Gap 8 (3-11) BUN 15 (6-23) mg/dl Creatinine 0.74 (0.6-1.2) mg/dl Est Cr Clr Drug Dosing Not Reportable Est GFR ( Amer) 105.0 ml/min Est GFR (Non-Af Amer) 90.6 ml/min BUN/Creatinine Ratio 20.3 H (10-20) Glucose 141 H (70-99(Fasting)) mg/dl Lactate (0.4-2.0) mmol/L Calcium 9.7 (8.5-10.1) mg/dl Total Bilirubin 1.2 H (0.2-1.0) mg/dl AST 12 L (13-39) U/L ALT 10 (7-52) U/L Alkaline Phosphatase 52 (34-104) U/L Total Protein 7.8 (6.0-8.3) gm/dl Albumin 4.0 (3.4-5.0) gm/dl Globulin 3.8 (2.5-4.0) gm/dl Albumin/Globulin Ratio 1.1 (0.9-2) Lipase 14 (11-82) U/L Urine Color Yellow Urine Appearance Clear (Clear) Urine pH 8.5 H (4.5-7.5) Ur Specific [place] 1.012 (1.000-1.030) Urine Protein Negative (Negative) Urine Glucose (UA) Negative (Negative) Urine Ketones Negative (Negative) Urine Blood 1+ H (Negative) Urine Nitrite Negative (Negative) Urine Bilirubin Negative (Negative) Urine Urobilinogen Negative (Negative) Ur Leukocyte Esterase 1+ H (Negative) Urine WBC (Auto) >30 H (0-5) /hpf Urine RBC (Auto) 5-10 H (0-4) /hpf U Hyaline Cast (Auto) 0 (0-5) /lpf U Epithel Cells (Auto) 5-10 H (0-5) /lpf Urine Bacteria (Auto) Negative (Negative) 04/21/22 Range/Units 22:41 WBC (4.8-10.8) K/ul RBC (4.20-5.40) M/uL Hgb (12.0-16.0) g/dl Hct (37.0-47.0) % MCV (80.0-100.0) fL MCH (25.0-34.0) pg MCHC (32.0-36.0) g/dL RDW Std Deviation (36.4-46.3) fL RDW Coeff of Leo (11.5-14.5) % Plt Count (130-400) K/uL MPV (9.4-12.4) fL Immature Gran % (Auto) % Neut % (Auto) % Lymph % (Auto) % [place] % (Auto) % Eos % (Auto) % Baso % (Auto) % Neut # (Auto) (1.40-6.50) K/uL Lymph # (Auto) (1.2-3.4) K/uL [place] # (Auto) (0.11-0.59) K/uL Eos # (Auto) (0-0.50) K/uL Baso # (Auto) (0-0.2) K/uL Immature Gran # (Auto) (0.01-0.20) K/uL Sodium (136-145) mmol/L Potassium (3.5-5.1) mmol/L Chloride (98-107) mmol/L Carbon Dioxide (21-32) mmol/L Anion Gap (3-11) BUN (6-23) mg/dl Creatinine (0.6-1.2) mg/dl Est Cr Clr Drug Dosing Est GFR ( Amer) ml/min Est GFR (Non-Af Amer) ml/min BUN/Creatinine Ratio (10-20) Glucose (70-99(Fasting)) mg/dl Lactate 0.7 (0.4-2.0) mmol/L Calcium (8.5-10.1) mg/dl Total Bilirubin (0.2-1.0) mg/dl AST (13-39) U/L ALT (7-52) U/L Alkaline Phosphatase (34-104) U/L Total Protein (6.0-8.3) gm/dl Albumin (3.4-5.0) gm/dl Globulin (2.5-4.0) gm/dl Albumin/Globulin Ratio (0.9-2) Lipase (11-82) U/L Urine Color Urine Appearance (Clear) Urine pH (4.5-7.5) Ur Specific [place] (1.000-1.030) Urine Protein (Negative) Urine Glucose (UA) (Negative) Urine Ketones (Negative) Urine Blood (Negative) Urine Nitrite (Negative) Urine Bilirubin (Negative) Urine Urobilinogen (Negative) Ur Leukocyte Esterase (Negative) Urine WBC (Auto) (0-5) /hpf Urine RBC (Auto) (0-4) /hpf U Hyaline Cast (Auto) (0-5) /lpf U Epithel Cells (Auto) (0-5) /lpf Urine Bacteria (Auto) (Negative) Imaging Data Attestation: I personally reviewed and interpreted this imaging study as follows: MDM Narrative Prior records/ancillary studies reviewed. Triage Nursing notes reviewed. Additional history obtained from nursing. The patient's history was concerning for abdominal pain. Differential diagnosis: Etiologies such as appendicitis, diverticulitis, PUD, biliary pathology, UTI, pancreatitis, obstruction, mesenteric ischemia, aortic pathology, infections, inflammatory bowel disease, renal colic, as well as others were entertained. Physical examination findings: As above. ER treatment provided: An order was placed for continuous cardiac monitoring. The monitor shows a rate of 60-1 50 with a sinus rhythm per my Independent interpretation. IV fluids Tylenol and Rocephin were ordered On reassessment the patient felt better. Diagnostics interpreted by me: The labs Independently Interpreted by myself revealed leukocytosis, urine concerning for infection and sent for culture. Prior urine culture was reviewed NASIM TREJO [id number] Allergy/Adv: celecoxib, adhesive, latex (More) Close Micro Urine Specimen 04/21/22 Urine Culture - Pending Micro Urine Specimen 04/05/22 Urine Culture - Final Micro Urine Specimen 01/31/22 Urine Culture - Final Micro Urine Specimen 11/02/21 Urine Culture - Final Micro Urine Specimen 01/22/21 Urine Culture - Final Micro Urine Specimen 09/16/19 Urine Culture - Final Micro Urine Specimen 09/04/19 Urine Culture - Final Micro Body Fluid Specimen 09/03/19 Gram Stain - Final [facility] [address] [place] [address] / Director: Mo Gordillo M.D. Clinical Laboratory Report Name: NASIM TREJO Acct: [id number] Status: JONNY SALES : 1965 [facility] [place] Date: 04/05/22 Age: 56 Sex: F Dis Date: Loc: Laboratory Main [place] Spec: [id number] Collected: 04/05/22 Received: 04/05/[address]: Keegan Byrd, II, DO Source: Urine,Clean Catch OV Order: Ordered: Urine Culture Procedure Result Verified Site Urine Culture Final 04/07/22-1040 Organism 1 Escherichia coli [place] Count >100,000 CFU/ml Sens Sensitivities to Follow +Mix Urine Plus Moderate Counts of Other Mixed Connie E coli RX M.I.C. --- --------- Amox/Clav S <=8/4 Ampicillin S <=8 Amp/Sul S <=8/4 Cefazolin S <=2 Cefepime S <=2 Ceftriaxone S <=1 Ciprofloxacin S <=0.25 Ertapenem S <=0.5 Gentamicin S <=4 Levofloxacin S <=0.5 Meropenem S <=1 Nitrofurantoin S <=32 Tobramycin S <=4 Trimeth/Sulfa S <=2/38 Pip/Tazo S <=16 S = SENSITIVE I = INTERMEDIATE R = RESISTANT Imaging studies: CT ABDOMEN & PELVIS With Contrast: Hepatic steatosis. Cholecystectomy. Normal spleen, adrenal glands, and pancreas. Nonobstructing 2 mm left lower pole renal calculus. Normal urinary bladder. Normal CT appearance of the uterus. Diverticulosis, without acute diverticulitis. No small bowel obstruction. Normal appendix. Multilevel posterior lumbar fusion. IMPRESSION: Mild patchy effort, the left kidney, concerning for pyelonephritis. Nonobstructing 2 mm left lower pole renal calculus. Radiologist: Carlos Amaya MD Consultation: A consultation was placed with the hospitalist. The case was discussed and diagnostics were reviewed. The patient was evaluated in the ER for further treatment. Exam and history seem consistent with pyelonephritis. Labs and diagnostics were independently interpreted by myself. Radiology read the CAT scan. Prior urine culture was reviewed. Patient was started on antibiotics. She had low-grade fever. Blood cultures were sent. She had leukocytosis. Medicine is consulted and she will be evaluated for possible admission. By the evaluation outlined above emergent etiologies such as appendicitis, diverticulitis, PUD, biliary pathology pancreatitis, obstruction, mesenteric ischemia, aortic pathology, inflammatory bowel disease, renal colic, as well as others were deemed relatively unlikely. The pt informed about the findings as listed above. All questions were answered and pleased with the treatment. the chart was completed utilizing [employer] Speech voice recognition software. Grammatical errors, random word insertions, pronoun errors, and incomplete sentences are an occassional consequence of this system due to software limitations, ambient noise, and hardware issues. Any formal questions or concerns about the content, text, or information contained within the body of this dictation should be directly addressed to the physician design assistant for clarification. A Impression & Plan Pyelonephritis Discharge Plan Visit Data Chief Complaint: Urinary Symptoms Stated Complaint: POSSIBLE UTI ED Provider: Kaushik Hansen ED Midlevel Provider: Gini Inman Discharge Problem: Pyelonephritis Patient Disposition: Admitted As Inpatient Condition: Good Forms Stand Alone Forms: [facility] [employer] Prescriptions Prescriptions: No Action levothyroxine [Synthroid] 25 mcg tablet 25 mcg PO QAM valacyclovir [Valtrex] 1 gram tablet 1,000 mg PO Q12H PRN (Reason: cold sores) nitrofurantoin monohyd/m-cryst [Macrobid] 100 mg capsule 100 mg PO BID 7 Days Qty: 14 0RF Rx Instructions: must administer with a meal/food losartan 25 mg tablet 25 mg PO QAM metformin 500 mg Tablet 500 mg PO QAM gabapentin 300 mg Tablet Extended Release 24 Hr 300 - 600 mg PO BID Rx Instructions: Take 300mg in the AM Take 600mg in the PM acetaminophen [Tylenol] 325 mg Tablet 325 mg PO QID PRN (Reason: Pain) Medical Marijuana 1 dose PO BID PRN (Reason: Pain) epinephrine [EpiPen 2-Fredrick] 0.3 mg/0.3 mL auto-injector 0.3 mg IM Q4H PRN (Reason: anaphylaxis) Qty: 2 0RF naproxen 375 mg Tablet 375 mg PO BID hydrochlorothiazide 25 mg tablet 50 mg PO QAM sertraline [Zoloft] 50 mg Tablet 50 mg PO HS phenazopyridine [Pyridium] 200 mg tablet 200 mg PO Q8H PRN (Reason: pain) Qty: 10 0RF Rx Instructions: POST OP MED tamsulosin 0.4 mg capsule 0.4 mg PO HS Qty: 30 0RF Rx Instructions: POST OP MED oxycodone-acetaminophen [Percocet] 7.5-325 mg tablet 1 tab PO Q8H PRN (Reason: pain) Qty: 7 0RF Rx Instructions: POST-OP MED famotidine [Pepcid] 40 mg tablet 40 mg PO DAILY Trulicity 0.75 mg/0.5 mL Pen Injector 0.75 mg SUBCUT WK Referrals Referrals: Nathan Sosa MD [Primary Care Provider] -
[2022-04-21] MEDS ORDERED: OPTIRAY 350 100ml IV ONE (22:08)
[2022-04-21] MEDS ORDERED: TAMSULOSIN HCL 0.4 MG CAP PO PRN (23:29)
--- NOTE | 2022-04-21 23:37 | History & Physical Report ---
Date of Service April 21, 2022 Assessment & Plan (1) Pyelonephritis of left kidney: (2) Lumbar stenosis: (3) Diabetes: (4) Hypokalemia: (5) UTI (urinary tract infection): (6) Hydronephrosis, left: (7) Hypertension: (8) Hypothyroidism: Plan Left sided pyelonephritis/status post left ureteral stent placement on 04/11 and stent removal on 04/18/2022- Follow urine culture and sensitivity Ceftriaxone 2 g IV daily Received 2 L normal saline in the ED NSS + KCl 20 mEq at 100 mils per hour Acetaminophen 650 mg p.o. every 6 hours as needed mild pain or fever Oxycodone/acetaminophen 5/325, 1 p.o. every 8 hours as needed moderate pain Continue tamsulosin Consult urology Diabetes mellitus- Hold dulaglutide and metformin Placed on Accu-Cheks with NovoLog SSI Hypertension- Hold HCTZ due to hypokalemia Continue losartan 25 mg every morning GERD- Continue famotidine 40 mg daily Anxiety- Continue sertraline 50 mg at bedtime History of Present Illness Chief Complaint: The patient presents to the emergency department with complaint of fevers, chills, left flank pain and urinary discomfort Primary Care Provider: Nathan Sosa The patient is a 56-year-old female with a past medical history including hypothyroidism, hypertension, diabetes mellitus, kidney stones, vitamin D deficiency, UTI, right hydronephrosis, right ureteral calculus and meningitis. The patient underwent a left ureteroscopy, laser lithotripsy, stone basket extraction, retrograde pyelogram and stent placement on 04/11/2022. She then underwent a stent removal on 04/18/2022. She reports that since that time she has developed the above symptoms of fever, chills, left flank pain and urinary discomfort. CT scan of the abdomen and pelvis in the emergency department this evening showed hepatic steatosis, and findings consistent with left pyelonephritis. From the ED the patient received the following: Ceftriaxone 2 g IV, normal saline 1 L, and Tylenol 1 g IV. Significant laboratories: WBC 14.44, potassium 3.2 and glucose 141. Allergies Allergy/AdvReac Type Severity Reaction Status Date / Time celecoxib Allergy Intermediate RASH, Verified 04/21/22 23:14 TOLERATES ADVIL latex Allergy Intermediate Rash Verified 04/21/22 23:14 adhesive Allergy Mild REDNESS Verified 04/21/22 23:14 WITH BANDAIDS Home Medications Medication Instructions Recorded Confirmed Type gabapentin 300 mg tablet,extended See Rx Instructions .Route .COMPLEX 09/03/19 04/21/22 History release 24 hr metformin 500 mg tablet 500 mg PO QAM 09/03/19 04/21/22 History hydrochlorothiazide 25 mg tablet 50 mg PO QAM 09/18/20 04/21/22 History naproxen 375 mg tablet 375 mg PO BID 09/18/20 04/21/22 History Medical Marijuana 1 dose PO BID PRN Pain 02/01/21 04/21/22 History epinephrine 0.3 mg/0.3 mL 0.3 mg (0.3 mL) IM Q4H PRN 05/13/21 04/21/22 Rx injection, auto-injector (EpiPen anaphylaxis #2 ea 2-Fredrick) levothyroxine 25 mcg tablet 25 mcg PO QAM 05/19/21 04/21/22 History (Synthroid) valacyclovir 1 gram tablet 1,000 mg PO Q12H PRN cold sores 06/30/21 04/21/22 History (Valtrex) losartan 25 mg tablet 25 mg PO QAM 08/12/21 04/21/22 History dulaglutide 0.75 mg/0.5 mL 0.75 mg subcut WK 04/11/22 04/21/22 History subcutaneous pen injector (Trulicity) famotidine 40 mg tablet (Pepcid) 40 mg PO DAILY 04/11/22 04/21/22 History phenazopyridine 200 mg tablet 200 mg PO Q8H PRN pain #10 tabs 04/11/22 04/21/22 Rx (Pyridium) oxycodone-acetaminophen 5 mg-325 1 tab PO Q8H PRN Pain 04/21/22 04/21/22 History mg tablet sertraline 50 mg tablet 50 mg PO HS 04/21/22 04/21/22 History tamsulosin 0.4 mg capsule 0.4 mg PO DAILY PRN NEEDED PER 04/21/22 04/21/22 History PT. Past Med/Surg History Medical History (Updated 04/22/22 @ 04:37 by Thomas Kumar MD) Anxiety Diabetes NIDDM Hyperlipidemia Hypertension Hypothyroidism Kidney stones Morbid obesity with BMI of 45.0-49.9, adult Surgical History Family history of reaction to anesthesia Mother has nausea after anesthesia H/O spinal fusion x2 lumbar History of section x2 History of cholecystectomy History of colonoscopy History of cystoscopy History of dilation and curettage History of foot surgery right History of hysteroscopy with endometrial ablation History of lithotripsy History of partial hysterectomy History of total knee replacement left 2014 S/P epidural steroid injection Family History Mother Breast cancer Diabetes Social History Smoking Status: Former smoker Tobacco Type: Cigarettes Cigarettes Per Day: few cigs per week; Second Hand Exposure: No; Hx Alcohol Use: Yes Alcohol type: beer, wine and hard liquor Hx Substance Use: No Preferred Language: Indian Communication Ability: Effective Infrastructure Engineer Required: No Beliefs That Will Affect Care: None Current Living Situation: Spouse Current Living Situation Comment: lives with Other Information That Helps Us Care for You: No Feels Safe at Home: Yes Safety Concerns: Feels Safe At This Time Assistive Devices: None Review of Systems Review of Systems: The patient denies chest pain, palpitations, shortness of breath, dyspnea on exertion, cough, lower extremity swelling, sore throat, vomiting, diarrhea , constipation, blood in stool, lightheadedness, dizziness, headache, memory loss, loss of consciousness, rash, abnormal bruising or bleeding, imbalance, focal or generalized weakness, numbness or tingling in arms or legs, generalized arthralgias or myalgias, neck pain, or night sweats. The review of systems is otherwise negative other than for that already noted above, and at least 10 systems have been reviewed. Physical Exam Physical Exam: The patient is awake, alert and oriented 3, well developed and well nourished, normocephalic and atraumatic, lying in bed and in no acute distress. HEENT--PERRL, EOMI, mucous membranes and oropharynx mildly dry. Neck--supple. No JVD. No bruits. Thyroid normal, trachea midline, no adenopathy. Heart--normal S1 and S2. No murmurs, rubs or gallops. Lungs--clear bilaterally, no respiratory distress, no accessory muscle use. Abdomen--normal bowel sounds and soft. Nontender. Nondistended, no hernias or masses, no organomegaly. Extremities--no cyanosis or clubbing. No edema. Dermatologic--normal skin turgor, normal color, no abnormal lymph nodes, no rash. Neurologic--cranial nerves II through XII grossly intact. Rheumatologic--normal range of motion. Psychiatric--normal affect. Results & Data Results & Data ([facility]) Vital Signs (Past 12 Hours) Vital Signs Temp Pulse Pulse Resp BP BP Pulse Ox 04/21/22 23:32 72 18 132/74 95 04/21/22 21:27 37.7 C H 04/21/22 20:14 36 C L 96 H 18 138/75 92 O2 Del Method 04/21/22 23:32 04/21/22 21:27 04/21/22 20:14 Room Air Laboratory Results Laboratory Results WBC 14.44 K/ul (4.8-10.8) H 04/21/22 20:50 RBC 4.43 M/uL (4.20-5.40) 04/21/22 20:50 Hgb 14.3 g/dl (12.0-16.0) 04/21/22 20:50 Hct 41.2 % (37.0-47.0) 04/21/22 20:50 MCV 93.0 fL (80.0-100.0) 04/21/22 20:50 MCH 32.3 pg (25.0-34.0) 04/21/22 20:50 MCHC 34.7 g/dL (32.0-36.0) 04/21/22 20:50 RDW Std Deviation 42.2 fL (36.4-46.3) 04/21/22 20:50 RDW Coeff of Leo 12.2 % (11.5-14.5) 04/21/22 20:50 Plt Count 286 K/uL (130-400) 04/21/22 20:50 MPV 9.6 fL (9.4-12.4) 04/21/22 20:50 Immature Gran % (Auto) 0.4 % 04/21/22 20:50 Neut % (Auto) 78.3 % 04/21/22 20:50 Lymph % (Auto) 10.5 % 04/21/22 20:50 Deuel % (Auto) 9.1 % 04/21/22 20:50 Eos % (Auto) 1.2 % 04/21/22 20:50 Baso % (Auto) 0.5 % 04/21/22 20:50 Neut # (Auto) 11.31 K/uL (1.40-6.50) H 04/21/22 20:50 Lymph # (Auto) 1.52 K/uL (1.2-3.4) 04/21/22 20:50 Deuel # (Auto) 1.31 K/uL (0.11-0.59) H 04/21/22 20:50 Eos # (Auto) 0.17 K/uL (0-0.50) 04/21/22 20:50 Baso # (Auto) 0.07 K/uL (0-0.2) 04/21/22 20:50 Immature Gran # (Auto) 0.06 K/uL (0.01-0.20) 04/21/22 20:50 Sodium 137 mmol/L (136-145) 04/21/22 20:50 Potassium 3.2 mmol/L (3.5-5.1) L 04/21/22 20:50 Chloride 101 mmol/L (98-107) 04/21/22 20:50 Carbon Dioxide 28 mmol/L (21-32) 04/21/22 20:50 Anion Gap 8 (3-11) 04/21/22 20:50 BUN 15 mg/dl (6-23) 04/21/22 20:50 Creatinine 0.74 mg/dl (0.6-1.2) 04/21/22 20:50 Est Cr Clr Drug Dosing Not Reportable 04/21/22 20:50 Est GFR ( Amer) 105.0 ml/min 04/21/22 20:50 Est GFR (Non-Af Amer) 90.6 ml/min 04/21/22 20:50 BUN/Creatinine Ratio 20.3 (10-20) H 04/21/22 20:50 Glucose 141 mg/dl (70-99(Fasting)) H 04/21/22 20:50 Lactate 0.7 mmol/L (0.4-2.0) 04/21/22 22:41 Calcium 9.7 mg/dl (8.5-10.1) 04/21/22 20:50 Total Bilirubin 1.2 mg/dl (0.2-1.0) H 04/21/22 20:50 AST 12 U/L (13-39) L 04/21/22 20:50 ALT 10 U/L (7-52) 04/21/22 20:50 Alkaline Phosphatase 52 U/L (34-104) 04/21/22 20:50 Total Protein 7.8 gm/dl (6.0-8.3) 04/21/22 20:50 Albumin 4.0 gm/dl (3.4-5.0) 04/21/22 20:50 Globulin 3.8 gm/dl (2.5-4.0) 04/21/22 20:50 Albumin/Globulin Ratio 1.1 (0.9-2) 04/21/22 20:50 Lipase 14 U/L (11-82) 04/21/22 20:50 Urine Color Yellow 04/21/22 20:40 Urine Appearance Clear (Clear) 04/21/22 20:40 Urine pH 8.5 (4.5-7.5) H 04/21/22 20:40 Ur Specific Hardy 1.012 (1.000-1.030) 04/21/22 20:40 Urine Protein Negative (Negative) 04/21/22 20:40 Urine Glucose (UA) Negative (Negative) 04/21/22 20:40 Urine Ketones Negative (Negative) 04/21/22 20:40 Urine Blood 1+ (Negative) H 04/21/22 20:40 Urine Nitrite Negative (Negative) 04/21/22 20:40 Urine Bilirubin Negative (Negative) 04/21/22 20:40 Urine Urobilinogen Negative (Negative) 04/21/22 20:40 Ur Leukocyte Esterase 1+ (Negative) H 04/21/22 20:40 Urine WBC (Auto) >30 /hpf (0-5) H 04/21/22 20:40 Urine RBC (Auto) 5-10 /hpf (0-4) H 04/21/22 20:40 U Hyaline Cast (Auto) 0 /lpf (0-5) 04/21/22 20:40 U Epithel Cells (Auto) 5-10 /lpf (0-5) H 04/21/22 20:40 Urine Bacteria (Auto) Negative (Negative) 04/21/22 20:40 SARS-CoV-2, RNA, NAAT NEGATIVE (NEGATIVE) 04/21/22 23:12 Diagnostic Findings [facility] Patient: NASIM TREJO (Female) : 65 Status: ER Date: 04/21/22 22:13 Room #: History: uti, abd pain, chills, ? pyelo appen pres Slices: [phone] Priors: Tech: Cornelius Dumont @ [phone] Exams: CT ABDOMEN & PELVIS With Contrast Contrast: IV Amt: 82 ml ooptiray Accession Numbers: [id number] Referring Physician: CHASIDY CARPIO II Preliminary Findings Only See Final Report For Complete Findings CT ABDOMEN & PELVIS With Contrast: Hepatic steatosis. Cholecystectomy. Normal spleen, adrenal glands, and pancreas. Nonobstructing 2 mm left lower pole renal calculus. Normal urinary bladder. Normal CT appearance of the uterus. Diverticulosis, without acute diverticulitis. No small bowel obstruction. Normal appendix. Multilevel posterior lumbar fusion. IMPRESSION: Mild patchy effort, the left kidney, concerning for pyelonephritis. Nonobstructing 2 mm left lower pole renal calculus. Radiologist: Carlos Amaya MD Study ready at 22:16 and initial results transmitted at 22:34 *This report constitutes a preliminary interpretation only. Non-acute findings felt to be unrelated to the clinical presentation may not be discussed in this report. The study will be interpreted and a final report will be generated by the local Radiologist the following shift. To reach the hospital radiology department call [phone]. Code Status & VTE Plan Code Status Full code VTE Prophylaxis Plan VTE Prophylaxis will be ordered: Yes PG Care Time/CCT Total # of Minutes Spent Total Time Spent with Patient: Total time spent is greater than 50% in coordination of care (as documented) at patient's floor/unit and/or counseling patient: Coding Level of Care Code 35834 INT INP/OBS CARE 2/55MIN Diagnoses Pyelonephritis of left kidney N12 Lumbar stenosis M48.061 Diabetes E11.9 Hypokalemia E87.6 UTI (urinary tract infection) N39.0 Hydronephrosis, left N13.30 Hypertension I10 Hypothyroidism E03.9
[2022-04-22] MEDS ORDERED: GLUCOSE 40% GEL 15 GM TUBE PO PRN (02:21)
[2022-04-22] MEDS ORDERED: ACETAMINOPHEN 325 MG TAB PO PRN (02:21)
[2022-04-22] MEDS ORDERED: CARBOHYDRATES FOR HYPOGLYCEMIA PO PRN (02:21)
[2022-04-22] MEDS ORDERED: DEXTROSE 50% 50 ML SYRINGE IV PRN (02:21)
[2022-04-22] MEDS ORDERED: GLUCOSE 10 TAB/TUBE PO PRN (02:21)
[2022-04-22] MEDS ORDERED: GLUCAGON FOR INJ 1 MG VIAL SQ PRN (02:21)
[2022-04-22] MEDS: ONDANSETRON INJ 2 MG/ML 2 ML VIAL IV PRN ×3 (02:29→19:34)
[2022-04-22] MEDS: oxyCODONE/ACETAMINOPHEN 5mg/325mg TAB PO PRN ×3 (02:30→21:14)
[2022-04-22] MEDS: NSS + 20MEQ KCL 20 MEQ/1,000 ML BAG IV SCH ×2 (05:50→16:49)
[2022-04-22] MEDS: LEVOTHYROXINE SODIUM 25 MCG TABLET PO SCH (05:51)
[2022-04-22 07:45] LABS: Basophils # (auto) 0.05 K/uL (0-0.2); Basophils % (auto) 0.4 %; Eosinophils # (auto) 0.24 K/uL (0-0.50); Hematocrit (blood only) 37.5 % (37.0-47.0); Hemoglobin 12.9 g/dl (12.0-16.0); Immature Granulocytes # (auto) 0.05 K/uL (0.01-0.20); Immature Granulocytes % (auto) 0.4 %; Lymphocytes % (auto) 15.2 %; Mean Corpuscular Hemoglobin 32.5 pg (25.0-34.0); Mean Corpuscular Hgb Conc 34.4 g/dL (32.0-36.0); Mean Corpuscular Volume 94.5 fL (80.0-100.0); Mean Platelet Volume 9.8 fL (9.4-12.4); Monocytes # (auto) 1.45 K/uL (0.11-0.59); Monocytes % (auto) 12.2 %; Neutrophils # (auto) 8.27 K/uL (1.40-6.50); Neutrophils % (auto) 69.8 %; Platelet Count 257 K/uL (130-400); RDW Coefficient of Variation 12.2 % (11.5-14.5); RDW Standard Deviation 42.7 fL (36.4-46.3); Red Blood Count 3.97 M/uL (4.20-5.40); White Blood Count 11.86 K/ul (4.8-10.8)
[2022-04-22 08:04] LABS: Albumin Level 3.5 gm/dl (3.4-5.0); BUN Creatinine Ratio 28.3 (10-20); Creatinine Clr Calc Pharmacy 138.3 ml/min; Est GFR (African American) 118.1 ml/min; Est GFR (Non-African American) 101.9 ml/min; Magnesium 1.9 mg/dl (1.7-2.4); Phosphorus 2.5 mg/dl (2.5-4.9); Potassium 3.2 mmol/L (3.5-5.1)
[2022-04-22] MEDS ORDERED: POTASSIUM CHLORIDE CRTAB 20 MEQ TABCR PO STA (08:29)
[2022-04-22] MEDS: INSULIN ASPART PER UNIT SC SCH ×4 (09:08→21:14)
[2022-04-22] MEDS: cefTRIAXone SODIUM 2,000 MG in DEXTROSE 5% 50 ML IV SCH (09:10)
[2022-04-22] MEDS: FAMOTIDINE 40 MG TABLET PO SCH (09:11)
[2022-04-22] MEDS: LOSARTAN POTASSIUM 25 MG TAB PO SCH (09:12)
--- NOTE | 2022-04-22 09:50 | CT Scan Report ---
CT abd pelvis IV con only CLINICAL HISTORY: uti, abd pain, chills, ? pyelo TECHNIQUE: Helical axial images of the abdomen and pelvis were obtained and displayed. Automated dose lowering techniques and/or adjustment according to patient size were utilized for this exam. This e xam was performed with intravenous contrast. CT DOSE: 1600.96 mGy.cm COMPARISON: Comparison is made to CT abdomen pelvis 04/06/2022 FINDINGS: Lower chest: No acute abnormality. Liver: Unremarkable. No focal lesions are seen. Gallbladder and biliary tree: Patient is status post cholecystectomy. No intra- or extrahepatic bilia ry ductal dilation. Pancreas: Unremarkable, no focal lesions. Spleen: Unremarkable. Adrenals: Unremarkable. Kidneys and ureters: There is patchy wedge shaped hypoenhancement of the left kidney concerning for p yelonephritis. Nonobstructing stone is seen in the left lower pole. Bladder: Limited evaluation due to underdistention. Reproductive organs: Unremarkable. Bowel: Unremarkable. Lymph nodes Retroperitoneal: Subcentimeter lymph nodes are noted. Pelvic: Unremarkable. Mesenteric: Unremarkable. Peritoneum: Normal. Vessels: Unremarkable. Abdominal wall: Unremarkable. Bones: Posterior fixation hardware is seen. IMPRESSION: There is swelling and patchy wedge-shaped hypoenhancement of the left kidney compatible with pyelonep hritis. Additional findings as above. ACT 112: Negative or not required by law. Electronically signed by: Markell Pinto M.D. 04/22/2022 9:48 AM
--- NOTE | 2022-04-22 11:09 | Hospitalist Progress Note ---
Date of Service April 22, 2022 Assessment & Plan (1) Pyelonephritis of left kidney: Plan: - Manifested by grossly infected urine, leukocytosis, and radiologic evidence of pyelo - Recent stent placement on 04/11 d/t ureteral stone w/ L hydro s/p stent removal on 04/18 - Continue empiric Rocephin 2g IV daily - Urine and blood cultures have been collected and are pending - Preliminary urine cx with growth of GNB-await speciation and tailor abx accordingly - Continue IVF hydration - Pain control as ordered (APAP- first line, and Percocet- second line) - Urology consult appreciated (2) Lumbar stenosis: Plan: - Resume Gabapentin 300mg in AM and 600mg at HS (3) Diabetes: Plan: - Controlled w/ last ha1c 6.3% in January 2022 - Routinely takes Metformin 500mg daily and Trulicity weekly - Hold Metformin x 48 hours d/t receiving contrast (4) Hypokalemia: Plan: - Oral replacement ordered - Repeat BMP in AM (5) Hypertension: Plan: - Continue Losartan - BP controlled - HCTZ on hold d/t hypokalemia (6) Hypothyroidism: Plan: - Continue Synthroid Plan Above plan of care has been d/w Dr. Wilkinson. Admission and Anticipated Discharge Date Admission Date: April 21, 2022 Subjective Patient was seen on daily rounds this morning. She is resting in bed, reports some back discomfort but feels this is mainly due to not getting her Gabapentin, is asking that this be resumed from home. She c/o feeling nauseated but was able to eat some breakfast, denies vomiting. No abd or flank pain presently. Denies dysuria. Physical Exam Physical Exam: GENERAL: 56 yo Well-developed, well-nourished WF. NAD. LUNGS: Clear to auscultation bilaterally. CARDIOVASCULAR: Regular rate and rhythm. ABDOMEN: Soft, non-tender and non-distended. Bs normoactive x 4 quad. Results & Data Results & Data ([facility]) Vital Signs (Past 12 Hours) Vital Signs Temp Pulse Resp BP Pulse Ox O2 Del Method 04/22/22 07:40 36.8 C 68 18 132/78 98 Room Air 04/21/22 23:32 72 18 132/74 95 Laboratory Results 04/22/22 06:59 04/22/22 06:59 PG Care Time/CCT Total # of Minutes Spent Total Time Spent with Patient: Total time spent is greater than 50% in coordination of care (as documented) at patient's floor/unit and/or counseling patient: Coding Level of Care Code 60705 SUB INP/OBS CARE 2/35MIN Diagnoses Pyelonephritis of left kidney N12 Lumbar stenosis M48.061 Diabetes E11.9 Hypokalemia E87.6 Hypertension I10 Hypothyroidism E03.9
[2022-04-22] MEDS: GABAPENTIN 300 MG CAP PO SCH (12:35)
[2022-04-22] MEDS: valACYclovir HCL 500 MG TABLET PO SCH ×2 (14:22→21:14)
[2022-04-22 20:43] LABS: A calco-baum cmplx NotReported Not Detected (NotDetected); Bact fragilis Not Reported Not Detected (NotDetected); C auris Not Reported Not Detected (NotDetected); Calbicans Not Reported Not Detected (NotDetected); Candida glabrata Not Reported Not Detected (NotDetected); Candida krusei Not Reported Not Detected (NotDetected); Cneoformans/gatti Not Reported Not Detected (NotDetected); Cparapsilosis Not Reported Not Detected (NotDetected); Ctropicalis Not Reported Not Detected (NotDetected); E cloacae compx Not Reported Not Detected (NotDetected); Efaecalis Not Reported DETECTED (NotDetected); Efaecium Not Reported Not Detected (NotDetected); Enterobacterales Not Reported Not Detected (NotDetected); Escherichia coli Not Reported Not Detected (NotDetected); H influenzae Not Reported Not Detected (NotDetected); K aerogenes Not Reported Not Detected (NotDetected); Koxytoca Not Reported Not Detected (NotDetected); Kpneumoniae grp Not Reported Not Detected (NotDetected); Lmonocyt Not Reported Not Detected (NotDetected); N meningitidis Not Reported Not Detected (NotDetected); P aeruginosa Not Reported Not Detected (NotDetected); Proteus spp Not Reported Not Detected (NotDetected); Salmonella spp Not Reported Not Detected (NotDetected); Smarcescens Not Reported Not Detected (NotDetected); Staph lugdunensis Not Reported Not Detected (NotDetected); Staph spp. Not Reported Not Detected (NotDetected); Staphaureus Not Reported Not Detected (NotDetected); Staphepi Not Reported Not Detected (NotDetected); Stenmaltophilia Not Reported Not Detected (NotDetected); Strep agal(GrpB) Not Reported Not Detected (NotDetected); Strep pneum Not Reported Not Detected (NotDetected); Strep pyog (GrpA) Not Reported Not Detected (NotDetected); Strep spp Not Reported Not Detected (NotDetected); VanAB Resistant Gene VRE Not Detected (NotDetected)
[2022-04-22 20:57] LABS: Enterococcus faecalis DETECTED (NotDetected)
[2022-04-22] MEDS ORDERED: GABAPENTIN 600 MG TAB PO SCH (21:00)
[2022-04-22] MEDS ORDERED: SERTRALINE HCL 50 MG TABLET PO SCH (21:00)
[2022-04-23] MEDS: NSS + 20MEQ KCL 20 MEQ/1,000 ML BAG IV SCH (02:45)
[2022-04-23] MEDS ORDERED: Nursing to Pharmacy Communication SCH (03:15)
[2022-04-23] MEDS: LEVOTHYROXINE SODIUM 25 MCG TABLET PO SCH (06:10)
[2022-04-23] MEDS: oxyCODONE/ACETAMINOPHEN 5mg/325mg TAB PO PRN (06:10)
[2022-04-23 06:34] LABS: Basophils # (auto) 0.04 K/uL (0-0.2); Basophils % (auto) 0.4 %; Eosinophils # (auto) 0.32 K/uL (0-0.50); Hematocrit (blood only) 38.5 % (37.0-47.0); Hemoglobin 12.8 g/dl (12.0-16.0); Immature Granulocytes # (auto) 0.05 K/uL (0.01-0.20); Immature Granulocytes % (auto) 0.5 %; Lymphocytes # (auto) 2.09 K/uL (1.2-3.4); Lymphocytes % (auto) 19.7 %; Mean Corpuscular Hemoglobin 32.1 pg (25.0-34.0); Mean Corpuscular Hgb Conc 33.2 g/dL (32.0-36.0); Mean Corpuscular Volume 96.5 fL (80.0-100.0); Mean Platelet Volume 9.8 fL (9.4-12.4); Monocytes # (auto) 1.01 K/uL (0.11-0.59); Monocytes % (auto) 9.5 %; Neutrophils # (auto) 7.08 K/uL (1.40-6.50); Neutrophils % (auto) 66.9 %; Platelet Count 280 K/uL (130-400); RDW Coefficient of Variation 12.3 % (11.5-14.5); RDW Standard Deviation 43.6 fL (36.4-46.3); Red Blood Count 3.99 M/uL (4.20-5.40); White Blood Count 10.59 K/ul (4.8-10.8)
[2022-04-23 06:54] LABS: Albumin Level 3.5 gm/dl (3.4-5.0); Anion Gap 2 (3-11); BUN Creatinine Ratio 20.3 (10-20); Blood Urea Nitrogen 15 mg/dl (6-23); Calcium 9.2 mg/dl (8.5-10.1); Carbon Dioxide 32 mmol/L (21-32); Chloride 105 mmol/L (98-107); Creatinine Clr Calc Pharmacy 112.2 ml/min; Est GFR (Non-African American) 90.6 ml/min; Glucose 106 mg/dl (70-99(Fasting)); Magnesium 2.2 mg/dl (1.7-2.4); Phosphorus 2.8 mg/dl (2.5-4.9); Sodium 139 mmol/L (136-145)
[2022-04-23] MEDS: LOSARTAN POTASSIUM 25 MG TAB PO SCH (09:04)
[2022-04-23] MEDS: cefTRIAXone SODIUM 2,000 MG in DEXTROSE 5% 50 ML IV SCH (09:05)
[2022-04-23] MEDS: FAMOTIDINE 40 MG TABLET PO SCH (09:05)
[2022-04-23] MEDS: GABAPENTIN 300 MG CAP PO SCH (09:05)
[2022-04-23] MEDS: valACYclovir HCL 500 MG TABLET PO SCH (09:05)
[2022-04-23] MEDS: INSULIN ASPART PER UNIT SC SCH ×2 (09:09→13:06)
--- NOTE | 2022-04-23 12:30 | Discharge Summary ---
Date of Service April 23, 2022 Admission HPI Per Admitting Provider The patient is a 56-year-old female with a past medical history including hypothyroidism, hypertension, diabetes mellitus, kidney stones, vitamin D deficiency, UTI, right hydronephrosis, right ureteral calculus and meningitis. The patient underwent a left ureteroscopy, laser lithotripsy, stone basket extraction, retrograde pyelogram and stent placement on 04/11/2022. She then underwent a stent removal on 04/18/2022. She reports that since that time she has developed the above symptoms of fever, chills, left flank pain and urinary discomfort. CT scan of the abdomen and pelvis in the emergency department this evening showed hepatic steatosis, and findings consistent with left pyelonephritis. From the ED the patient received the following: Ceftriaxone 2 g IV, normal saline 1 L, and Tylenol 1 g IV. Significant laboratories: WBC 14.44, potassium 3.2 and glucose 141. Principal Diagnosis 1. Pyelonephritis 2. Recent ureteral stent with removal 3. Recurrent renal calculi Discharge Exam GENERAL: 56 yo Well-developed, well-nourished WF. NAD. LUNGS: Clear to auscultation bilaterally. CARDIOVASCULAR: Regular rate and rhythm. ABDOMEN: Soft, non-tender and non-distended. Bs normoactive x 4 quad. Discharge Data Allergies Allergy/AdvReac Type Severity Reaction Status Date / Time celecoxib Allergy Intermediate RASH, Verified 04/21/22 23:14 TOLERATES ADVIL latex Allergy Intermediate Rash Verified 04/21/22 23:14 adhesive Allergy Mild REDNESS Verified 04/21/22 23:14 WITH BANDAIDS Consultations 04/21/22 23:09 ED Decision to Admit Stat Ordered Studies Abdomen/Pelvis CT 04/21/22 21:27 CT abd pelvis IV con only CLINICAL HISTORY: uti, abd pain, chills, ? pyelo TECHNIQUE: Helical axial images of the abdomen and pelvis were obtained and displayed. Automated dose lowering techniques and/or adjustment according to patient size were utilized for this exam. This exam was performed with intravenous contrast. CT DOSE: 1600.96 mGy.cm COMPARISON: Comparison is made to CT abdomen pelvis 04/06/2022 FINDINGS: Lower chest: No acute abnormality. Liver: Unremarkable. No focal lesions are seen. Gallbladder and biliary tree: Patient is status post cholecystectomy. No intra- or extrahepatic biliary ductal dilation. Pancreas: Unremarkable, no focal lesions. Spleen: Unremarkable. Adrenals: Unremarkable. Kidneys and ureters: There is patchy wedge shaped hypoenhancement of the left kidney concerning for pyelonephritis. Nonobstructing stone is seen in the left lower pole. Bladder: Limited evaluation due to underdistention. Reproductive organs: Unremarkable. Bowel: Unremarkable. Lymph nodes Retroperitoneal: Subcentimeter lymph nodes are noted. Pelvic: Unremarkable. Mesenteric: Unremarkable. Peritoneum: Normal. Vessels: Unremarkable. Abdominal wall: Unremarkable. Bones: Posterior fixation hardware is seen. IMPRESSION: There is swelling and patchy wedge-shaped hypoenhancement of the left kidney compatible with pyelonephritis. Additional findings as above. ACT 112: Negative or not required by law. Electronically signed by: Markell Pinto M.D. 04/22/2022 9:48 AM Hospital Course (1) Pyelonephritis of left kidney: - Manifested by grossly infected urine, leukocytosis, and radiologic evidence of pyelo - Recent stent placement on 04/11 d/t ureteral stone w/ L hydro s/p stent removal on 04/18 - Continue empiric Rocephin 2g IV daily - Urine and blood cultures have been collected- 1/4 tubes with enterococcus and 1/4 showing prelim GPB. * As patient is clinically improving, blood culture findings are felt to be contaminated - Preliminary urine cx with growth of GNB-pansensitive E. coli - Provided IV fluids - Pain control as ordered (APAP- first line, and Percocet- second line) - Urology was not consulted, would advise outpatient follow up - Transition to Cefdinir 300mg BID x 10 days - next dose due on 04/24 (2) Lumbar stenosis: - Resume Gabapentin 300mg in AM and 600mg at HS (3) Diabetes: - Controlled w/ last ha1c 6.3% in January 2022 - Routinely takes Metformin 500mg daily and Trulicity weekly - Hold Metformin x 48 hours d/t receiving contrast, can resume on 04/24 (4) Hypokalemia: - Oral replacement ordered - Repeat KCl this AM is normal at 4.0 (5) Hypertension: - Continue Losartan - BP controlled - HCTZ on hold d/t hypokalemia- can resme upon dc (6) Hypothyroidism: - Continue Synthroid Plan Patient is medically and hemodynamically stable for discharge home today. Follow up with urology as planned. Follow up with pcp within 1 week. Complete course of antibiotics. Above plan of care has been d/w Dr. Wilkinson who has also seen and evaluated this patient and agrees with aforementioned. Total Time Total Time Spent Total Time Spent (In Minutes): >30 minutes Discharge Plan Discharge Items Patient Disposition: Home - Self-Care Reason For Visit: UTI POST STENT Discharge Diagnosis: urinary tract infection Condition on Discharge: Good Activity: Resume your previous activity Non-emergency contact: Primary Care Provider and Urologist Call non-emergency contact if: you have any medication questions and your symptoms worsen Follow-up/Referrals: Nathan Sosa MD [Primary Care Provider] - Diet: Carb Consistent or DM2 Addtl Attending Provider Instructions: You were hospitalized with findings of a urinary tract infection that ascended up into your left kidney. This is not surprising given your recent kidney stone and stent placement. The bacteria is E. coli which is a common cause of urinary tract infections. You have been treated in the hospital with IV antibiotics but will be transitioned to oral antibiotics to complete a course at home called Cefdinir. You will take the antibiotic twice a day (morning and evening). Take with food. Your next dose is due on 04/24/22 in the morning. Your Metformin was held during your hospitalization due to the interaction with the contrast dye you were given for your CT scan. You can resume this on 04/24/22. You are also being prescribed Zofran in the form of a dissolving tablet that you can use as needed for nausea. Call and schedule an appointment with your primary care provider within 1 week. If you have any questions or concerns after you leave the hospital, feel free to call the nonemergency number listed on your discharge paperwork. In the event of a medical emergency, call 911. Pending Studies at Discharge: No Stand-Alone Forms: My [employer], Smoking Cessation Medications and DC Order Prescriptions: New cefdinir 300 mg capsule 300 mg PO BID 10 Days Qty: 20 0RF ondansetron 4 mg tablet,disintegrating 4 mg PO DAILY PRN (Reason: nausea and vomiting) 4 Days Qty: 10 0RF Continued levothyroxine [Synthroid] 25 mcg tablet 25 mcg PO QAM valacyclovir [Valtrex] 1 gram tablet 1,000 mg PO Q12H PRN (Reason: cold sores) losartan 25 mg tablet 25 mg PO QAM metformin 500 mg Tablet 500 mg PO QAM gabapentin 300 mg Tablet Extended Release 24 Hr See Rx Instructions .ROUTE .COMPLEX Rx Instructions: 300 mg orally ;Take 300mg in the AM, Take 600mg in the PM Medical Marijuana 1 dose PO BID PRN (Reason: Pain) epinephrine [EpiPen 2-Fredrick] 0.3 mg/0.3 mL auto-injector 0.3 mg IM Q4H PRN (Reason: anaphylaxis) Qty: 2 0RF tamsulosin 0.4 mg capsule 0.4 mg PO DAILY PRN (Reason: NEEDED PER PT.) Rx Instructions: POST OP MED sertraline 50 mg Tablet 50 mg PO HS oxycodone-acetaminophen 5-325 mg Tablet 1 tab PO Q8H PRN (Reason: Pain) naproxen 375 mg Tablet 375 mg PO BID hydrochlorothiazide 25 mg tablet 50 mg PO QAM phenazopyridine [Pyridium] 200 mg tablet 200 mg PO Q8H PRN (Reason: pain) Qty: 10 0RF Rx Instructions: POST OP MED famotidine [Pepcid] 40 mg tablet 40 mg PO DAILY Trulicity 0.75 mg/0.5 mL Pen Injector 0.75 mg SUBCUT WK Rx Instructions: TUESDAYS Discharge Orders: Discharge Order (Routine); Ordered 04/23/22 Ordered By: Geno Gallagher Admission Data Admit Date/Time: 04/21/22 23:27 Attending Provider: Sal Wilkinson Admit Provider: Thomas Kumar Primary Care Provider: Nathan Sosa Other Providers: Thomas Kumar Other Interventions: Discharge Summary Assessment (RN) Last Done: 04/23/22 12:35 Coding Level of Care Code HOSP INP/OBS DISCH >30 MIN Diagnoses Pyelonephritis of left kidney N12 Lumbar stenosis M48.061 Diabetes E11.9 Hypokalemia E87.6 Hypertension I10 Hypothyroidism E03.9
--- NOTE | 2022-04-27 10:25 | Coding Query ---
CODING QUERY To promote full compliance with coding requirements relating to patient care, provider participation is requested in all cases of it architect uncertainty. Please assist us with the question(s) below: Coding Question(s): Pyelonephritis is documented and recent ureteral stent with removal is documented and the Discharge Summary documents, "You were hospitalized with findings of a urinary tract infection that ascended up into your left kidney. This is not surprising given your recent kidney stone and stent placement". Please specify below, in your clinical opinion, regarding the most likely source of the Pyelonephritis: ( xx ) Pyelonephritis with unknown most likely source ( ) Pyelonephritis with the recently removed ureteral stent as the most likely source ( ) Pyelonephritis with Other most likely source: Please Specify Physician's Response(s): Thank you Xiao Mc Principal Diagnosis: "that condition established after study, to be chiefly responsible for occasioning the admission of the patient to the hospital for care." Co-Existing Principal Diagnosis: "when two or more diagnoses equally meet the criteria for principal diagnosis as determined by the circumstances of admission, diagnostic work up, and/or therapy provided, and the Alphabetic Index, Tabular List, or another coding guideline does not provide sequencing direction, any one of the diagnoses may be sequenced first." "When the physician has documented what appears to be a current diagnosis in the body of the record, but has not included the diagnosis in the final diagnostic statement, the physician should be asked whether the diagnosis should be added." ([facility] 2 QTR90. p3-4) LAITH
== END 2022-04-23 14:01 | disposition home or self-care (01) | DRG 690 ==
LOC: ED 19:56 → 3N 23:27 → SUATTDRO 23:27 → 3N 04-22 02:03